=== PATIENT | male | born 1955 | race Caucasian/White ===

== ENCOUNTER 2017-09-10 17:36 | Inpatient (IN) | payer BC ==
[~2017-09-10 17:36] MED LIST: Iopamidol 370 76% 100 ML VIAL ONE; Iopamidol 370 76% 50 ML VIAL FS ONE
[2017-09-10] MEDS ORDERED: Morphine 2 MG/ML SYRINGE SLOW IVP PRN ×2 (18:00→18:52)
[2017-09-10] MEDS ORDERED: Nitroglycerin 0.4 MG TAB (25 Tab Bottle) PO PRN (18:00)
[2017-09-10] MEDS ORDERED: Ondansetron ODT 4 MG TAB PO PRN (18:02)
[2017-09-10] MEDS ORDERED: Bisacodyl 5 MG TAB PO PRN (18:02)
[2017-09-10] MEDS ORDERED: Milk Of Magnesia 30 ML UDCUP PO PRN ×2 (18:02→19:24)
[2017-09-10] MEDS ORDERED: Verapamil 5 MG/2 ML VIAL ONE (18:31)
[2017-09-10] MEDS ORDERED: Nitroglycerin 100MG/250ML BOT 250 ML ONE (18:31)
[2017-09-10] MEDS ORDERED: Heparin 10,000 UNITS/1 ML VIAL ONE (18:31)
[2017-09-10] MEDS ORDERED: Fentanyl 100 MCG/2 ML VIAL ONE (18:36)
[2017-09-10] MEDS ORDERED: Midazolam HCl 2 mg/2 ml Vial ONE (18:36)
[2017-09-10] MEDS ORDERED: Enoxaparin Sodium 30 MG/0.3 ML SYRINGE ONE (18:52)
--- NOTE | 2017-09-10 18:52 | PDOC.EVN ---
Event Note - Event Note Event Note: Patient seen briefly. has a significant cardiac history (s/p multiple stents) and presented to [facility] with chest pain. Initial troponin approx. 1.38. Has been reviewed by cardiology and will be taken for cardiac catheterization NAHOMI. Full H&P to follow.
[2017-09-10] MEDS ORDERED: Zolpidem Tartrate 5 MG TAB PO PRN (19:24)
[2017-09-10] MEDS ORDERED: Mag-Al 1200 mg/1200 mg/30 ML UDCUP PO PRN (19:24)
[2017-09-10] MEDS ORDERED: cloNIDine 0.1 MG TAB PO PRN (19:24)
[2017-09-10] MEDS ORDERED: Acetaminophen/Codeine 30-300mg Tablet PO PRN (19:24)
[2017-09-10] MEDS ORDERED: traMADol HCl 50 MG TAB PO PRN (19:24)
[2017-09-10] MEDS ORDERED: Sodium Chloride 0.9% 1,000 ML IV SCH (19:30)
--- NOTE | 2017-09-10 20:24 | CON ---
DATE OF CONSULTATION: 09/10/2017 REASON FOR CONSULTATION: Unstable angina. HISTORY OF PRESENT ILLNESS: Mr. Dorado is a very pleasant 62-year-old gentleman who is a patient of Rhett Cross. He has a history of coronary artery disease, status post stent placement x8 on mul tiple occasions both in [place] and at [facility]. He recently presented with acute onset of chest pain. It began at 1:00. The pain has been intermittent. His troponins were in the indetermin ate range. He received Lovenox in addition to nitroglycerin and morphine. Upon my arrival, after sp eaking with the ER physician x2, continued to have pain. PAST MEDICAL HISTORY: CAD, hypertension, hyperlipidemia, acid reflux, and prostate cancer. FAMILY HISTORY: Positive for CAD. HOME MEDICATIONS: Include Brilinta, Cialis, Crestor, Prilosec, Toprol, hydrochlorothiazide, Zetia, _ ____, Welchol, aspirin, and amlodipine. REVIEW OF SYSTEMS: Ten point review of systems is reviewed and as above, otherwise negative. PHYSICAL EXAMINATION: VITAL SIGNS: Blood pressure 130/70, pulse 80, respirations 20. GENERAL: Patient is a pleasant male/female who is in no acute distress. The patient appears his/her stated age. NEUROLOGIC: The patient is alert and oriented times 3 with no focal neurologic deficits. HEENT: Sclerae without icterus. Mouth has moist mucous membranes with normal pallor. NECK: No JVD. Carotid upstroke brisk. No bruits bilaterally. LUNGS: Clear to auscultation with unlabored respirations. BACK: No scoliosis or kyphosis. CARDIAC: Regular rate and rhythm with normal S1 and S2. No S3 or S4 noted. No significant rubs, mu rmurs, thrills, or gallops noted throughout the precordium. PMI is not displaced. There is no ramya ternal heave. ABDOMEN: Soft, nontender, nondistended. No peritoneal signs present. No hepatosplenomegaly. No ab normal striae. EXTREMITIES: 2+ femoral and 2+ dorsalis pedis pulses. No cyanosis, clubbing, or edema. SKIN: No gross abnormalities. PERTINENT LABS: Peak troponin 0.138, creatinine 1.09. IMPRESSION: 1. Unstable angina. 2. Coronary artery disease. RECOMMENDATIONS: Mr. Dorado continues to have chest pain despite aggressive medical therapy. At this point, I recommend urgent coronary angiography and possible PCI. I discussed the full detail with Emmanuel Dorado and the risks include but are not limited to the following: , stroke, CO, need for emergency surgery, loss of limb, bleeding, and infection, as well as a re action to the dye causing kidney failure and needing long-term dialysis. Other risks include acute st ent thrombosis and restenosis, vessel dissection, perforation, need for emergency surgery in addition to distal embolization causing chronic foot discomfort as well as amputation. All questions were an swered. I also discussed drug-coated versus nondrug-coated stent placement. We will proceed with ug-coated stent placement if needed. There are no contraindications. Further recommendations are pe nding the above.
[2017-09-10] MEDS ORDERED: Heparin 5,000 UNITS/ML VIAL SC SCH (21:00)
[2017-09-10] MEDS: Acetaminophen 325 MG TAB PO PRN (21:42)
[2017-09-10 23:13] VITALS: BMI 24.7
[2017-09-11 03:21] LABS: #Basophils 0.1 thou/uL (0.0-0.2); #Eosinphils 0.2 thou/uL (0.0-0.7); #Lymphocytes 2.5 thou/uL (1.20-3.40); #Monocytes 0.7 thou/uL (0.11-0.59); #Neutrophils 4.2 thou/uL (1.40-6.50); %Basophils 0.6 % (0.0-1.0); %Eosinophils 2.8 % (0.0-10.0); %Lymphocytes 32.7 % (21.0-51.0); %Monocytes 9.3 % (0.0-10.0); %Neutrophils 54.6 % (42.0-75.0); Hemoglobin 13.1 g/dL (14.0-18.0); Mean Corpuscular HGB CONC 33.8 g/dL (32.0-36.0); Mean Corpuscular Hemoglobin 30.1 pg (27.0-31.0); Mean Corpuscular Volume 89.1 fl (80.0-94.0); Mean Platelet Volume 8.5 fL (7.4-10.4); Platelet Count 173 thou/uL (130-400); RBC Distribution Width 12.7 % (11.5-14.5); Red Blood Cell (RBC) Count 4.36 mill/uL (4.70-6.10); White Blood Cell (WBC) Count 7.7 thou/uL (4.8-10.8)
[2017-09-11] MEDS: Acetaminophen 325 MG TAB PO PRN (06:43)
[2017-09-11] MEDS ORDERED: COLESEVELAM HCL 1875 MG PO SCH (09:00)
[2017-09-11] MEDS ORDERED: Fish Oil 1,000 MG CAP PO SCH (09:00)
[2017-09-11] MEDS ORDERED: Amlodipine 5 mg/Benazepril 20 mg CAP PO SCH (09:00)
[2017-09-11] MEDS ORDERED: Allopurinol 300 MG TAB PO SCH (09:00)
[2017-09-11] MEDS ORDERED: TICAGRELOR 90 MG TABLET PO SCH (09:00)
[2017-09-11 09:01] LABS: Anion Gap 11 mmol/L (10-20); BUN (Urea Nitrogen) 14 mg/dL (8.4-25.7); Calc. Creatinine Clearance 87 mL/min (70-130); Calcium 8.6 mg/dL (7.8-10.44); Carbon Dioxide 25 mmol/L (23-31); Chloride 107 mmol/L (98-107); Estimated GFR-MDRD 73; Glucose 89 mg/dL (80-115); Potassium 4.2 mmol/L (3.5-5.1); Sodium 139 mmol/L (136-145)
[2017-09-11 11:16] VITALS: BP 148/79
[2017-09-11 14:09] LABS: Troponin I 0.233 ng/mL (< 0.028)
[2017-09-11] MEDS ORDERED: Clopidogrel Bisulfate 75 MG TAB PO SCH (14:45)
--- NOTE | 2017-09-11 15:30 | HP ---
HISTORY OF PRESENT ILLNESS: A 62-year-old male with a past medical history of CAD status post 8 sten ts, GERD, essential hypertension, prostate cancer, hyperlipidemia, and obesity who presented to the mergency room today with a 2-day history of intermittent chest pain. Patient describes the pain as p ressure-like, substernal, radiating to his jaw and arms and associated with shortness of breath and d iaphoresis. The pain was about a 4/10, but earlier today, he was in extreme pain, rated 10/10 and hi s symptoms were progressively worsening, so he decided to present to the hospital. It was associated with some nausea, but no episodes of vomiting. He has no other cardiac, abdominal or urinary sympto ms. He was seen at [facility] where he did not have any EKG changes, but had an elevated troponin of 0.138. Cardiology was consulted and the patient was recommended to be sent to [facility] for urgent cardiac catheterization. ALLERGIES: PENICILLIN and STATINS. PAST MEDICAL HISTORY: Per HPI. HOME MEDICATIONS: Evolocumab ___ mg, tadalafil 5 mg p.o. daily, allopurinol 300 mg daily, amlodipine /benazepril 1 capsule p.o. daily, aspirin 81 mg daily, colesevelam 1875 mg p.o. b.i.d., ezetimibe 100 mg p.o. at bedtime, fish oil 2000 mg p.o. daily, metoprolol 25 mg p.o. daily, omeprazole 40 mg p.o. b.i.d., rosuvastatin 2.5 mg p.o. at bedtime, and Brilinta 90 mg p.o. b.i.d. PAST SURGICAL HISTORY: 1. Multiple stents placed. 2. Umbilical hernia repair. 3. Bilateral rotator cuff repairs. 4. Prostatectomy. 5. Cataract removal. SOCIAL HISTORY: Denies tobacco, alcohol, or illicit drugs. REVIEW OF SYSTEMS: GENERAL: Denies fever, weight changes, changes in appetite. HEENT: Denies headache, vision changes, sore throat, dysphagia. SKIN: Denies rashes or lesions. CARDIOVASCULAR: Per HPI. RESPIRATORY: Positive shortness of breath, but negative for cough or wheezing. GASTROINTESTINAL: Positive nausea, otherwise negative. GENITOURINARY: Negative. MUSCULOSKELETAL: Negative. NEUROLOGIC: Negative. HEMATOLOGIC: Denies easy bruising. PHYSICAL EXAMINATION: VITAL SIGNS: On admission, temperature 97.5, pulse 50, oxygen saturation 98% on room air, and blood pressure 113/70. GENERAL: Alert and well oriented, in mild to moderate distress secondary to chest pain. SKIN: No rashes or lesions. HEENT: Normocephalic, atraumatic. PERRLA. Extraocular muscles intact. Moist mucous membrane. HEART: Regular rate and rhythm. No murmurs, rubs or gallops. Mild tenderness to chest on palpation . LUNGS: Clear to auscultation bilaterally. No wheezes or rales. ABDOMEN: Bowel sounds positive, nontender, nondistended. EXTREMITIES: Full range of movement throughout. No joint pain. NEUROLOGIC: Oriented to time, place and person. No focal deficits. LABORATORY DATA: CBC and CMP largely unremarkable. Chest x-ray showed no acute pathology. ASSESSMENT AND PLAN: 1. Xcg-UO-xrueodp elevation myocardial infarction. The patient with a significant cardiac history p resenting with unstable angina. Initial troponin was elevated and the patient was taken to the [facility] for urgent catheterization. He will be continued on aspirin and Plavix and fuentes ssessed in the morning. 2. Hypertension, stable and . We will continue home regimen. 3. Hyperlipidemia. We will continue on rosuvastatin. 4. For his coronary artery disease, he will also be placed on sublingual nitroglycerin p.r.n., IV mo rphine p.r.n. for chest pain as well. 5. Cardiology to follow with us.
[2017-09-11 16:16] LABS: Troponin I 1.166 ng/mL (< 0.028)
[2017-09-11 16:17] VITALS: TEMP 98
[2017-09-11] MEDS ORDERED: Rosuvastatin 5 MG TAB PO SCH (21:00)
[2017-09-11] MEDS ORDERED: Ezetimibe 10 MG TAB PO SCH (21:00)
--- NOTE | 2017-09-12 00:56 | DIS ---
DATE OF ADMISSION: 09/10/2017 DATE OF DISCHARGE: 09/11/2017 CONDITION AT DISCHARGE: Stable and improved. DISCHARGE DIAGNOSIS: Non-ST elevation myocardial infarction. SECONDARY DIAGNOSES: Coronary artery disease with multiple stents, gastroesophageal reflux disease, essential hypertension, prostate cancer, hyperlipidemia, obesity. DISCHARGE MEDICATIONS: allopurinol 300 mg p.o. daily, amlodipine/benazepril 1 capsule p.o. daily, aspirin 81 mg p.o. daily, colesevelam 1875 mg p.o. b.i.d., evolocumab 140 mg, ezetimibe 10 mg p.o. at bedtime, fish oil 2000 mg p.o. daily , metoprolol succinate 25 mg p.o. daily, sublingual nitroglycerin 0.4 mg p.o. q.5 minutes p.r.n. for chest pain, omeprazole 40 mg p.o. b.i.d., rosuvastatin 2.5 mg p.o. at bedtime, tadalafil 5 mg p.o. daily, ticagrelor 90 mg p.o. b.i.d. HOSPITAL COURSE: A 62-year-old man who presented with a 2-day history of worsening chest pain intermittent, pressure-like, radiating to his arms and jaw , and associated with shortness of breath and diaphoresis. He was seen at the emergency room, where EKG showed no acute changes but he had elevated troponin. Cardiology was immediately consulted and patient was sent to [facility] for left heart catheterization where a stent was placed. This will be the patient' s 9th stent placement. He tolerated procedure well and remained stable for the next 24 hours, after which he was discharged safely home. PROCEDURES: 1. Cardiac catheterization. 2. EKG. 3. Chest x-ray. DIET: Heart-healthy diet. CONSULT: Cardiology. ACTIVITY: To resume as tolerated. Health care goals. FOLLOWUP: Patient is to follow up with his primary care physician within 1 week of discharge. He is advised to take his medications as prescribed. He is to return to the emergency room if he develops any chest pain or shortness of breath. PHYSICAL EXAMINATION: Patient was examined on the day of discharge. VITAL SIGNS: Remained stable. GENERAL: Alert and well oriented, not in acute distress. SKIN: No rashes or lesions. HEENT: Normocephalic, atraumatic. Extraocular muscles intact. Moist mucous membranes. CARDIOVASCULAR: Regular rate and rhythm. No murmurs, rubs, or gallops. CHEST: Nontender to palpation. Clear to auscultation bilaterally with no wheezes or rales. ABDOMEN: Bowel sounds positive, nontender, nondistended. No hepatosplenomegaly. EXTREMITIES: Full range of movement throughout. NEUROLOGIC: Oriented to time, place, and person, alert, no focal deficits. SKIN: No rashes or lesions. Warm and well perfused. LABORATORY DATA: CBC and CMP unremarkable. Troponin trended down. DISPOSITION: Discharged to home. DIET: Heart-healthy diet. Total time of discharge about 60 minutes including medication reconciliation, chart review, and documentation. [facility]
[2017-09-12] MEDS ORDERED: Clopidogrel Bisulfate 75 MG TAB PO SCH (09:00)
--- NOTE | 2017-09-12 15:15 | EKG ---
Test Reason : Blood Pressure : / mmHG Vent. Rate : 053 BPM Atrial Rate : 053 BPM P-R Int : 168 ms QRS Dur : 082 ms QT Int : 418 ms P-R-T Axes : 088 023 002 degrees QTc Int : 392 ms Sinus bradycardia Otherwise normal ECG Confirmed by JULIANN JOSE, JEEVAN ([id number]), fashion editor ROLDAN LINTON ([id number]) on 09/12/2017 3:14:50 PM Referred By: Confirmed By:JEEVAN HUMPHREYS MD
== END 2017-09-11 18:45 | disposition home or self-care (01) | DRG 247 ==
LOC: ERS 17:36 → CCU 21:38
PROVIDERS: ADMIT Internal Medicine; ATTEND Internal Medicine
PROC: 027034Z Dilation of Coronary Artery, One Artery with Drug-eluting Intraluminal Device, Percutaneous Approach (ICD-10-PCS; principal; 2017-09-10)
PROC: 4A023N7 Measurement of Cardiac Sampling and Pressure, Left Heart, Percutaneous Approach (ICD-10-PCS; 2017-09-10)
PROC: B2151ZZ Fluoroscopy of Left Heart using Low Osmolar Contrast (ICD-10-PCS; 2017-09-10)
DX: I21.4 Non-ST elevation (NSTEMI) myocardial infarction (principal); C61 Malignant neoplasm of prostate; I25.110 Atherosclerotic heart disease of native coronary artery with unstable angina pectoris; E78.5 Hyperlipidemia, unspecified; I10 Essential (primary) hypertension; K21.9 Gastro-esophageal reflux disease without esophagitis; E66.9 Obesity, unspecified; Z68.24 Body mass index [BMI] 24.0-24.9, adult; Z95.5 Presence of coronary angioplasty implant and graft; Z88.0 Allergy status to penicillin; Z88.9 Allergy status to unspecified drugs, medicaments and biological substances; Z82.49 Family history of ischemic heart disease and other diseases of the circulatory system
CPT/HCPCS: 36415; 71045; 80048; 80053; 82553; 84484; 85025; 92928; 93005; 93010; 93306; 93458; 93798; 94760; 96361; 96372; 96374; 96375; 99152; 99153; A4216; C1725; C1769; C1874; C1887; C9600; J1644; J1650; J2250; J2270; J2405; J3010

== ENCOUNTER 2017-09-15 18:54 | Inpatient (IN) | payer BC ==
[2017-09-15] MEDS ORDERED: Nitroglycerin 2% Ointment 1 INCH/1 GM Packet ONE (19:11)
[2017-09-15 19:17] LABS: #Basophils 0.1 thou/uL (0.0-0.2); #Eosinphils 0.2 thou/uL (0.0-0.7); #Lymphocytes 2.1 thou/uL (1.20-3.40); #Monocytes 0.6 thou/uL (0.11-0.59); #Neutrophils 3.6 thou/uL (1.40-6.50); %Basophils 1.4 % (0.0-1.0); %Eosinophils 3.6 % (0.0-10.0); %Lymphocytes 31.9 % (21.0-51.0); %Monocytes 8.5 % (0.0-10.0); %Neutrophils 54.6 % (42.0-75.0); Mean Corpuscular HGB CONC 33.4 g/dL (32.0-36.0); Mean Corpuscular Hemoglobin 28.4 pg (27.0-31.0); Mean Platelet Volume 10.1 fL (7.4-10.4); Platelet Count 187 thou/uL (130-400); RBC Distribution Width 12.1 % (11.5-14.5); Red Blood Cell (RBC) Count 4.95 mill/uL (4.70-6.10); White Blood Cell (WBC) Count 6.6 thou/uL (4.8-10.8)
[2017-09-15 19:33] LABS: ALT (SGPT) 28 U/L (8-55); AST (SGOT) 23 U/L (5-34); Albumin 4.3 g/dL (3.4-4.8); Alkaline Phosphatase 79 U/L (40-150); Anion Gap 15 mmol/L (10-20); BUN (Urea Nitrogen) 14 mg/dL (8.4-25.7); Bilirubin, Total 0.4 mg/dL (0.2-1.2); CK (CPK) 185 U/L (30-200); Calc. Creatinine Clearance 0 mL/min (70-130); Calcium 9.4 mg/dL (7.8-10.44); Carbon Dioxide 24 mmol/L (23-31); Chloride 104 mmol/L (98-107); Estimated GFR-MDRD 66; Globulin 2.5 g/dL (2.4-3.5); Glucose 125 mg/dL (80-115); Potassium 4.3 mmol/L (3.5-5.1); Protein, Total 6.8 g/dL (5.8-8.1); Sodium 139 mmol/L (136-145)
[2017-09-15 19:34] LABS: CKMB 3.3 ng/mL (0-6.6)
[2017-09-15 19:46] LABS: Troponin I 0.446 ng/mL (< 0.028)
[2017-09-15] MEDS ORDERED: Enoxaparin Sodium 100 MG/ML SYRINGE ONE (20:07)
[2017-09-15] MEDS ORDERED: Ondansetron HCl/PF 4 MG/2 ML Vial ONE ×2 (20:17→23:04)
--- NOTE | 2017-09-15 20:17 | RAD ---
PORTABLE CHEST: 09/15/17 HISTORY: Chest pain. COMPARISON: 09/10/17 study. The heart size is within normal limits. Mediastinal structures appear unremarkable. The lungs are ming ar of infiltrates. Postoperative changes of the right shoulder are noted. IMPRESSION: No active intrathoracic disease. POS: [facility]
[2017-09-16 01:55] LABS: Troponin I 0.384 ng/mL (< 0.028)
[2017-09-16 01:59] VITALS: BMI 28.8
[2017-09-16] MEDS ORDERED: Ondansetron HCl/PF 4 MG/2 ML Vial IVP PRN ×2 (02:03→08:28)
[2017-09-16] MEDS ORDERED: Ondansetron ODT 4 MG TAB SL PRN (02:03)
[2017-09-16] MEDS ORDERED: Nitroglycerin 2% Ointment 1 INCH/1 GM Packet TOP SCH ×2 (06:00→14:00)
[2017-09-16] MEDS ORDERED: HYDROcodone/Acetaminophen 5/325 mg Tablet PO PRN (08:28)
[2017-09-16] MEDS ORDERED: Ondansetron ODT 4 MG TAB PO PRN (08:28)
[2017-09-16] MEDS ORDERED: Labetalol HCl 100 MG/20 ML VIAL SLOW IVP PRN (08:28)
[2017-09-16] MEDS ORDERED: Sodium Chloride 0.9% 1,000 ML IV SCH (08:45)
--- NOTE | 2017-09-16 08:45 | HP ---
PRIMARY CARE PHYSICIAN: Zaid Trevino D.O. CHIEF COMPLAINT: Chest pain. HISTORY OF PRESENT ILLNESS: Mr. Dorado is a very pleasant 62-year-old gentleman who has a history of coronary artery disease. He has a history of previous stents placed and most recently he had a stent placed on 09/11/2017, which was just about 4 or 5 days ago. He says this is a 9th stent that he had . He says after having the stent placed, he went home and was feeling fine and then yesterday, he sa ys that he felt like getting up and getting out of the house, so he did some chores outside. He says he was doing quite a bit of walking and even some bending and stooping and says that he felt like he should probably cool down a bit and so he went inside and ate and sat on the couch and then shortly after eating, he began feeling tightness or pain in his chest. He also was concerned because he noti cristal that his blood pressure started to go up. It started at around 140/82. He waited a while and re checked it and it was 150/82 and then got as high as 160/82. He says that he began having again the tightness and then started to feel like it was squeezing. This concerned him because it was very sim ilar to the pain that he has had when he has had previous stents placed. He also said he had some ti ngling going into his left arm and he felt a bit nauseated. He called his and she basically azael ded him up in the car and started to bring him to the hospital. He says that while he was in the car he started getting nauseated and was having dry heaving. He then started feeling some shortness of breath as well. He says that he finally got to the emergency room at [facility]. There they pu t on nitroglycerin patch on him and gave him some morphine. He says that then he started getting a b it lightheaded, but he thinks that was probably due to the morphine. Now we are seeing him and he sa ys he feels fine. His chest pain has been relieved. He is no longer symptomatic. While he was in t he ER, he was evaluated. He had an EKG done which did not show any significant changes; however, his troponin was elevated at 0.4 initially and for this reason he is being placed in observation to be e valuated by Cardiology. REVIEW OF SYSTEMS: CONSTITUTIONAL: There has been no mention of any fevers, chills, no night sweats , no weight loss. HEENT: The patient does complain of a headache. He attributes it to the nitrogly cerin. He did have one episode of dizziness or lightheadedness, but no other complaints such as sore throat, rhinorrhea, neck pain or adenopathy. PULMONARY: He has occasional cough, but no hemoptysis . CARDIOVASCULAR: Primarily as of the history of present illness. He also denies any PND or orthop bassam. No lower extremity edema. GASTROINTESTINAL: He has had nausea and dry heaving, but no vomitin g, no diarrhea, no melena. GENITOURINARY: No urinary frequency or hematuria. MUSCULOSKELETAL: No mention of any muscle pains, weakness or joint pains. NEUROLOGIC: No focal weakness, numbness, no s eizures. PSYCHIATRIC: He did say he did feel a little bit anxious, but no depression. PAST MEDICAL HISTORY: Significant for hypertension, coronary artery disease, prostate cancer, season al allergies, and dyslipidemia. PAST SURGICAL HISTORY: He has had a prostatectomy, rotator cuff surgery, tonsillectomy, multiple prashant nts placed, 9 total, it sounds primarily to right coronary artery. ALLERGIES: STATINS which caused his joints to lock up. He says he is able to tolerate a low dose Cr estor every other day. FAMILY HISTORY: Significant for hypertension and heart disease as well as elevated cholesterol. CURRENT MEDICATIONS: Include Prilosec 40 mg twice daily, amlodipine/benazepril 5/20 daily, metoprolo l succinate 25 mg daily, allopurinol 300 mg daily, Welchol 1875 mg twice a day, Zetia 10 mg daily, Cr estor 2.5 mg every other day, aspirin 81 mg daily, Cialis 5 mg daily, fish oil 2000 mg daily, Nitrost at p.r.n., Brilinta 90 mg twice a day. PHYSICAL EXAMINATION: GENERAL: He is alert and oriented. He appears to be in no acute distress. VITAL SIGNS: Blood pressure was 126/70, heart rate 60, respiratory rate of 18, temperature is 98.6. HEENT: Pupils are equal, round, and reactive. Extraocular muscles are intact. His sclerae are anic teric. Throat; no erythema, no exudates. NECK: No adenopathy, no bruits. LUNGS: Clear to auscultation. I did not appreciate any wheezing or rales. CARDIOVASCULAR: He has a normal S1, S2. There is no S3 or S4. No murmurs, clicks or rubs. ABDOMEN: Soft, nontender, and nondistended. Positive for bowel sounds. No rebound or guarding. EXTREMITIES: There is no clubbing, cyanosis, no edema. He has palpable dorsalis pedis pulses bilate rally. NEUROLOGIC: Neurologically, exam is nonfocal. IMAGING DATA AND LABORATORY DATA: Again on his EKG, it was sinus rhythm, rate was 65. There are no ST wave changes. Sodium is 139, potassium 4.3, chloride is 104, CO2 is 24, BUN of 14, creatinine 1.1 2, and glucose is 125. White blood cell count 6.6, hemoglobin 14, hematocrit is 42, platelet count i s 187 and on his troponin, the initial was 0.446. ASSESSMENT AND PLAN: This is a pleasant 62-year-old gentleman who presents to the emergency room wit h a recurrence of chest pain which is very similar to angina which he has experienced in the past. Kristie beckwith also has elevated troponin level. The initial troponin was actually slightly higher than the tropo troy that he had initially on his previous admission. He will be placed in observation. We will star t him on aspirin and nitrates, continue Brilinta, continue to trend his cardiac enzymes few more time . Continue his beta jaime therapy and consult Cardiology for further recommendations. For dyslipi demia, we will continue his usual home medications for this. Hypertension. Again, we will continue his home medications. See if this appears to be well controlled at this time. Further recommendatio ns will be based on Cardiology consultation.
[2017-09-16] MEDS ORDERED: Lorazepam 0.5 MG TAB PO PRN (08:49)
[2017-09-16] MEDS ORDERED: Non-Formulary Item 1 EACH (Omeprazole Magnesium [Prilosec] 40 MG) PO SCH (09:00)
[2017-09-16] MEDS ORDERED: Colesevelam Hcl [Welchol] 1,875 MG PO SCH (09:00)
[2017-09-16] MEDS ORDERED: COLESEVELAM HCL 1875 MG PO SCH (09:00)
[2017-09-16] MEDS: Docusate 100 MG CAP PO SCH ×2 (09:19→21:11)
[2017-09-16] MEDS: Fish Oil 1,000 MG CAP PO SCH (09:19)
[2017-09-16] MEDS: Allopurinol 300 MG TAB PO SCH (09:19)
[2017-09-16] MEDS: Acetaminophen 325 MG TAB PO PRN ×2 (09:20→21:10)
[2017-09-16] MEDS: TICAGRELOR 90 MG TABLET PO SCH ×2 (10:44→21:11)
[2017-09-16] MEDS: Amlodipine 5 mg/Benazepril 20 mg CAP PO SCH (10:44)
--- NOTE | 2017-09-16 11:58 | CON ---
DATE OF CONSULTATION: 09/16/2017 REASON FOR CONSULTATION: Chest pain, recent stent implantation, unstable angina. HISTORY OF PRESENT ILLNESS: Mr. David Dorado is a 62-year-old man. He recently was admitted to the hospital with intractable chest pain. He was seen by Dr. Rea and taken to cardiac catheteriza tion lab, 09/10/2017. The patient had multiple stents implanted in the right coronary artery at prev ious visits. The patient had a critical stenosis in the right coronary artery and underwent repeat s tent implantation. The stent, which was placed, was a day drug-eluting stent, which was post-dilated high pressure. The stent was a Synergy 3.5 x 20 mm, dilated to 4 mm in maximum inflation at 16 atmo spheres. The patient did well. He was released home. The next day he felt some soreness in his chest, but no chest pain. Last night after walking, he has had a chest pressure, which did not resolve. He had n itroglycerin, but was not sure this is a reason to take it. He went to the emergency room. He recei annmarie nitro paste and had gradual resolution of discomfort, resting comfortably now. He said this is i dentical in nature in terms of the previous angina, but not as severe what he had had last week. MEDICATIONS: 1. Aspirin. 2. Brilinta. 3. Cannot take statins, he is allergic 4. Repatha. 5. Metoprolol. 6. He is on nitrates now. FAMILY HISTORY: Negative for heart disease at a young age. ALLERGIES: STATINS and PENICILLIN. REVIEW OF SYSTEMS: Constitutional: No significant weight gain or loss. Vision: No changes. Heari ng: No changes. Pulmonary: No cough or wheezing. Gastrointestinal: No nausea, vomiting, diarrhea . Skin: No rashes. Neurologic: No unilateral weakness or numbness. Psychiatric: No unusual depr ession or anxiety. PHYSICAL EXAMINATION: GENERAL: This is a pleasant 62-year-old man in no distress. VITAL SIGNS: Blood pressure 124/64, pulse 50 and it is regular. HEENT: Eyes: Sclerae nonicteric. Mouth: Mucous membranes moist. NECK: Supple, no lymphadenopathy. LUNGS: Clear, no wheezing, rales, or rhonchi. CARDIAC: Normal S1, normal S2. There is no murmur, rub, or gallop. ABDOMEN: Soft, nontender, no hepatosplenomegaly. EXTREMITIES: Warm, dry. No clubbing, cyanosis, or edema. Review of records, recent ejection fraction was 50%-55%, distal RV hypokinetic. PERTINENT LABORATORY DATA: The troponin is 0.446 on admission and it trended down to 0.340 today. T he peak troponin last week was 1.16. EKG did not show any ischemic changes. ASSESSMENT: 1. Unstable angina. 2. Recent stent implantation for non-ST elevation infarction. The patient is pain free now. Clearly, this is not a stent thrombosis. Most likely, this represents pain and small amount of injury due to occlusion or stenosis of side branches to the right ventricle . PLAN: 1. We will repeat echocardiogram to reevaluate the left ventricular wall motion. The patient will c ontinue all other medicines, unchanged. 2. Reduce nitrates as he is having severe headaches. If he is doing well tomorrow, we will release him home. If pain persists, could consider repeat catheterization, but this is most likely side bran ch issues and no interventional therapy would be indicated in this situation.
[2017-09-16 13:11] LABS: Critical Call Chem Troponin I RESULT DECREASING; Troponin I 0.316 ng/mL (< 0.028)
[2017-09-16] MEDS: Nitroglycerin 2% Ointment 1 INCH/1 GM Packet TOP SCH ×2 (14:53→21:13)
[2017-09-16] MEDS ORDERED: Ezetimibe 10 MG TAB PO SCH (21:00)
[2017-09-16] MEDS ORDERED: Rosuvastatin 5 MG TAB PO SCH (21:00)
[2017-09-17 06:00] LABS: #Eosinphils 0.2 thou/uL (0.0-0.7); #Lymphocytes 1.8 thou/uL (1.20-3.40); #Monocytes 0.6 thou/uL (0.11-0.59); #Neutrophils 3.2 thou/uL (1.40-6.50); %Basophils 0.6 % (0.0-1.0); %Lymphocytes 30.4 % (21.0-51.0); %Monocytes 10.6 % (0.0-10.0); %Neutrophils 54.3 % (42.0-75.0); Hemoglobin 13.6 g/dL (14.0-18.0); Mean Corpuscular HGB CONC 33.9 g/dL (32.0-36.0); Mean Corpuscular Hemoglobin 30.1 pg (27.0-31.0); Mean Corpuscular Volume 88.7 fl (80.0-94.0); Mean Platelet Volume 9.2 fL (7.4-10.4); Platelet Count 181 thou/uL (130-400); RBC Distribution Width 12.5 % (11.5-14.5); Red Blood Cell (RBC) Count 4.52 mill/uL (4.70-6.10); White Blood Cell (WBC) Count 5.9 thou/uL (4.8-10.8)
[2017-09-17 06:25] LABS: Anion Gap 12 mmol/L (10-20); BUN (Urea Nitrogen) 18 mg/dL (8.4-25.7); Calc. Creatinine Clearance 109 mL/min (70-130); Calcium 9.1 mg/dL (7.8-10.44); Carbon Dioxide 25 mmol/L (23-31); Chloride 107 mmol/L (98-107); Estimated GFR-MDRD 81; Glucose 92 mg/dL (80-115); Potassium 3.9 mmol/L (3.5-5.1); Sodium 140 mmol/L (136-145)
[2017-09-17 06:33] LABS: Troponin I 0.207 ng/mL (< 0.028)
[2017-09-17] MEDS: Fish Oil 1,000 MG CAP PO SCH (07:59)
[2017-09-17] MEDS: Allopurinol 300 MG TAB PO SCH (07:59)
[2017-09-17] MEDS: Amlodipine 5 mg/Benazepril 20 mg CAP PO SCH (07:59)
[2017-09-17] MEDS: TICAGRELOR 90 MG TABLET PO SCH (08:00)
[2017-09-17] MEDS: Docusate 100 MG CAP PO SCH (08:03)
[2017-09-17] MEDS: Nitroglycerin 2% Ointment 1 INCH/1 GM Packet TOP SCH (08:29)
--- NOTE | 2017-09-17 10:57 | PDOC.PN ---
- Subjective Encounter Start Date: 09/17/17 Encounter Start Time: 10:55 Mr. rosas is feeling better today. He has not had any chest pain today. He has been up walking around without difficulty. - Objective Resuscitation Status: Resuscitation Status FULL:Full Resuscitation MAR Reviewed: Yes Vital Signs & Weight: Vital Signs (12 hours) Temp Pulse Resp BP BP Pulse Ox 09/17/17 08:01 98.3 F 55 L 20 97 09/17/17 07:22 98.3 F 55 L 20 115/69 97 09/17/17 05:01 95 09/17/17 04:00 98.1 F 49 L 16 126/74 95 09/17/17 00:00 98.2 F 54 L 14 111/61 96 Weight Weight 213 lb 1.6 oz I&O: 09/16/17 09/17/17 09/18/17 06:59 06:59 06:59 Intake Total 470 1350 Output Total 0 Balance 470 1350 Result Diagrams: 09/17/17 04:28 09/17/17 04:28 Phys Exam - Physical Examination HEENT: PERRLA Respiratory: no wheezing, no rales, no rhonchi, clear to auscultation bilateral Cardiovascular: RRR, no significant murmur Gastrointestinal: soft, non-tender, positive bowel sounds Musculoskeletal: no edema Dx/Plan (1) Angina pectoris without myocardial infarction Code(s): I20.9 - ANGINA PECTORIS, UNSPECIFIED Status: Acute (2) CAD (coronary artery disease) Code(s): I25.10 - ATHSCL HEART DISEASE OF [place] CORONARY ARTERY W/O ANG PCTRS Status: Acute (3) HLD (hyperlipidemia) Code(s): E78.5 - HYPERLIPIDEMIA, UNSPECIFIED Status: Acute (4) HTN (hypertension) Code(s): I10 - ESSENTIAL (PRIMARY) HYPERTENSION Status: Acute - Plan * Angina- improved. Cardiology evaluation noted * Echo has been done, and awaiting results * HTN - blood pressure is stable. * Possibly home later today
[2017-09-17 11:26] VITALS: BP 110/66; TEMP 98.6
--- NOTE | 2017-09-17 13:31 | PRG ---
DATE OF SERVICE: 09/17/2017 SUBJECTIVE: Mr. Dorado has had no further chest pain. He feels well. OBJECTIVE: VITAL SIGNS: His blood pressure 110/66, pulse 53 and regular. LUNGS: Clear. CARDIAC: Normal S1, normal S2. ABDOMEN: Soft, nontender. EXTREMITIES: No edema. Echocardiogram showed normal left ventricular function. The troponin level continues to trend down, down to 0.207 today. ASSESSMENT: 1. Recent stent implantation in the right coronary artery for severe recent in-stent restenosis. 2. Recurrent chest pain associated with low level troponin and acute coronary syndrome, probably rel ated to right ventricular branches stented across. PLAN: The patient will be released home on the current medical regimen. See me in the office in [facility] a month. The patient has had no further chest pain since admission.
--- NOTE | 2017-09-18 15:44 | DIS ---
DATE OF ADMISSION: 09/16/2017 DATE OF DISCHARGE: 09/17/2017 PRIMARY CARE PROVIDER: Zaid Trevino D.O. DISCHARGE DISPOSITION: Home. PRIMARY DISCHARGE DIAGNOSES: 1. Acute coronary syndrome. 2. Coronary artery disease, status post recent stent. 3. Benign prostatic hypertrophy. 4. Seasonal allergies. 5. Dyslipidemia. DISCHARGE MEDICATIONS: Include Brilinta 90 mg twice a day, Cialis 5 mg daily, Crestor 2.5 mg daily, Prilosec 40 mg twice a day, Nitrostat 0.4 sublingual p.r.n., metoprolol XL 25 mg daily, fish oil 2000 mg daily, Zetia 10 mg at bedtime, Welchol 1875 mg twice a day, aspirin 81 mg daily, amlodipine/benaz epril 5/20 daily and allopurinol 300 mg daily. PROCEDURES DONE DURING ADMISSION: The patient had an echocardiogram and it demonstrated an ejection fraction of 55% to 60%, mildly enlarged right ventricular cavity, structurally normal valves, normal PA pressure. CODE STATUS: FULL CODE. ALLERGIES: PENICILLIN, STATINS and HMG-COA REDUCTASE INHIBITOR. HOSPITAL COURSE: Mr. Dorado is a pleasant 62-year-old gentleman who presented to the emergency room c omplaining of chest pain. He had just had a stent placed about 4-5 days prior to this and when he wa s evaluated in the emergency room, he was found to have a troponin, which was elevated at 0.4. He wa s seen by Cardiology and it was felt that the patient did in fact have an acute coronary syndrome, bu t likely as a result of the right coronary is being stented across and therefore no additional workup or treatment change needed to be made. The patient at the time of discharge, his chest pain had res olved and we will continue the same medications and to follow up with Dr. Cross as instructed and al so with his primary care physician in 1-2 weeks.
== END 2017-09-17 15:49 | disposition home or self-care (01) | DRG 281 ==
LOC: SCSER 18:54 → 2SE 09-16 01:32
PROVIDERS: ADMIT Internal Medicine; ATTEND Internal Medicine
DX: I25.110 Atherosclerotic heart disease of native coronary artery with unstable angina pectoris (principal); I21.9 Acute myocardial infarction, unspecified; E78.5 Hyperlipidemia, unspecified; I10 Essential (primary) hypertension; Z95.5 Presence of coronary angioplasty implant and graft; Z85.46 Personal history of malignant neoplasm of prostate; J30.2 Other seasonal allergic rhinitis; Z90.79 Acquired absence of other genital organ(s); Z88.8 Allergy status to other drugs, medicaments and biological substances; Z79.82 Long term (current) use of aspirin; I25.2 Old myocardial infarction
CPT/HCPCS: 36415; 71045; 80048; 80053; 82550; 82553; 84484; 85025; 93005; 93306; 94760; 96372; 96374; 96375; 96376; A4216; J1650; J2270; J2405

== ENCOUNTER → 2018-01-15 | Day surgery (SDC) | payer BC ==
[~2018-01-15] MED LIST changes: +Fentanyl 100 MCG/2 ML VIAL ONE; -Iopamidol 370 76% 100 ML VIAL ONE; -Iopamidol 370 76% 50 ML VIAL FS ONE; +Midazolam HCl 2 mg/2 ml Vial ONE
--- NOTE | 2018-01-15 11:58 | RAD ---
FIVE VIEWS OF THE CERVICAL SPINE: HISTORY: Neck pain. FINDINGS: Five views of the cervical spine show normal height and alignment of vertebral bodies without fractur e or subluxation. Moderate osteophytes are seen in the mid cervical spine. No prevertebral soft tis gabriela swelling is seen. Alignment is unchanged with flexion and extension. IMPRESSION: Moderate degenerative changes of the cervical spine without acute osseous abnormality. POS: [facility]
--- NOTE | 2018-01-15 13:17 | MRI ---
MRI OF THE CERVICAL SPINE WITHOUT CONTRAST: COMPARISON: None. HISTORY: Cervical spine pain. TECHNIQUE: Multiplanar, multisequence MR images were obtained of the cervical spine without contrast. FINDINGS: Generalized disk desiccation is seen. The vertebral bodies demonstrate normal height and alignment w ithout fracture or subluxation. Anterior osteophytes are seen throughout the cervical spine. There is abnormal high T2 signal within the central cervical cord posterior to the C3 and C vertebral bodies. This extends a length of approximately 1.9 cm. There appears to be expansion of the cord i n this region compared to the cord above and below this level rather than atrophy of the cord in this location. The craniocervical junction is unremarkable. C2-3: Unremarkable. C3-4: A large disk-osteophyte complex is seen. Severe central canal stenosis. Severe bilateral christian ral foraminal stenosis. No posterior facet arthrosis. C4-5: A moderate disk-osteophyte complex is seen. No posterior facet arthrosis. Moderate central c anal stenosis. Severe bilateral neural foraminal stenosis. C5-6: A moderate disk-osteophyte complex is seen. Mild right posterior facet arthrosis. No left po sterior facet arthrosis. Moderate central canal stenosis. Moderate to severe bilateral neural madhu inal stenosis. C6-7: A moderate disk-osteophyte complex is seen. No posterior facet arthrosis. Mild central canal stenosis. Mild to moderate bilateral neural foraminal stenosis. C7-T1: A small disk-osteophyte complex is seen. No posterior facet arthrosis. No central canal prashant nosis. Mild bilateral neural foraminal stenosis. IMPRESSION: 1. There is abnormal signal within the cervical cord. An MRI of the cervical spine with contrast is recommended to evaluate for enhancement of this region and to exclude an intraaxial enhancing mass. This could represent cord edema as the central canal stenosis is greatest in this location. 2. Degenerative changes of the cervical spine as above. CODE T POS: [facility]
== END ==
LOC: SDC/OP 09:57
PROVIDERS: ATTEND Neurological Surgery
DX: M50.30 Other cervical disc degeneration, unspecified cervical region (principal); M48.02 Spinal stenosis, cervical region; Z88.0 Allergy status to penicillin; Z88.8 Allergy status to other drugs, medicaments and biological substances; Z79.02 Long term (current) use of antithrombotics/antiplatelets; Z79.82 Long term (current) use of aspirin; Z79.899 Other long term (current) drug therapy
CPT/HCPCS: 72050; 72141; J2250; J3010

== ENCOUNTER 2018-01-29 15:33 | Inpatient (IN) | payer BC ==
[2018-01-29 16:17] LABS: #Basophils 0.1 thou/uL (0.0-0.2); #Eosinphils 0.1 thou/uL (0.0-0.7); #Lymphocytes 2.1 thou/uL (1.20-3.40); #Monocytes 0.5 thou/uL (0.11-0.59); #Neutrophils 4.3 thou/uL (1.40-6.50); %Basophils 0.8 % (0.0-1.0); %Eosinophils 2.1 % (0.0-10.0); %Lymphocytes 29.1 % (21.0-51.0); %Monocytes 6.7 % (0.0-10.0); %Neutrophils 61.4 % (42.0-75.0); Hemoglobin 15.1 g/dL (14.0-18.0); Mean Corpuscular HGB CONC 34.4 g/dL (32.0-36.0); Mean Corpuscular Hemoglobin 29.5 pg (27.0-31.0); Mean Corpuscular Volume 85.6 fl (80.0-94.0); Platelet Count 221 thou/uL (130-400); Red Blood Cell (RBC) Count 5.12 mill/uL (4.70-6.10); White Blood Cell (WBC) Count 7.1 thou/uL (4.8-10.8)
[2018-01-29] MEDS ORDERED: Nitroglycerin 2% Ointment 1 INCH/1 GM Packet ONE (16:18)
[2018-01-29 16:39] LABS: ALT (SGPT) 24 U/L (8-55); AST (SGOT) 21 U/L (5-34); Albumin 4.5 g/dL (3.4-4.8); Alkaline Phosphatase 91 U/L (40-150); Anion Gap 13 mmol/L (10-20); BUN (Urea Nitrogen) 16 mg/dL (8.4-25.7); Bilirubin, Total 0.5 mg/dL (0.2-1.2); CK (CPK) 159 U/L (30-200); Calc. Creatinine Clearance 0 mL/min (70-130); Calcium 9.5 mg/dL (7.8-10.44); Carbon Dioxide 24 mmol/L (23-31); Chloride 104 mmol/L (98-107); Estimated GFR-MDRD 76; Globulin 2.8 g/dL (2.4-3.5); Glucose 143 mg/dL (80-115); Potassium 3.9 mmol/L (3.5-5.1); Protein, Total 7.3 g/dL (5.8-8.1); Sodium 137 mmol/L (136-145)
[2018-01-29 16:43] LABS: CKMB 2.7 ng/mL (0-6.6); Troponin I Less than 0.010 ng/mL (< 0.028)
--- NOTE | 2018-01-29 16:48 | RAD ---
UPRIGHT PORTABLE CHEST ONE VIEW: 01/29/18 HISTORY: 62-year-old female with history of chest pain, history of nine cardiac stents. COMPARISON: 09/15/17. FINDINGS: Monitor leads overlie the chest. Heart size is within normal limits. Old right sided granulomatous di sease. No confluent pneumonia, overt edema or pleural effusion. IMPRESSION: Old granulomatous disease. Atherosclerosis of the aorta. Evidence for coronary vascular stents. No ac [place] intrathoracic disease. POS: [facility]
[2018-01-29] MEDS ORDERED: Ondansetron ODT 4 MG TAB ONE (19:00)
[2018-01-29] MEDS ORDERED: Metoclopramide HCl 10 MG/2 ML VIAL ONE (19:50)
[2018-01-29] MEDS ORDERED: Atropine Sulfate 1 mg/10 ml Syringe ONE (19:50)
[2018-01-29 21:15] LABS: Troponin I Less than 0.010 ng/mL (< 0.028)
[2018-01-29] MEDS ORDERED: Ondansetron HCl/PF 4 MG/2 ML Vial IVP PRN (21:25)
[2018-01-29] MEDS ORDERED: Ondansetron ODT 4 MG TAB SL PRN (21:25)
[2018-01-29] MEDS ORDERED: Acetaminophen 325 MG TAB PO PRN (21:25)
--- NOTE | 2018-01-29 22:31 | HP ---
DATE OF ADMISSION: 01/29/2018 TIME OF SERVICE: 2114. PRIMARY CARE PHYSICIAN: Zaid Trevino DO PRIMARY VIRTUAL CLASSROOM MANAGER: Eleni Cross MD CHIEF COMPLAINT: Chest pressure. HISTORY OF PRESENT ILLNESS: Mr. Dorado is a 62-year-old male with a history of known coronary artery disease, status post [place] with his last event back in 08/2017; hyperlipidemia; hypertension; and prosta te cancer, status post prostatectomy some 10 years ago. The patient was scheduled to have a C3-C4 surgery for cervical spinal stenosis by Dr. Franco and w as referred to Dr. Cross, his normal pocket creaser, for cardiac clearance. Dr. Cross decided to get a stress test 2 days ago, which was abnormal. Dr. Cross being out of town was scheduled to see him on Thursday morning coming in 2 days for a scheduled heart catheterization prior to surgery. Today ar ound 10:00 a.m., the patient was at work. 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 He took 4 aspirin and came to the emergency department for evaluation. Workup in our ER was negative. EKG was normal. Troponin I was undetectable, less than 0.010; and CK -MB was normal at 2.7. His chest pain started around 10:00 a.m. and persisted until he presented to the ER about an hour ago. He did have some nausea without vomiting. No diaphoresis. No fevers or chills. No cough or sputum production. No reflux symptoms. PAST MEDICAL HISTORY: 1. Coronary artery disease. 2. Status post myocardial infarction 4 months ago. 3. Hyperlipidemia. 4. Hypertension. 5. History of prostate cancer. PAST SURGICAL HISTORY: 1. PTCA with PCI in the past. He has a total of 9 stents. 2. Hernia, umbilical. 3. Bilateral rotator cuff repair, one 5 and one 8 years ago. 4. Prostatectomy about 10 years ago. MEDICATIONS: 1. Amlodipine/benazepril 5/40 p.o. daily. 2. Metoprolol succinate 25 mg daily. 3. Omeprazole 40 mg daily. 4. Zetia 10 mg p.o. daily. 5. Allopurinol 300 mg daily. 6. Crestor 2.5 mg p.o. every other day. 7. Plavix 75 mg daily. 8. Aspirin 81 mg daily. 9. Repatha 140 mg IM every other week. 10. Welchol 625 mg tablet x4 daily. ALLERGIES: PENICILLIN and STATIN causes muscle aches. FAMILY HISTORY: Negative for clotting or bleeding disorder. No immune dysfunction. SOCIAL HISTORY: Negative for habits x3. He is . His does come in. He is monogamous. No recent travel. REVIEW OF SYSTEMS: All systems reviewed and negative except as stated per HPI. PHYSICAL EXAMINATION: VITAL SIGNS: Temperature current is 98.6, pulse 62, blood pressure 132/71, respiratory rate 18, satt ing 97% on room air. GENERAL: He is awake. He is alert. He is oriented x3. Well-developed, well-nourished, white male who appears age appropriate. He is in no distress. HEENT: Normocephalic, atraumatic. Pupils are equal, round, and reactive to light bilaterally. Muco us membranes are moist. No visible lesion. No thrush. NECK: Supple. No lymphadenopathy, JVD, or thyromegaly. He has normal carotid upstrokes. I do not appreciate bruit. LUNGS: Clear. He has symmetrical chest excursion with good air movement. No wheeze, no rales, no r honchi. CARDIOVASCULAR: Normal S1 and S2. No S3 or S4. I do not appreciate murmurs. ABDOMEN: Soft. It is nontender, nondistended. No mass or organomegaly. EXTREMITIES: No cyanosis, no clubbing, no edema. 1+ dorsalis pedis pulses and thready posterior tib ial pulses. SKIN: Warm, moist, and well perfused. He has no rash or lesions. MUSCULOSKELETAL: Normal to inspection. Large joints appeared normal. There is no evidence of infla mmation or palpable effusions. NEUROLOGIC: Cranial nerves II-XII are grossly intact. He has no focal deficits. Normal speech, 5/5 strength in all 4 extremities. LABORATORY DATA: Sodium 137, potassium 3.9, chloride 104, bicarbonate 24, BUN 16, creatinine 0.99, g lucose 143, calcium 9.5. Liver function is completely within normal limits. CBC showed a white coun t of 7.1, hemoglobin of 15.1, hematocrit of 43.9, and platelet count is 221,000. CK-MB is normal at 2.7. Troponin I is less than 0.010. Chest x-ray showed no acute cardiopulmonary disease. ASSESSMENT AND PLAN: 1. Acute coronary syndrome 2. The patient does have a history of coronary disease with an abnormal stress test. He has negative biomarkers. We will place him in observation status. We will get marcos rose cardiac biomarkers and watch him overnight. We will ask Cardiology to see him. We will leave it up to them whether they keep him through the weekend for heart catheterization on Thursday or let him g o home and follow up again on Thursday morning. We will place him on nitroglycerin paste, increase his beta blockade as tolerated, and we will get serial cardiac biomarkers. A morning fasting lipid prof ile has been ordered. 2. History of hyperlipidemia. He is intolerant of statin, but does tolerate Crestor every other day at a low dose and Zetia. We will continue those. 3. Hypertension, essential. We will continue his home medications. 4. History of prostate cancer, status post prostatectomy some 10 years ago.
[2018-01-29 23:29] LABS: Troponin I Less than 0.010 ng/mL (< 0.028)
[2018-01-30] MEDS ORDERED: Ondansetron ODT 4 MG TAB PO PRN (06:07)
[2018-01-30] MEDS ORDERED: Nitroglycerin 0.4 MG TAB (25 Tab Bottle) SL PRN (06:07)
[2018-01-30] MEDS ORDERED: Enoxaparin Sodium 40 MG/0.4 ML SYRINGE SC SCH (06:07)
[2018-01-30] MEDS ORDERED: Ondansetron HCl/PF 4 MG/2 ML Vial IVP PRN (06:07)
[2018-01-30] MEDS ORDERED: HYDROcodone/Acetaminophen 5/325 mg Tablet PO PRN (06:07)
[2018-01-30] MEDS: Nitroglycerin 2% Ointment 1 INCH/1 GM Packet TOP SCH ×3 (07:05→21:08)
[2018-01-30 07:09] LABS: CKMB 1.6 ng/mL (0-6.6); Troponin I Less than 0.010 ng/mL (< 0.028)
[2018-01-30] MEDS ORDERED: Clopidogrel Bisulfate 75 MG TAB ONE (08:11)
[2018-01-30] MEDS: Acetaminophen 325 MG TAB PO PRN ×2 (10:11→18:18)
[2018-01-30] MEDS: Aspirin 325 MG TAB PO SCH (10:11)
[2018-01-30] MEDS: Allopurinol 300 MG TAB PO SCH (10:11)
[2018-01-30] MEDS: Clopidogrel Bisulfate 75 MG TAB PO SCH (10:13)
[2018-01-30] MEDS: Famotidine 20 MG TAB PO SCH ×2 (10:13→21:07)
[2018-01-30] MEDS: Amlodipine 5 mg/Benazepril 20 mg CAP PO SCH (12:11)
--- NOTE | 2018-01-30 12:42 | PDOC.PN ---
- Subjective Encounter Start Date: 01/30/18 Encounter Start Time: 10:30 Subjective: pt up in bed no complains - Objective Resuscitation Status: Resuscitation Status FULL:Full Resuscitation Vital Signs & Weight: Vital Signs (12 hours) Temp Pulse Resp BP Pulse Ox 01/30/18 07:47 98 F 48 L 18 129/61 96 01/30/18 07:41 98 F 48 L 18 01/30/18 03:53 98.3 F 45 L 18 114/68 98 Weight Weight 203 lb 3.2 oz I&O: 01/29/18 01/30/18 01/31/18 06:59 06:59 06:59 Intake Total 120 Output Total 600 Balance -480 Result Diagrams: 01/29/18 16:11 01/29/18 16:10 Phys Exam - Physical Examination HEENT: PERRLA, moist MMs, sclera anicteric, TM's clear, oral pharynx no lesions , 2+ tonsils Neck: no nodes, no JVD, supple, full ROM Respiratory: no wheezing, no rales, no rhonchi, wheezing present, clear to auscultation bilateral Cardiovascular: RRR, no significant murmur, no rub, gallop, irregular Gastrointestinal: soft, non-tender, no distention, positive bowel sounds Musculoskeletal: no edema, pulses present, edema present Dx/Plan (1) Angina pectoris without myocardial infarction Code(s): I20.9 - ANGINA PECTORIS, UNSPECIFIED Status: Acute (2) CAD (coronary artery disease) Code(s): I25.10 - ATHSCL HEART DISEASE OF [place] CORONARY ARTERY W/O ANG PCTRS Status: Acute (3) HTN (hypertension) Code(s): I10 - ESSENTIAL (PRIMARY) HYPERTENSION Status: Acute (4) HLD (hyperlipidemia) Code(s): E78.5 - HYPERLIPIDEMIA, UNSPECIFIED Status: Acute - Plan * . pt is chest pain free continue home meds pt is bradycardia was on toprol has lost 10lbs in 3-4 months. pt on asa/plavix and will continue his home dose of antihyperlipidemia Review of Systems - Review of Systems Eyes: negative: Pain, Vision Change, Conjunctivae Inflammation, Eyelid Inflammation, Redness, Other ENT: negative: Ear Pain, Ear Discharge, Nose Pain, Nose Discharge, Nose Congestion, Mouth Pain, Mouth Swelling, Throat Pain, Throat Swelling, Other Respiratory: negative: Cough, Dry, Shortness of Breath, Hemoptysis, SOB with Excertion, Pleuritic Pain, Sputum, Wheezing Cardiovascular: negative: chest pain, palpitations, orthopnea, paroxysmal nocturnal dyspnea, edema, light headedness, other Gastrointestinal: negative: Nausea, Vomiting, Abdominal Pain, Diarrhea, Constipation, Melena, Hematochezia, Other - Medications/Allergies Allergies/Adverse Reactions: Allergies Allergy/AdvReac Type Severity Reaction Status Date / Time Penicillins Allergy Verified 01/29/18 21:44 [id number] Reductase Allergy Verified 01/29/18 21:44 Inhibitor Medications: Current Medications Acetaminophen (Tylenol) 650 mg PO Q4H PRN PRN Reason: Headache/Fever or Pain Last Admin: 01/30/18 10:11 Dose: 650 mg Hydrocodone Bitart/Acetaminophen ([place] 5/325) 1 tab PO Q4H PRN PRN Reason: Moderate Pain (4-6) Allopurinol (Zyloprim) 300 mg PO DAILY [facility] Last Admin: 01/30/18 10:11 Dose: 300 mg Amlodipine/Benazepril HCl (Lotrel 5/20) 1 cap PO DAILY [facility] Last Admin: 01/30/18 12:11 Dose: 1 cap Aspirin (Aspirin) 325 mg PO DAILY [facility] Last Admin: 01/30/18 10:11 Dose: 325 mg Clopidogrel Bisulfate (Plavix) 75 mg PO DAILY [facility] Last Admin: 01/30/18 10:13 Dose: 75 mg Ezetimibe (Zetia) 10 mg PO HS [facility] Enoxaparin Sodium (Lovenox) 40 mg SC 0900 [facility] Famotidine (Pepcid) 20 mg PO BID [facility] Last Admin: 01/30/18 10:13 Dose: 20 mg Metoprolol Succinate (Toprol Xl) 25 mg PO DAILY [facility] Last Admin: 01/30/18 10:12 Dose: 25 mg Nitroglycerin (Nitro-Bid 2% Ointment) 1 inch TOP Q8HR [facility] Last Admin: 01/30/18 07:05 Dose: Not Given Nitroglycerin (Nitrostat) 0.4 mg SL Q5MIN PRN PRN Reason: Chest Pain Non-Formulary Medication (Evolocumab [Repatha Syringe]) 140 mg SC ROUTINE [facility] Non-Formulary Medication (Omeprazole Magnesium [Prilosec]) 40 mg PO BID [facility] Non-Formulary Medication (Non-Formulary Item) 1 each FS ONE [facility] Ondansetron HCl (Zofran Odt) 4 mg PO Q6H PRN PRN Reason: Nausea/Vomiting Ondansetron HCl (Zofran) 4 mg IVP Q6H PRN PRN Reason: Nausea/Vomiting Rosuvastatin Calcium (Crestor) 2.5 mg PO Q2D [facility]UCK Rosuvastatin Calcium (Crestor) 2.5 mg PO Q2DAYS [facility]
[2018-01-30] MEDS ORDERED: Rosuvastatin 5 MG TAB PO SCH (12:45)
[2018-01-30] MEDS ORDERED: Evolocumab [Repatha Syringe] 140 MG SC SCH (13:00)
[2018-01-30 14:45] LABS: CKMB 2.4 ng/mL (0-6.6); Troponin I 0.015 ng/mL (< 0.028)
[2018-01-30] MEDS ORDERED: Communication Order-Pharmacy FS SCH (18:00)
--- NOTE | 2018-01-30 18:15 | CON ---
DATE OF CONSULTATION: 01/30/2018 HISTORY OF PRESENT ILLNESS: David Dorado is a 62-year-old white male, patient of Dr. Cross, who has had multiple stents placed in the past. Initially, these were placed in [place] before he moved here. He was hospitalized here in 12/2006 with increased chest discomfort. At catheterization, he had minimal left anterior descending disease, circumflex stent continued to show good results. There was a 90% mid RCA in-stent re-stenosis. Synergy 4.0 x 24- mm stent was placed and postdilated with a non-compliant 4.0-mm balloon to 20 atmospheres. He again presented in 08/2017 with chest discomfort and had an NSTEMI. He was taken to the director of cardiac cath lab by Dr. Rea and the same exact area showed a 99% stenosis. Synergy 3.5-mm stent was placed and postdilated with a non-compliant 4.0-mm balloon. Five days later, he returned with chest discomfort and slight increase in his troponin to 1.16. It was felt this probably is due to occlusion of a side branch and was not due to acute stent thrombosis. He now is contemplating C-spine surgery for arm paresthesias. On 01/27/2018, he underwent Lexiscan Cardiolite test in the office. This revealed fixed proximal to distal inferior wall defect with definite ischemia. Yesterday, approximately at 10:00 a.m., he began to have his usual chest pressure associated with nausea. The discomfort worsened and he came to the emergency room. Total duration of the pain was approximately 12 hours; however, his cardiac enzymes were totally negative. PAST MEDICAL HISTORY: Coronary artery disease, hyperlipidemia, hypertension, cervical disease for possible surgery, and prostate cancer. MEDICATIONS: Allopurinol 300 daily, amlodipine/benazepril 5/20 daily, aspirin 81 daily, Plavix 75 mg daily, Welchol two tablets b.i.d., Repatha every 2 weeks 140 mg, Zetia 10 mg at bedtime, fish oil 1280 mg b.i.d., metoprolol 25 daily, nitroglycerin p.r.n., Prilosec 40 mg b.i.d., rosuvastatin 2.5 mg every other day , Cialis p.r.n. ALLERGIES: PENICILLIN. STATIN causes muscle aches. PAST SURGICAL HISTORY: Umbilical herniorrhaphy, bilateral rotator cuff repair, and prostatectomy for prostate cancer. FAMILY HISTORY: Negative for coronary artery disease. SOCIAL HISTORY: He does not smoke or drink. REVIEW OF SYSTEMS: Twelve-point review of systems is otherwise unremarkable. PHYSICAL EXAMINATION: VITAL SIGNS: Blood pressure 119/67, pulse of 51 (metoprolol has been withheld due to heart rates in the 40s at times). HEENT: PERRL. NECK: Supple. CHEST: Clear. CARDIAC: S1 and S2 are normal without any S3, S4, or murmurs. ABDOMEN: Normal bowel sounds without tenderness, organomegaly. EXTREMITIES: Revealed no clubbing, cyanosis, or edema. NEUROLOGIC: Grossly intact. SKIN: Warm and dry. LABORATORY DATA: EKG revealed normal sinus rhythm and is unremarkable. CBC is normal. Sodium 137, potassium 3.9, chloride 104, carbon dioxide 24, BUN 16, creatinine 0.99. Cardiac enzymes x5 are normal. IMPRESSION: 1. Acute coronary syndrome. He had approximately 12 hours of his usual angina , but without any increase in cardiac enzymes. He also had an abnormal Cardiolite 3 days ago with fixed inferior defect with evidence of ischemia. He certainly may have totally closed his right coronary artery with this prolonged episode of pain. 2. Multiple stent placements. In review of his catheterization films in 2016 and 08/2017, the exact same area re-stenosed and I imagine this area has again re-stenosed. 3. Hypertension. 4. Hyperlipidemia. 5. For cervical surgery in the future. PLAN: Situation was discussed with the patient and his . It was recommended he undergo cardiac catheterization. We did discuss that if this area is totally occluded, then possibly no further intervention would be warranted. If he continues to have 90% lesion with in-stent re-stenosis, then consideration should be given to 1-vessel bypass. Risks of catheterization were discussed including , myocardial infarction, dye reaction, vascular injury, CVA, transfusion, vascular injury, limb loss, renal loss, etc. He will be seen by Dr. Cross when he returns on 02/01/2018. NICK
[2018-01-30] MEDS: Sodium Chloride 0.9% 1,000 ML IV SCH (18:43)
[2018-01-30] MEDS: Ezetimibe 10 MG TAB PO SCH (21:07)
[2018-01-30] MEDS: Rosuvastatin 5 MG TAB PO SCH (21:14)
[2018-01-31 05:41] LABS: #Eosinphils 0.2 thou/uL (0.0-0.7); #Lymphocytes 2.2 thou/uL (1.20-3.40); #Monocytes 0.6 thou/uL (0.11-0.59); #Neutrophils 3.5 thou/uL (1.40-6.50); %Basophils 0.6 % (0.0-1.0); %Eosinophils 2.8 % (0.0-10.0); %Lymphocytes 33.9 % (21.0-51.0); %Monocytes 9.2 % (0.0-10.0); %Neutrophils 53.5 % (42.0-75.0); Hemoglobin 14.1 g/dL (14.0-18.0); Mean Corpuscular HGB CONC 34.3 g/dL (32.0-36.0); Mean Corpuscular Hemoglobin 29.9 pg (27.0-31.0); Mean Corpuscular Volume 87.1 fl (80.0-94.0); Mean Platelet Volume 8.5 fL (7.4-10.4); Platelet Count 194 thou/uL (130-400); RBC Distribution Width 13.1 % (11.5-14.5); Red Blood Cell (RBC) Count 4.71 mill/uL (4.70-6.10); White Blood Cell (WBC) Count 6.4 thou/uL (4.8-10.8)
[2018-01-31] MEDS: Nitroglycerin 2% Ointment 1 INCH/1 GM Packet TOP SCH ×3 (05:50→21:13)
[2018-01-31 05:52] LABS: Anion Gap 11 mmol/L (10-20); BUN (Urea Nitrogen) 20 mg/dL (8.4-25.7); Calc. Creatinine Clearance 94 mL/min (70-130); Calcium 8.9 mg/dL (7.8-10.44); Carbon Dioxide 27 mmol/L (23-31); Chloride 106 mmol/L (98-107); Estimated GFR-MDRD 72; Glucose 99 mg/dL (80-115); Sodium 140 mmol/L (136-145)
[2018-01-31] MEDS: Aspirin 325 MG TAB PO SCH (08:45)
[2018-01-31] MEDS: Amlodipine 5 mg/Benazepril 20 mg CAP PO SCH (08:45)
[2018-01-31] MEDS: Clopidogrel Bisulfate 75 MG TAB PO SCH (08:47)
[2018-01-31] MEDS: Allopurinol 300 MG TAB PO SCH (08:48)
[2018-01-31] MEDS: Famotidine 20 MG TAB PO SCH ×2 (08:48→21:13)
[2018-01-31] MEDS ORDERED: Clopidogrel Bisulfate 75 MG TAB PO SCH (09:00)
[2018-01-31] MEDS ORDERED: Enoxaparin Sodium 40 MG/0.4 ML SYRINGE SC SCH (09:00)
[2018-01-31] MEDS: Sodium Chloride 0.9% 1,000 ML IV SCH ×2 (10:51→14:22)
[2018-01-31] MEDS: Acetaminophen 325 MG TAB PO PRN ×2 (12:13→21:13)
--- NOTE | 2018-01-31 15:24 | PDOC.PN ---
- Subjective Encounter Start Date: 01/31/18 Encounter Start Time: 09:30 Subjective: pt up in bed no complains - Objective Resuscitation Status: Resuscitation Status FULL:Full Resuscitation Vital Signs & Weight: Vital Signs (12 hours) Temp Pulse Resp BP Pulse Ox 01/31/18 12:00 98.1 F 60 18 120/63 96 01/31/18 08:00 97.2 F L 67 18 117/65 98 01/31/18 07:58 97.8 F 64 12 97 Weight Weight 203 lb 3.2 oz I&O: 01/30/18 01/31/18 02/01/18 06:59 06:59 06:59 Intake Total 120 360 Output Total 600 Balance -480 360 Result Diagrams: 01/31/18 04:52 01/31/18 04:52 Phys Exam - Physical Examination HEENT: PERRLA, moist MMs, sclera anicteric, TM's clear, oral pharynx no lesions , 2+ tonsils Neck: no nodes, no JVD, supple, full ROM Respiratory: no wheezing, no rales, no rhonchi, wheezing present, clear to auscultation bilateral Cardiovascular: RRR, no significant murmur, no rub, gallop, irregular Gastrointestinal: soft, non-tender, no distention, positive bowel sounds Dx/Plan (1) Angina pectoris without myocardial infarction Code(s): I20.9 - ANGINA PECTORIS, UNSPECIFIED Status: Acute (2) CAD (coronary artery disease) Code(s): I25.10 - ATHSCL HEART DISEASE OF [place] CORONARY ARTERY W/O ANG PCTRS Status: Acute (3) HTN (hypertension) Code(s): I10 - ESSENTIAL (PRIMARY) HYPERTENSION Status: Acute (4) HLD (hyperlipidemia) Code(s): E78.5 - HYPERLIPIDEMIA, UNSPECIFIED Status: Acute - Plan * . pt will undergo cardiac cath in am. continue home meds will order labs in am Review of Systems - Review of Systems ENT: negative: Ear Pain, Ear Discharge, Nose Pain, Nose Discharge, Nose Congestion, Mouth Pain, Mouth Swelling, Throat Pain, Throat Swelling, Other Respiratory: negative: Cough, Dry, Shortness of Breath, Hemoptysis, SOB with Excertion, Pleuritic Pain, Sputum, Wheezing Cardiovascular: negative: chest pain, palpitations, orthopnea, paroxysmal nocturnal dyspnea, edema, light headedness, other Genitourinary: negative: Dysuria, Frequency, Incontinence, Hematuria, Retention , Other - Medications/Allergies Allergies/Adverse Reactions: Allergies Allergy/AdvReac Type Severity Reaction Status Date / Time Penicillins Allergy Verified 01/29/18 21:44 Ocrsxar-Huf-Bkf Reductase Allergy Verified 01/29/18 21:44 Inhibitor Medications: Current Medications Acetaminophen (Tylenol) 650 mg PO Q4H PRN PRN Reason: Headache/Fever or Pain Last Admin: 01/31/18 12:13 Dose: 650 mg Hydrocodone Bitart/Acetaminophen ([place] 5/325) 1 tab PO Q4H PRN PRN Reason: Moderate Pain (4-6) Allopurinol (Zyloprim) 300 mg PO DAILY [facility] Last Admin: 01/31/18 08:48 Dose: 300 mg Amlodipine/Benazepril HCl (Lotrel 5/20) 1 cap PO DAILY [facility] Last Admin: 01/31/18 08:45 Dose: 1 cap Aspirin (Aspirin) 325 mg PO DAILY [facility] Last Admin: 01/31/18 08:45 Dose: 325 mg Clopidogrel Bisulfate (Plavix) 75 mg PO DAILY [facility] Last Admin: 01/31/18 08:47 Dose: 75 mg Ezetimibe (Zetia) 10 mg PO HS [facility] Last Admin: 01/30/18 21:07 Dose: 10 mg Enoxaparin Sodium (Lovenox) 40 mg SC 0900 [facility] Stop: 01/31/18 21:30 Last Admin: 01/31/18 08:48 Dose: 40 mg Famotidine (Pepcid) 20 mg PO BID [facility] Last Admin: 01/31/18 08:48 Dose: 20 mg Sodium Chloride (Normal Saline 0.9%) 1,000 mls @ 100 mls/hr IV .Q10H [facility] Last Admin: 01/31/18 14:22 Dose: Not Given Metoprolol Succinate (Toprol Xl) 25 mg PO DAILY [facility] Last Admin: 01/31/18 08:48 Dose: 25 mg Miscellaneous Information (Communication Order-Pharmacy) 0 each FS ONE [facility] Stop: 02/01/18 18:01 Nitroglycerin (Nitro-Bid 2% Ointment) 1 inch TOP Q8HR [facility] Last Admin: 01/31/18 14:21 Dose: Not Given Nitroglycerin (Nitrostat) 0.4 mg SL Q5MIN PRN PRN Reason: Chest Pain Ondansetron HCl (Zofran Odt) 4 mg PO Q6H PRN PRN Reason: Nausea/Vomiting Ondansetron HCl (Zofran) 4 mg IVP Q6H PRN PRN Reason: Nausea/Vomiting Pantoprazole Sodium (Protonix) 40 mg PO BID [facility] Last Admin: 01/31/18 08:47 Dose: 40 mg Colesevelam Hcl 1 each PO BID [facility] Rosuvastatin Calcium (Crestor) 2.5 mg PO Q2D [facility] Last Admin: 01/30/18 21:14 Dose: 2.5 mg
[2018-01-31] MEDS: Ezetimibe 10 MG TAB PO SCH (21:13)
[2018-02-01] MEDS: Clopidogrel Bisulfate 75 MG TAB PO SCH (05:46)
[2018-02-01] MEDS: Famotidine 20 MG TAB PO SCH ×3 (05:46→21:07)
[2018-02-01] MEDS: Allopurinol 300 MG TAB PO SCH (05:47)
[2018-02-01] MEDS: Aspirin 325 MG TAB PO SCH (05:47)
[2018-02-01] MEDS: Nitroglycerin 2% Ointment 1 INCH/1 GM Packet TOP SCH ×4 (05:47→21:07)
[2018-02-01] MEDS: Amlodipine 5 mg/Benazepril 20 mg CAP PO SCH (05:48)
[2018-02-01] MEDS: Sodium Chloride 0.9% 1,000 ML IV SCH ×2 (05:49→14:56)
[2018-02-01 06:20] LABS: Anion Gap 12 mmol/L (10-20); BUN (Urea Nitrogen) 17 mg/dL (8.4-25.7); Calc. Creatinine Clearance 106 mL/min (70-130); Calcium 8.9 mg/dL (7.8-10.44); Carbon Dioxide 25 mmol/L (23-31); Chloride 108 mmol/L (98-107); Estimated GFR-MDRD 82; Glucose 102 mg/dL (80-115); Potassium 4.5 mmol/L (3.5-5.1); Sodium 140 mmol/L (136-145)
[2018-02-01] MEDS ORDERED: Lidocaine 1% (PF) 30 ML VIAL ONE (07:34)
[2018-02-01] MEDS ORDERED: Midazolam HCl 2 mg/2 ml Vial ONE (08:05)
[2018-02-01] MEDS ORDERED: Fentanyl 100 MCG/2 ML VIAL ONE (08:06)
[2018-02-01] MEDS ORDERED: Nitroglycerin 100MG/250ML BOT 250 ML ONE (08:29)
[2018-02-01] MEDS ORDERED: Acetaminophen/Codeine 30-300mg Tablet PO PRN ×2 (08:55)
[2018-02-01] MEDS ORDERED: traMADol HCl 50 MG TAB PO PRN (08:55)
[2018-02-01] MEDS ORDERED: Nitroglycerin 0.4 MG TAB (25 Tab Bottle) SL PRN (08:55)
[2018-02-01] MEDS ORDERED: Sodium Chloride 0.9% 200 ML IV SCH (09:00)
[2018-02-01] MEDS ORDERED: Iopamidol 370 76% 50 ML VIAL FS ONE (09:35)
[2018-02-01] MEDS ORDERED: Iopamidol 370 76% 100 ML VIAL ONE (09:35)
--- NOTE | 2018-02-01 10:29 | CCLSPC ---
PROCEDURE NOTE: DATE OF PROCEDURE: 02/01/18 PROCEDURE: Left heart catheterization. INDICATION: Unstable angina. DESCRIPTION OF PROCEDURE: The patient was sedated with intravenous Versed and Fentanyl. The patient was monitored by direct sup ervision by the physician and monitored by nurse with oximetry, blood pressure, and heart rate. A 5 F rench introducer sheath was placed in the femoral artery under ultrasound guidance on the first attem pt. Subsequently, a 5 Swedish sheath was placed. Following that, coronary angiography was done with [facility] [employer] left-4 catheter and a Sunny right-4 catheter. Went back with a Sunny left-4.5 catheter, but it did not cannulate very well. Therefore, went back to the Sunny left-4 catheter and gave intraco ronary nitroglycerin, and took additional angiograms of the left system. Left ventriculogram was done with an angled pigtail. Sheath injection was done at the conclusion of the procedure. There were no complications. The patient tolerated this well. RESULTS: 1. LEFT MAIN: Normal. 2. LAD: 30-40% lesion before and after the first diagonal branch. There do not appear to be any arabella w-limiting lesions. 3. CIRCUMFLEX: Previous stent patent with good flow. 4. RIGHT CORONARY ARTERY: There is a 90% in-stent restenosis in the location where the patient had been stented on three occasions. There is also 30% ostial posterior descending artery stenosis. CONCLUSION: 1. Single vessel disease with in-stent restenosis. 2. Normal ejection fraction. RECOMMENDATION: Coronary artery bypass grafting.
[2018-02-01] MEDS ORDERED: Communication Order-Pharmacy FS ONE (17:50)
--- NOTE | 2018-02-01 18:19 | PDOC.PN ---
- Subjective Encounter Start Date: 02/01/18 Encounter Start Time: 09:00 Subjective: pt up in bed no complains - Objective Resuscitation Status: Resuscitation Status FULL:Full Resuscitation Vital Signs & Weight: Vital Signs (12 hours) Temp Pulse Resp BP Pulse Ox 02/01/18 16:30 97.5 F L 58 L 20 129/69 95 02/01/18 12:30 49 L 20 113/68 98 02/01/18 09:46 97 02/01/18 07:40 96.5 F L 49 L 20 166/79 H 97 Weight Weight 205 lb 8 oz I&O: 01/31/18 02/01/18 02/02/18 06:59 06:59 06:59 Intake Total 360 940 Balance 360 940 Result Diagrams: 01/31/18 04:52 02/01/18 04:51 Phys Exam - Physical Examination HEENT: PERRLA, moist MMs, sclera anicteric, TM's clear, oral pharynx no lesions , 2+ tonsils Neck: no nodes, no JVD, supple, full ROM Respiratory: no wheezing, no rales, no rhonchi, wheezing present, clear to auscultation bilateral Cardiovascular: RRR, no significant murmur, no rub, gallop, irregular Gastrointestinal: soft, non-tender, no distention, positive bowel sounds Dx/Plan (1) Angina pectoris without myocardial infarction Code(s): I20.9 - ANGINA PECTORIS, UNSPECIFIED Status: Acute (2) CAD (coronary artery disease) Code(s): I25.10 - ATHSCL HEART DISEASE OF [place] CORONARY ARTERY W/O ANG PCTRS Status: Acute (3) HTN (hypertension) Code(s): I10 - ESSENTIAL (PRIMARY) HYPERTENSION Status: Acute (4) HLD (hyperlipidemia) Code(s): E78.5 - HYPERLIPIDEMIA, UNSPECIFIED Status: Acute - Plan * pt underwent cardiac cath today. will need bypass. will continue home meds. Review of Systems - Review of Systems ENT: negative: Ear Pain, Ear Discharge, Nose Pain, Nose Discharge, Nose Congestion, Mouth Pain, Mouth Swelling, Throat Pain, Throat Swelling, Other Respiratory: negative: Cough, Dry, Shortness of Breath, Hemoptysis, SOB with Excertion, Pleuritic Pain, Sputum, Wheezing Cardiovascular: negative: chest pain, palpitations, orthopnea, paroxysmal nocturnal dyspnea, edema, light headedness, other Gastrointestinal: negative: Nausea, Vomiting, Abdominal Pain, Diarrhea, Constipation, Melena, Hematochezia, Other - Medications/Allergies Allergies/Adverse Reactions: Allergies Allergy/AdvReac Type Severity Reaction Status Date / Time Penicillins Allergy Verified 01/29/18 21:44 Mfaeicq-Fuh-Ewr Reductase Allergy Verified 01/29/18 21:44 Inhibitor Medications: Current Medications Acetaminophen (Tylenol) 650 mg PO Q4H PRN PRN Reason: Headache/Fever or Pain Stop: 02/02/18 08:59 Last Admin: 01/31/18 21:13 Dose: 650 mg Acetaminophen/Codeine Phosphate (Tylenol #3) 1 tab PO Q4H PRN PRN Reason: Mild Pain (1-3) Stop: 02/02/18 08:59 Acetaminophen/Codeine Phosphate (Tylenol #3) 2 tab PO Q4H PRN PRN Reason: Moderate Pain (4-6) Stop: 02/02/18 08:59 Hydrocodone Bitart/Acetaminophen ([place] 5/325) 1 tab PO Q4H PRN PRN Reason: Moderate Pain (4-6) Stop: 02/02/18 08:59 Allopurinol (Zyloprim) 300 mg PO DAILY [facility] Stop: 02/02/18 08:59 Last Admin: 02/01/18 05:47 Dose: 300 mg Amlodipine/Benazepril HCl (Lotrel 5/20) 1 cap PO DAILY [facility] Stop: 02/02/18 08:59 Last Admin: 02/01/18 05:48 Dose: 1 cap Ezetimibe (Zetia) 10 mg PO HS [facility] Stop: 02/02/18 08:59 Last Admin: 01/31/18 21:13 Dose: 10 mg Famotidine (Pepcid) 20 mg PO BID [facility] Stop: 02/02/18 08:59 Last Admin: 02/01/18 05:46 Dose: 20 mg Sodium Chloride (Normal Saline 0.9%) 1,000 mls @ 50 mls/hr IV .Q20H [facility] Stop: 02/02/18 08:59 Last Admin: 02/01/18 14:56 Dose: 1,000 mls Metoprolol Succinate (Toprol Xl) 25 mg PO DAILY [facility] Stop: 02/02/18 12:00 Last Admin: 02/01/18 05:47 Dose: 25 mg Nitroglycerin (Nitro-Bid 2% Ointment) 1 inch TOP Q8HR [facility] Stop: 02/02/18 08:59 Last Admin: 02/01/18 14:53 Dose: Not Given Nitroglycerin (Nitrostat) 0.4 mg SL Q5MIN PRN PRN Reason: Chest Pain Stop: 02/02/18 08:59 Nitroglycerin (Nitrostat) 0.4 mg SL Q5MIN PRN PRN Reason: Chest Pain Stop: 02/02/18 08:59 Ondansetron HCl (Zofran Odt) 4 mg PO Q6H PRN PRN Reason: Nausea/Vomiting Stop: 02/02/18 08:59 Ondansetron HCl (Zofran) 4 mg IVP Q6H PRN PRN Reason: Nausea/Vomiting Stop: 02/02/18 08:59 Pantoprazole Sodium (Protonix) 40 mg PO BID [facility] Stop: 02/02/18 08:59 Last Admin: 02/01/18 05:47 Dose: 40 mg Rosuvastatin Calcium (Crestor) 2.5 mg PO Q2D [facility] Stop: 02/02/18 08:59 Last Admin: 01/30/18 21:14 Dose: 2.5 mg Sodium Chloride (Flush - Normal Saline) 10 ml IVF Q12HR [facility] Stop: 02/02/18 08:59 Last Admin: 02/01/18 09:37 Dose: Not Given Sodium Chloride (Flush - Normal Saline) 10 ml IVF PRN PRN PRN Reason: Saline Flush Stop: 02/02/18 08:59 Tramadol HCl (Ultram) 50 mg PO Q6H PRN PRN Reason: Moderate Pain (4-6) Stop: 02/02/18 08:59
[2018-02-01] MEDS ORDERED: Zolpidem Tartrate 5 MG TAB PO PRN (20:42)
[2018-02-01] MEDS: Ezetimibe 10 MG TAB PO SCH (21:01)
[2018-02-01] MEDS: Rosuvastatin 5 MG TAB PO SCH (21:01)
--- NOTE | 2018-02-01 23:26 | CON ---
DATE OF CONSULTATION: 02/01/2018 HISTORY OF PRESENT ILLNESS: This is a 62-year-old gentleman with significant cardiac history dating back to several years ago when he had stents placed in his circumflex and right coronary systems. Ri ght coronary artery has had restenosis issues and has had subsequent stenting x2 for recurrent stenos is in the midportion of the right coronary artery stent. Previous stent was placed about 4 months ag o and now is re-stenosed into the 90% range with symptoms. PAST MEDICAL HISTORY: His past medical history includes hypertension and dyslipidemia with a family history of heart disease, although slightly older age group. The patient has been STATIN intolerant essentially for his adult life and was in the Repatha clinical trials and is currently on that drug w ith improvement from his cholesterol according to his account from cholesterol levels of 1100 to abou t 300 now. His cholesterols, however, have been in the range of about 100, so he may be confused as to what levels are control. In any event, his left ventricular systolic function appears to be well preserved. PAST SURGICAL HISTORY: His past surgical history includes prostatectomy several years ago in the [facility] and he has no residual urinary tract symptoms. This was done for cancer. 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 He is and accompanied by his . He is a nonsmoker and has actually never smoked. PHYSICAL EXAMINATION: GENERAL: On examination, he is a very pleasant, alert, cooperative gentleman. VITAL SIGNS: Recorded height is 6 feet 1 inch. Recorded weight of 205 pounds. NECK: No carotid bruits. LUNGS: Clear to auscultation. CARDIAC: Regular rate and rhythm. No murmurs. ABDOMEN: Soft, nontender, no organomegaly, no aneurysm. EXTREMITIES: He has palpable posterior tibial pulses bilaterally with no peripheral edema. HOME MEDICATIONS: Included Plavix 75 a day, aspirin 81 a day, Repatha 140 mg every 2 weeks, Zetia 10 at bedtime, Welchol 1250 mg b.i.d., Crestor 2.5 mg every other day, Toprol-XL 25 a day, amlodipine 1 a day, Prilosec 40 b.i.d. ALLERGIES: PENICILLIN and STATINS. PLAN: At this time, after reviewing cardiac catheterization, it would be a graft to the PDA, possibl y posterolateral due to origin disease at the PDA. The stent appears to closely approximate the take off of the PDA. Informed consent has been obtained.
[2018-02-02] MEDS ORDERED: Clindamycin/D5W 900 MG in Premix Bag 1 BAG IVPB SCH (04:15)
[2018-02-02] MEDS: Nitroglycerin 2% Ointment 1 INCH/1 GM Packet TOP SCH (05:59)
[2018-02-02] MEDS ORDERED: Carboprost 250 MCG/ML AMP ONE (07:04)
[2018-02-02] MEDS ORDERED: Levofloxacin 500 mg/D5W 100 ml Premix Bag ONE (07:44)
[2018-02-02] MEDS ORDERED: Clindamycin/D5W 900 mg/50 ml Premix Bag ONE (07:45)
[2018-02-02] MEDS ORDERED: Midazolam HCl 2 mg/2 ml Vial ONE ×2 (08:19→10:57)
[2018-02-02] MEDS ORDERED: Phenylephrine HCL 10 MG/ML VIAL ONE (09:22)
[2018-02-02] MEDS ORDERED: Fentanyl 100 MCG/2 ML VIAL ONE (09:22)
[2018-02-02] MEDS ORDERED: Vecuronium 10 MG VIAL ONE ×2 (09:22→13:24)
[2018-02-02] MEDS ORDERED: Midazolam HCl 5 mg/5 ml Vial ONE (09:22)
[2018-02-02] MEDS ORDERED: Norepinephrine 8 MG/0.9% NS 0 ML ONE (09:23)
[2018-02-02] MEDS ORDERED: Heparin 10,000 UNITS/1 ML VIAL 30,000 UNITS in Sodium Chloride 0.9% 1,000 ML IVPB ONE (09:45)
[2018-02-02] MEDS ORDERED: Albumin 5% 500 ML ONE (12:27)
--- NOTE | 2018-02-02 13:18 | PDOC.PN ---
- Subjective Encounter Start Date: 02/02/18 Encounter Start Time: 13:23 Patient seen and examined. Admitted for Angina Pectoris. Cath showed significant findings and will be taken for bypass graft today - Objective Resuscitation Status: Resuscitation Status FULL:Full Resuscitation Vital Signs & Weight: Vital Signs (12 hours) Temp Pulse Resp BP Pulse Ox 02/02/18 04:00 98.0 F 49 L 16 136/64 96 Weight Weight 205 lb 12.8 oz I&O: 02/01/18 02/02/18 02/03/18 06:59 06:59 06:59 Intake Total 940 1470 Balance 940 1470 Result Diagrams: 01/31/18 04:52 02/01/18 04:51 Phys Exam - Physical Examination Constitutional: NAD HEENT: moist MMs, sclera anicteric Neck: no JVD, supple, full ROM Respiratory: no wheezing, no rales, no rhonchi, clear to auscultation bilateral Cardiovascular: RRR, no significant murmur, no rub Gastrointestinal: soft, non-tender, no distention, positive bowel sounds Musculoskeletal: no edema, pulses present Neurological: non-focal, moves all 4 limbs Psychiatric: normal affect, A&O x 3 Skin: no rash, normal turgor Dx/Plan (1) CAD (coronary artery disease) Code(s): I25.10 - ATHSCL HEART DISEASE OF [place] CORONARY ARTERY W/O ANG PCTRS Status: Acute Qualifiers: Coronary Disease-Associated Artery/Lesion type: [place] artery [place] vs. transplanted heart: [place] heart Associated angina: with stable angina Qualified Code(s): I25.118 - Atherosclerotic heart disease of [place] coronary artery with other forms of angina pectoris Comment: Had 90% in-stent restenosis in RCA. Scheduled for bypass graft 2017 (2) Angina pectoris without myocardial infarction Code(s): I20.9 - ANGINA PECTORIS, UNSPECIFIED Status: Acute Comment: Had 90 % in-stent restenosis in RCA. Scheduled for bypass graft 02/02/2018 (3) HLD (hyperlipidemia) Code(s): E78.5 - HYPERLIPIDEMIA, UNSPECIFIED Status: Chronic Qualifiers: Hyperlipidemia type: unspecified Qualified Code(s): E78.5 - Hyperlipidemia , unspecified (4) HTN (hypertension) Code(s): I10 - ESSENTIAL (PRIMARY) HYPERTENSION Status: Chronic Qualifiers: Hypertension type: essential hypertension Qualified Code(s): I10 - Essential (primary) hypertension - Plan cont current plan of care f/u cardiology recs after bypass graft. Review of Systems - Medications/Allergies Allergies/Adverse Reactions: Allergies Allergy/AdvReac Type Severity Reaction Status Date / Time Penicillins Allergy Verified 01/29/18 21:44 Okazqae-Lqv-Gpl Reductase Allergy Verified 01/29/18 21:44 Inhibitor Medications: Current Medications Clindamycin Phosphate/Dextrose (900 mg/ Device) 50 mls @ 100 mls/hr IVPB ONCALL -OR [facility] Stop: 02/02/18 19:00 Levofloxacin 500 mg/ Device 100 mls @ 100 mls/hr IVPB ONCALL-OR [facility]UCK Stop: 02/02/18 19:00 Zolpidem Tartrate (Ambien) 5 mg PO HSPRN PRN PRN Reason: Insomnia Last Admin: 02/01/18 21:03 Dose: 5 mg
[2018-02-02] MEDS ORDERED: Heparin 5,000 UNITS/ML VIAL ONE (13:24)
[2018-02-02] MEDS ORDERED: Protamine Sulfate 250 MG/25 ML VIAL ONE (13:24)
[2018-02-02] MEDS ORDERED: Thrombin 5000 UNITS/5 ML VIAL ONE (13:24)
[2018-02-02] MEDS ORDERED: Sodium Bicarb 50 MEQ/50 ML VIAL ONE (13:24)
[2018-02-02] MEDS ORDERED: ePHEDrine/0.9% NaCl/PF SYRINGE 50 mg/10 ml ONE (13:24)
[2018-02-02] MEDS ORDERED: Calcium Chloride 1 GM/10 ML Abboject SYRINGE ONE (13:24)
[2018-02-02] MEDS ORDERED: Lidocaine 2% PF 100 mg/5 ml Syringe ONE (13:24)
[2018-02-02] MEDS ORDERED: Heparin 30,000 units/30 ml VIAL ONE (13:24)
[2018-02-02] MEDS ORDERED: PROPOFOL 200 MG/20 ML VIAL ONE (13:24)
[2018-02-02] MEDS ORDERED: Papaverine 60 MG/2 ML VIAL ONE (13:24)
[2018-02-02] MEDS ORDERED: Cardioplegic Soln 1,000 ML BAG ONE (13:24)
[2018-02-02] MEDS ORDERED: Glycopyrrolate 0.2 MG/ML 5 ML SYRINGE ONE (13:24)
[2018-02-02] MEDS ORDERED: Mannitol 12.5 GM/50 ML ONE (13:24)
[2018-02-02] MEDS ORDERED: Potassium Chlo 10 mEq/5 ml Syr ONE (13:24)
[2018-02-02] MEDS ORDERED: Magnesium 5 GM/10 ML VIAL ONE (13:24)
[2018-02-02] MEDS ORDERED: PHENYLEPHRINE-NS 100 MCG/ML 10 ML SYRINGE ONE (13:24)
[2018-02-02] MEDS ORDERED: Fentanyl 100 MCG/2 ML VIAL SLOW IVP PRN (15:37)
[2018-02-02] MEDS ORDERED: Mag-Al 1200 mg/1200 mg/30 ML UDCUP PO PRN (15:37)
[2018-02-02] MEDS ORDERED: Guaifenesin DM 100-10/5 ML UDCUP PO PRN (15:37)
[2018-02-02] MEDS ORDERED: DOPamine 400 MG/D5W 250 ML 250 ML IVPB PRN (15:37)
[2018-02-02] MEDS ORDERED: hydrALAZINE 20 MG/ML VIAL SLOW IVP PRN (15:37)
[2018-02-02] MEDS ORDERED: Nitroglycerin 50 MG/250 ML BOT 250 ML IVPB PRN (15:37)
[2018-02-02] MEDS ORDERED: Acetaminophen 325 MG TAB PO PRN (15:37)
[2018-02-02] MEDS ORDERED: Potassium Chloride 20 MEQ/100 ML PREMIX BAG IVPB PRN (15:37)
[2018-02-02] MEDS ORDERED: Hetastarch 6% 500 ML 500 ML IVPB PRN (15:37)
[2018-02-02] MEDS ORDERED: Bisacodyl 5 MG TAB PO PRN (15:37)
[2018-02-02] MEDS ORDERED: Promethazine HCl 25 MG/ML VIAL IM PRN (15:37)
[2018-02-02] MEDS ORDERED: HYDROcodone/Acetaminophen 5/325 mg Tablet PO PRN (15:37)
[2018-02-02] MEDS ORDERED: Post-Op Insulin Drip Protocol IVPB ONE (15:37)
[2018-02-02] MEDS ORDERED: Bisacodyl 10 MG SUPP PR PRN (15:37)
[2018-02-02] MEDS ORDERED: Dextrose 50% Abboject 50 ML SYRINGE SLOW IVP PRN (15:55)
[2018-02-02] MEDS ORDERED: Dextrose 5% in Water 1,000 ML IV PRN (15:55)
[2018-02-02 15:58] LABS: #Basophils 0.1 thou/uL (0.0-0.2); #Eosinphils 0.2 thou/uL (0.0-0.7); #Lymphocytes 2.2 thou/uL (1.20-3.40); #Monocytes 0.6 thou/uL (0.11-0.59); #Neutrophils 8.1 thou/uL (1.40-6.50); %Basophils 0.5 % (0.0-1.0); %Eosinophils 1.6 % (0.0-10.0); %Lymphocytes 19.9 % (21.0-51.0); %Monocytes 5.7 % (0.0-10.0); %Neutrophils 72.4 % (42.0-75.0); Hemoglobin 11.1 g/dL (14.0-18.0); Mean Corpuscular HGB CONC 34.3 g/dL (32.0-36.0); Mean Corpuscular Hemoglobin 29.6 pg (27.0-31.0); Mean Corpuscular Volume 86.3 fl (80.0-94.0); Mean Platelet Volume 7.9 fL (7.4-10.4); Platelet Count 145 thou/uL (130-400); RBC Distribution Width 12.9 % (11.5-14.5); Red Blood Cell (RBC) Count 3.76 mill/uL (4.70-6.10); White Blood Cell (WBC) Count 11.3 thou/uL (4.8-10.8)
[2018-02-02 15:59] LABS: Actual Bicarbonate (HCO3a) 22.9 mEq/L (22-28); Base Excess (BEa) -2.7 mEq/L (-2.0 to +3.0); pH, Arterial 7.35 (7.35-7.45)
[2018-02-02 16:00] LABS: Hemoglobin (Hb) 11.8 g/dL (14.0-18.0)
[2018-02-02 16:01] LABS: Calcium, Ionized 1.2 mmol/L (1.12-1.30)
[2018-02-02 16:02] LABS: Puncture Site A-LINE
[2018-02-02 16:03] LABS: INR-International Normal Ratio 1.3; PTT 31.3 SEC (22.9-36.1); Prothrombin Time 16.5 SEC (12.0-14.7)
[2018-02-02 16:15] LABS: Anion Gap 9 mmol/L (10-20); BUN (Urea Nitrogen) 9 mg/dL (8.4-25.7); Calc. Creatinine Clearance 133 mL/min (70-130); Calcium 8.1 mg/dL (7.8-10.44); Carbon Dioxide 23 mmol/L (23-31); Chloride 113 mmol/L (98-107); Estimated GFR-MDRD Greater than 90; Glucose 94 mg/dL (80-115); Potassium 3.8 mmol/L (3.5-5.1); Sodium 141 mmol/L (136-145)
[2018-02-02] MEDS: Ondansetron HCl/PF 4 MG/2 ML Vial IVP PRN (16:31)
[2018-02-02] MEDS: Clindamycin/D5W 900 MG in Premix Bag 1 BAG IVPB SCH ×2 (16:32→21:37)
--- NOTE | 2018-02-02 16:37 | RAD ---
PORTABLE CHEST ONE VIEW: Date: 02-02-18 Time: 3:33 p.m. History: Post op open heart surgery. FINDINGS/IMPRESSION: Comparison made with exam of 10-29-17. There are interval changes of median sternotomy seen. There is an endotracheal tube with tip at the level of the clavicular heads. There is right subclavian central line with tip in the direction of th e SVC. Mediastinal drain and left sided chest tubes have been placed. No pneumothoraces or large effu sions are seen. There is no evidence of treva pleural edema. The heart size is enlarged. POS: [facility]
[2018-02-02] MEDS: Ketorolac Tromethamine 30 MG/ML VIAL IVP SCH (17:09)
[2018-02-02] MEDS: Lactated Ringer's 1,000 ML IV SCH (18:06)
[2018-02-02] MEDS: Fentanyl 100 MCG/2 ML VIAL SLOW IVP PRN ×2 (19:38→22:00)
[2018-02-02 20:29] LABS: Hemoglobin 12.3 g/dL (14.0-18.0)
[2018-02-02] MEDS: Insulin Regular 300 UNITS/3 ML VIAL SC PRN (20:50)
[2018-02-02 20:54] LABS: Potassium 4.7 mmol/L (3.5-5.1)
[2018-02-02 21:20] LABS: pH, Arterial 7.31 (7.35-7.45)
[2018-02-02 21:21] LABS: Actual Bicarbonate (HCO3a) 20.5 mEq/L (22-28); Base Excess (BEa) -5.4 mEq/L (-2.0 to +3.0); CO2 Tension 41.6 mmHg (35.0-45.0); Hemoglobin (Hb) 12.6 g/dL (14.0-18.0); O2 Tension (PaO2) 130.2 mmHg (> 80.0)
[2018-02-02 21:22] LABS: Calcium, Ionized 1.2 mmol/L (1.12-1.30)
[2018-02-02 21:23] LABS: Puncture Site ALINE
[2018-02-02] MEDS: Famotidine/PF 20 mg/2ml Vial SLOW IVP SCH (21:37)
[2018-02-02 21:40] LABS: Actual Bicarbonate (HCO3a) 20.5 mEq/L (22-28); Base Excess (BEa) -2.1 mEq/L (-2.0 to +3.0); CO2 Tension 28.8 mmHg (35.0-45.0); Hemoglobin (Hb) 12.3 g/dL (14.0-18.0); O2 Tension (PaO2) 131.7 mmHg (> 80.0); pH, Arterial 7.47 (7.35-7.45)
--- NOTE | 2018-02-02 21:40 | OP ---
PREOPERATIVE DIAGNOSIS: Coronary artery disease. PROCEDURES: Coronary bypass graft x3, left internal mammary artery good quality 2.5-3 mm LAD, saphen ous vein somewhat small to a 2 mm PDA and 1.25-mm posterolateral. SURGEON: Edy Aguilar M.D. ROUTE DELIVERY CLERK: Dr. Quevedo. PROCEDURE IN DETAIL: After adequate anesthesia had been obtained, the patient was prepped and draped . Dr. Quevedo did initially an endovascular vein harvest of the left greater saphenous vein conv erted to an open harvest while I performed a median sternotomy. After opening the sternum, the left internal mammary artery was harvested entering the left pleura. Patient was heparinized, the mammary divided distally, passed posterior to the thymus through a hole in the pericardium and treated with intraluminal papaverine. Nice quality was cannulated as with right atrium and cardiopulmonary bypass was instituted. Vessels were inspected for grafting. The posterolateral just after the takeoff the PDA was fairly diseased and the distal right coronary artery was heavily diseased and quite hard to palpation. Following aortic cross clamping, a liter of cold blood cardioplegia was given following veronica reveles, three distal anastomoses were completed. Following this, cross-clamp was removed, partial occl uding clamp placed, and the PDA vein graft anastomosed to the aortic root. Partial occluding clamp r emoved and that vein graft marked with a ring. Following this, the posterior lateral vein graft was then anastomosed to the side of the PDA vein graft to about the mid right atrial level. Patient was then weaned from cardiopulmonary bypass, cannulas removed, and aortic cannulation site secured with a Prolene. After obtaining good hemostasis, mediastinal and left pleural drains were placed, followin g which the sternum was reapproximated with #7 interrupted wire using vancomycin paste on the sternal edges, platelet-enriched blood, and platelet-poor plasma. Subcutaneous tissue and skin were closed in layers.
[2018-02-02 21:41] LABS: Calcium, Ionized 1.1 mmol/L (1.12-1.30); Puncture Site ALINE
[2018-02-03] MEDS: Ketorolac Tromethamine 30 MG/ML VIAL IVP SCH ×4 (00:08→19:36)
[2018-02-03] MEDS: Fentanyl 100 MCG/2 ML VIAL SLOW IVP PRN ×5 (00:09→09:43)
[2018-02-03] MEDS: Clindamycin/D5W 900 MG in Premix Bag 1 BAG IVPB SCH ×2 (04:06→09:39)
[2018-02-03] MEDS: Insulin Regular 300 UNITS/3 ML VIAL SC PRN (04:19)
[2018-02-03 04:41] LABS: #Lymphocytes 0.9 thou/uL (1.20-3.40); #Monocytes 0.9 thou/uL (0.11-0.59); #Neutrophils 7.2 thou/uL (1.40-6.50); %Eosinophils 0.1 % (0.0-10.0); %Lymphocytes 10.1 % (21.0-51.0); %Monocytes 9.8 % (0.0-10.0); Hemoglobin 10.3 g/dL (14.0-18.0); Mean Corpuscular HGB CONC 34.6 g/dL (32.0-36.0); Mean Corpuscular Hemoglobin 30.2 pg (27.0-31.0); Mean Corpuscular Volume 87.3 fL (78.0-98.0); Mean Platelet Volume 8.7 fL (7.4-10.4); Platelet Count 148 thou/uL (130-400); Red Blood Cell (RBC) Count 3.41 mill/uL (4.70-6.10)
[2018-02-03] MEDS: Lactated Ringer's 1,000 ML IV SCH (05:45)
[2018-02-03 07:40] VITALS: BMI 27.8
[2018-02-03] MEDS ORDERED: Aspirin 325 MG TAB PO SCH (09:00)
--- NOTE | 2018-02-03 09:19 | RAD ---
SINGLE VIEW OF THE CHEST: Comparison: 02-02-18 History: Status post open heart surgery. FINDINGS: Single view of the chest shows a cardiomediastinal silhouette which is enlarged but stable in size. E ndotracheal tube has been removed. The patient is status post sternotomy. The mediastinal drain and l eft chest tube are unchanged in position. The central venous catheter is unchanged in position. There may be a small left pleural effusion. IMPRESSION: Stable exam status post extubation. POS: [facility]
[2018-02-03] MEDS ORDERED: Famotidine 20 MG TAB PO SCH (10:30)
[2018-02-03] MEDS: Famotidine 20 MG TAB PO SCH ×2 (11:00→19:35)
--- NOTE | 2018-02-03 12:14 | PDOC.PN ---
- Subjective Encounter Start Date: 02/03/18 Encounter Start Time: 12:13 patient seen and examined. He was admitted for angina pectoris, had abnormal findings on cardiac catheterization and is s/p CABG x 3, done on 02/02/2018. Doing well post op. No complaints. - Objective Resuscitation Status: Resuscitation Status FULL:Full Resuscitation MAR Reviewed: Yes Vital Signs & Weight: Weight Weight 211 lb 6.773 oz Most Recent Monitor Data Heart Rate from ECG 60 NIBP 97/56 NIBP BP-Mean 60 Respiration from ECG 13 SpO2 95 I&O: 02/02/18 02/03/18 02/04/18 06:59 06:59 06:59 Intake Total 1470 2006 Output Total 2450 Balance 1470 -444 Result Diagrams: 02/03/18 04:00 02/02/18 20:24 Additional Labs: Accuchecks 02/03/18 02/03/18 02/03/18 10:07 04:20 00:04 POC Glucose 137 H 145 H 116 H 02/02/18 02/02/18 02/02/18 19:56 15:46 14:50 POC Glucose 147 H 94 100 02/02/18 02/02/18 02/02/18 14:28 13:57 13:25 POC Glucose 99 105 104 Phys Exam - Physical Examination Constitutional: NAD HEENT: moist MMs, sclera anicteric Neck: supple, full ROM Respiratory: no wheezing, no rales, no rhonchi, clear to auscultation bilateral Cardiovascular: RRR, no significant murmur, no rub Gastrointestinal: soft, non-tender, no distention, positive bowel sounds Musculoskeletal: no edema, pulses present Neurological: non-focal, moves all 4 limbs Psychiatric: normal affect, A&O x 3 Skin: no rash, normal turgor Dx/Plan (1) CAD (coronary artery disease) Code(s): I25.10 - ATHSCL HEART DISEASE OF [place] CORONARY ARTERY W/O ANG PCTRS Status: Acute Qualifiers: Coronary Disease-Associated Artery/Lesion type: [place] artery [place] vs. transplanted heart: [place] heart Associated angina: with stable angina Qualified Code(s): I25.118 - Atherosclerotic heart disease of [place] coronary artery with other forms of angina pectoris Comment: Stable. Had 90% in-stent restenosis in RCA. S/p CABG 02/02/2018. (2) Angina pectoris without myocardial infarction Code(s): I20.9 - ANGINA PECTORIS, UNSPECIFIED Status: Acute Plan: As above. chest pain free. (3) HLD (hyperlipidemia) Code(s): E78.5 - HYPERLIPIDEMIA, UNSPECIFIED Status: Chronic Qualifiers: Hyperlipidemia type: unspecified Qualified Code(s): E78.5 - Hyperlipidemia , unspecified (4) HTN (hypertension) Code(s): I10 - ESSENTIAL (PRIMARY) HYPERTENSION Status: Chronic Qualifiers: Hypertension type: essential hypertension Qualified Code(s): I10 - Essential (primary) hypertension - Plan cont current plan of care, plan discussed w/ family, PT/OT, out of bed/ambulate * . Review of Systems - Medications/Allergies Allergies/Adverse Reactions: Allergies Allergy/AdvReac Type Severity Reaction Status Date / Time Penicillins Allergy Verified 01/29/18 21:44 Wdkwrly-Vsk-Kwc Reductase Allergy Verified 01/29/18 21:44 Inhibitor Medications: Current Medications Acetaminophen (Tylenol) 650 mg PO Q6H PRN PRN Reason: Headache/Fever Or Mild Pain Last Admin: 02/03/18 04:08 Dose: 650 mg Hydrocodone Bitart/Acetaminophen ([place] 5/325) 1 tab PO Q4H PRN PRN Reason: Moderate Pain (4-6) Hydrocodone Bitart/Acetaminophen ([place] 5/325) 2 tab PO Q4H PRN PRN Reason: Severe Pain (7-10) Al Hydroxide/Mg Hydroxide (Maalox) 30 ml PO Q4H PRN PRN Reason: Indigestion Albumin Human (Albumin 5%) 12.5 gm IVPB Q6H PRN PRN Reason: To Maintain SBP> 90 mmHG Stop: 02/03/18 15:38 Albumin Human (Albumin 5%) 25 gm IVPB Q6H PRN PRN Reason: To Maintain SBP > 90 mmHG Stop: 02/03/18 15:38 Last Admin: 02/03/18 05:34 Dose: 25 gm Albuterol/Ipratropium (Duoneb) 3 ml NEB [id number] PRN PRN Reason: SHORTNESS OF BREATH Aspirin (Aspirin) 325 mg PO DAILY [facility] Last Admin: 02/03/18 09:39 Dose: 325 mg Bisacodyl (Dulcolax) 10 mg PO Q12H PRN PRN Reason: Constipation Bisacodyl (Dulcolax) 10 mg ND Q12H PRN PRN Reason: Constipation Famotidine (Pepcid) 20 mg PO BID [facility] Fentanyl (Sublimaze) 25 mcg SLOW IVP Q2H PRN PRN Reason: Moderate Pain (4-6) Stop: 02/04/18 15:11 Last Admin: 02/03/18 09:43 Dose: 25 mcg Fentanyl (Sublimaze) 50 mcg SLOW IVP Q2H PRN PRN Reason: Severe Pain (7-10) Stop: 02/04/18 15:11 Guaifenesin/Dextromethorphan (Robitussin Dm) 15 ml PO Q4H PRN PRN Reason: Cough Hydralazine HCl (Apresoline) 10 mg SLOW IVP Q6H PRN PRN Reason: To Maintain SBP< 140mmHG Dopamine HCl/Dextrose (Dopamine/D5w) 250 mls @ 0 mls/hr IVPB PRN PRN; Protocol ; Titrate PRN Reason: To maintain SBP > 90 mmHG Hetastarch/Sodium Chloride (Hespan) 500 mls @ 0 mls/hr IVPB PRN PRN; As Directed PRN Reason: To Maintain SBP > 90mmHg Stop: 02/03/18 15:11 Nitroglycerin/Dextrose (Nitroglycerin 50 Mg/250 Ml Bot) 250 mls @ 0 mls/hr IVPB PRN PRN; Protocol; Titrate PRN Reason: To Maintain SBP< 140mmHG Lactated Ringer's (Lactated Ringer's) 1,000 mls @ 75 mls/hr IV .[id number] [facility] Last Admin: 02/03/18 05:45 Dose: 1,000 mls Ketorolac Tromethamine (Toradol) 15 mg IVP Q6HR [facility] Stop: 02/05/18 18:01 Last Admin: 02/03/18 05:37 Dose: 15 mg Morphine Sulfate (Morphine Sulfate) 2 mg SLOW IVP Q15MIN PRN PRN Reason: Severe Pain (7-10) Ondansetron HCl (Zofran) 4 mg IVP Q6H PRN PRN Reason: Nausea/Vomiting Last Admin: 02/02/18 16:31 Dose: 4 mg Potassium Chloride (Kcl) 20 meq IVPB PRN PRN PRN Reason: K level </= 4.0 Last Admin: 02/02/18 16:44 Dose: 20 meq Promethazine HCl (Phenergan) 6.25 mg IM Q4H PRN PRN Reason: Nausea/Vomiting
[2018-02-03] MEDS: Ondansetron HCl/PF 4 MG/2 ML Vial IVP PRN (19:40)
[2018-02-03] MEDS: Famotidine/PF 20 mg/2ml Vial SLOW IVP SCH (20:31)
[2018-02-03] MEDS: Amiodarone HCl 450 MG, Admixture Fee 1 EACH in Dextrose 5% in Water 250 ML IVPB SCH (21:29)
[2018-02-03] MEDS: HYDROcodone/Acetaminophen 5/325 mg Tablet PO PRN (22:31)
[2018-02-04] MEDS: Ketorolac Tromethamine 30 MG/ML VIAL IVP SCH ×2 (00:12→06:12)
[2018-02-04] MEDS: Lactated Ringer's 1,000 ML IV SCH ×2 (00:21→08:05)
[2018-02-04] MEDS: HYDROcodone/Acetaminophen 5/325 mg Tablet PO PRN (03:15)
[2018-02-04] MEDS: Amiodarone HCl 450 MG, Admixture Fee 1 EACH in Dextrose 5% in Water 250 ML IVPB SCH (03:16)
[2018-02-04 04:32] LABS: #Eosinphils 0.1 thou/uL (0.0-0.7); #Lymphocytes 1.5 thou/uL (1.20-3.40); %Basophils 0.2 % (0.0-1.0); %Eosinophils 1.5 % (0.0-10.0); %Lymphocytes 19.7 % (21.0-51.0); %Monocytes 13.3 % (0.0-10.0); %Neutrophils 65.4 % (42.0-75.0); Hemoglobin 9.1 g/dL (14.0-18.0); Mean Corpuscular HGB CONC 34.6 g/dL (32.0-36.0); Mean Corpuscular Volume 86.6 fL (78.0-98.0); Mean Platelet Volume 8.1 fL (7.4-10.4); Platelet Count 137 thou/uL (130-400); RBC Distribution Width 12.9 % (11.5-14.5); Red Blood Cell (RBC) Count 3.03 mill/uL (4.70-6.10); White Blood Cell (WBC) Count 7.7 thou/uL (4.8-10.8)
[2018-02-04 04:51] LABS: Anion Gap 9 mmol/L (10-20); BUN (Urea Nitrogen) 10 mg/dL (8.4-25.7); Calc. Creatinine Clearance 127 mL/min (70-130); Calcium 8.3 mg/dL (7.8-10.44); Carbon Dioxide 27 mmol/L (23-31); Chloride 107 mmol/L (98-107); Estimated GFR-MDRD Greater than 90; Glucose 120 mg/dL (80-115); Potassium 3.8 mmol/L (3.5-5.1); Sodium 139 mmol/L (136-145)
[2018-02-04] MEDS ORDERED: Aspirin 81 mg Enteric Coated Tablet PO SCH (06:35)
[2018-02-04] MEDS: Famotidine 20 MG TAB PO SCH ×2 (08:05→20:19)
[2018-02-04] MEDS: Clopidogrel Bisulfate 75 MG TAB PO SCH (08:05)
--- NOTE | 2018-02-04 08:28 | PRG ---
DATE OF SERVICE: 02/04/2018 SUBJECTIVE: Mr. Dorado is doing better. He did go into atrial fibrillation with a rapid rate last ni ght, the rate was 140 now, the rate is in the 110s in the chair. OBJECTIVE: VITAL SIGNS: Blood pressure 110/70. LUNGS: Clear. CARDIAC: Irregularly irregular. ABDOMEN: Soft, nontender. EXTREMITIES: No edema. ASSESSMENT: 1. Post-bypass surgery. 2. Postoperative atrial fibrillation. PLAN: 1. He is on intravenous amiodarone. 2. Add metoprolol. 3. Proceed with cardiac rehabilitation.
[2018-02-04] MEDS ORDERED: HYDROcodone/Acetaminophen 5/325 mg Tablet PO PRN ×2 (09:12)
[2018-02-04] MEDS ORDERED: Nitroglycerin 0.4 MG TAB (25 Tab Bottle) SL PRN (09:12)
[2018-02-04] MEDS ORDERED: Mag-Al 1200 mg/1200 mg/30 ML UDCUP PO PRN (09:12)
[2018-02-04] MEDS ORDERED: Mineral Oil ENEMA PR PRN (09:12)
[2018-02-04] MEDS ORDERED: Milk Of Magnesia 30 ML UDCUP PO PRN (09:12)
[2018-02-04] MEDS ORDERED: Fentanyl 100 MCG/2 ML VIAL SLOW IVP PRN (09:12)
[2018-02-04] MEDS ORDERED: Zolpidem Tartrate 5 MG TAB PO PRN (09:12)
[2018-02-04] MEDS ORDERED: Bisacodyl 5 MG TAB PO PRN (09:12)
[2018-02-04] MEDS ORDERED: Acetaminophen 325 MG TAB PO PRN (09:12)
[2018-02-04] MEDS ORDERED: Bisacodyl 10 MG SUPP PR PRN (09:12)
[2018-02-04] MEDS ORDERED: Guaifenesin DM 100-10/5 ML UDCUP PO PRN (09:12)
--- NOTE | 2018-02-04 09:56 | RAD ---
PORTABLE CHEST 1 VIEW: Date: 02/04/18 Time: 0459 hours HISTORY: Post open heart surgery. FINDINGS/IMPRESSION: Comparison made with exam of previous day. No significant interval changes are seen. POS: [facility]
[2018-02-04] MEDS ORDERED: Famotidine 20 MG TAB PO SCH (10:00)
[2018-02-04] MEDS ORDERED: Enoxaparin Sodium 40 MG/0.4 ML SYRINGE SC SCH (10:00)
[2018-02-04] MEDS ORDERED: Potassium Chloride 10 MEQ TAB PO SCH (10:00)
[2018-02-04] MEDS ORDERED: Furosemide 40 MG TAB PO SCH (10:00)
[2018-02-04] MEDS ORDERED: Aspirin 325 mg Enteric Coated Tablet PO SCH (10:00)
--- NOTE | 2018-02-04 12:47 | PDOC.PN ---
- Subjective Encounter Start Date: 02/04/18 Encounter Start Time: 12:43 Mr. Dorado was seen today in follow-up. He does not have any complaints today except that he was a bit fatigued after walking with Cardiac Rehab. - Objective Resuscitation Status: Resuscitation Status FULL:Full Resuscitation MAR Reviewed: Yes Vital Signs & Weight: Vital Signs (12 hours) Temp Pulse Resp BP Pulse Ox 02/04/18 09:08 97.7 F 129 H 18 126/73 99 02/04/18 08:00 97.7 F 02/04/18 07:49 97.7 F 109 H 17 94 L 02/04/18 04:00 98.6 F Weight Weight 216 lb 11.43 oz Most Recent Monitor Data Heart Rate from ECG 104 NIBP 110/72 NIBP BP-Mean 92 Respiration from ECG 17 SpO2 94 I&O: 02/03/18 02/04/18 02/05/18 06:59 06:59 06:59 Intake Total 20056 Output Total 2450 1872 0 Balance -444 -6 0 Result Diagrams: 02/04/18 04:20 02/04/18 04:20 Additional Labs: Accuchecks 02/03/18 18:24 POC Glucose 138 H Phys Exam - Physical Examination HEENT: PERRLA Respiratory: no wheezing, no rales, no rhonchi, clear to auscultation bilateral Cardiovascular: RRR, no significant murmur Gastrointestinal: soft, non-tender, positive bowel sounds Musculoskeletal: no edema Dx/Plan (1) CAD (coronary artery disease) Code(s): I25.10 - ATHSCL HEART DISEASE OF [place] CORONARY ARTERY W/O ANG PCTRS Status: Acute Qualifiers: Coronary Disease-Associated Artery/Lesion type: [place] artery [place] vs. transplanted heart: [place] heart Associated angina: with stable angina Qualified Code(s): I25.118 - Atherosclerotic heart disease of [place] coronary artery with other forms of angina pectoris Comment: Stable. Had 90% in-stent restenosis in RCA. S/p CABG 02/02/2018. (2) HLD (hyperlipidemia) Code(s): E78.5 - HYPERLIPIDEMIA, UNSPECIFIED Status: Chronic Qualifiers: Hyperlipidemia type: unspecified Qualified Code(s): E78.5 - Hyperlipidemia , unspecified (3) HTN (hypertension) Code(s): I10 - ESSENTIAL (PRIMARY) HYPERTENSION Status: Chronic Qualifiers: Hypertension type: essential hypertension Qualified Code(s): I10 - Essential (primary) hypertension (4) Atrial fibrillation Code(s): I48.91 - UNSPECIFIED ATRIAL FIBRILLATION Status: Acute - Plan * CAD s/p CABG-3vessels- he is clinically stable * AFIB- he is now on Amiodarone, and Metoprolol- will continue to monitor heart rate * Dyslipidemia- can re-start his home medications * HTN- blood pressure is stable.
[2018-02-04] MEDS: Rosuvastatin 5 MG TAB PO SCH (13:46)
[2018-02-04] MEDS: Promethazine 25 MG TAB PO PRN (13:48)
[2018-02-04] MEDS: WELCHOL 625 MG PO SCH (20:19)
[2018-02-05] MEDS: Amiodarone HCl 450 MG, Admixture Fee 1 EACH in Dextrose 5% in Water 250 ML IVPB SCH (00:02)
[2018-02-05] MEDS: Potassium Chloride 10 MEQ TAB PO SCH (08:52)
[2018-02-05] MEDS: Amiodarone 200 MG TAB PO SCH ×3 (08:52→20:38)
[2018-02-05] MEDS: Famotidine 20 MG TAB PO SCH ×2 (08:53→20:38)
[2018-02-05] MEDS: Clopidogrel Bisulfate 75 MG TAB PO SCH (08:53)
[2018-02-05] MEDS: WELCHOL 625 MG PO SCH ×2 (08:54→20:39)
[2018-02-05] MEDS: Furosemide 40 MG TAB PO SCH (08:54)
[2018-02-05] MEDS: Enoxaparin Sodium 40 MG/0.4 ML SYRINGE SC SCH (08:54)
[2018-02-05] MEDS ORDERED: Aspirin 325 mg Enteric Coated Tablet PO SCH (09:00)
[2018-02-05] MEDS: Aspirin 81 mg Enteric Coated Tablet PO SCH (09:02)
--- NOTE | 2018-02-05 12:41 | PRG ---
DATE OF SERVICE: 02/05/2018 SUBJECTIVE: The patient is seen and examined at the bedside. He just finished his PT. He does not have much complaints to offer. He feels good. He does not have any discomfort except for the chest pain from the surgery incision. PHYSICAL EXAMINATION: VITAL SIGNS: Blood pressure is 127/78, pulse is 78, respiratory rate is 18, O2 saturation is 94% on room air. HEENT: His head is atraumatic, normocephalic. Eyes: PERRLA. Conjunctivae pink. Oral mucosa is mo ist. NECK: Supple, no lymphadenopathy. Thyroid is not palpable. CHEST: In the midline incision looks good. LUNGS: Breath sounds slightly diminished at both bases with occasional crackles bilaterally and no w heezing. HEART: S1 and S2 normal, no S3, no S4, no murmur. ABDOMEN: Soft, nontender, nondistended. EXTREMITIES: No clubbing, cyanosis, or edema. On the left leg, incisions of the vein graft sources look good. NEUROLOGICAL EXAMINATION: He is alert and oriented x4. There is not any sensorimotor deficits prese nt. Cranial nerves are intact. LABORATORY DATA: None. IMPRESSION: 1. Coronary artery disease. 2. Hypertension. 3. Atrial fibrillation. 4. Hyperlipidemia. 5. Status post coronary artery bypass grafting, 3 vessels. PLAN: Continue current regimen, on amiodarone and metoprolol. I will continue a statin, which is Cr estor. Continue Welchol. Pain management p.r.n. as needed. Continue DVT prophylactic dose of enoxa hans and clopidogrel 75 mg once a day along with aspirin.
[2018-02-05] MEDS: Promethazine 25 MG TAB PO PRN (19:22)
[2018-02-06] MEDS: Promethazine 25 MG TAB PO PRN (07:07)
[2018-02-06] MEDS: Aspirin 81 mg Enteric Coated Tablet PO SCH (08:06)
[2018-02-06] MEDS: Famotidine 20 MG TAB PO SCH (08:06)
[2018-02-06] MEDS: Potassium Chloride 10 MEQ TAB PO SCH (08:06)
[2018-02-06] MEDS: Furosemide 40 MG TAB PO SCH (08:06)
[2018-02-06] MEDS: Amiodarone 200 MG TAB PO SCH (08:06)
[2018-02-06] MEDS: Enoxaparin Sodium 40 MG/0.4 ML SYRINGE SC SCH (08:06)
[2018-02-06] MEDS: Clopidogrel Bisulfate 75 MG TAB PO SCH (08:06)
[2018-02-06] MEDS: WELCHOL 625 MG PO SCH (08:07)
[2018-02-06 13:15] VITALS: BP 134/81; TEMP 98.7
[2018-02-06] MEDS: Rosuvastatin 5 MG TAB PO SCH (13:37)
--- NOTE | 2018-02-06 13:52 | PDOC.PN ---
- Subjective Encounter Start Date: 02/06/18 Encounter Start Time: 11:30 -: old records requested/rev Pt seen and examined, chart reviewed in its entirety, this is my first visit with this patient Pt doing well. being discharged by CT surgery today NO F/C,no N/V/d/C, no CP or sOB All systems reviewed and neg for all except as stated above - Objective Resuscitation Status: Resuscitation Status FULL:Full Resuscitation MAR Reviewed: Yes Vital Signs & Weight: Vital Signs (12 hours) Temp Pulse Pulse Pulse Resp BP BP 02/06/18 13:13 98.7 F 84 84 H 02/06/18 09:17 84 84 119/73 144/83 H 02/06/18 08:05 97.9 F 93 18 02/06/18 08:02 97.9 F 93 18 02/06/18 02:57 98.8 F 81 16 BP BP Pulse Ox Pulse Ox Pulse Ox 02/06/18 13:13 134/81 94 L 02/06/18 09:17 97 95 02/06/18 08:05 93 L 02/06/18 08:02 130/74 93 L 02/06/18 02:57 153/82 H 94 L Weight Weight 212 lb Most Recent Monitor Data Heart Rate from ECG 104 NIBP 110/72 NIBP BP-Mean 92 Respiration from ECG 17 SpO2 94 I&O: 02/05/18 02/06/18 02/07/18 06:59 06:59 06:59 Intake Total 401.0 Output Total 300 Balance 101.0 Result Diagrams: 02/04/18 04:20 02/04/18 04:20 Radiology Reviewed by me: Yes EKG Reviewed by me: Yes Phys Exam - Physical Examination Constitutional: NAD HEENT: PERRLA, moist MMs, sclera anicteric, oral pharynx no lesions Neck: no nodes, no JVD, supple, full ROM Respiratory: no wheezing, no rales, no rhonchi, clear to auscultation bilateral Cardiovascular: RRR, no significant murmur Gastrointestinal: soft, non-tender, no distention, positive bowel sounds Musculoskeletal: no edema, pulses present Neurological: non-focal, normal sensation, moves all 4 limbs Lymphatic: no nodes Psychiatric: normal affect, A&O x 3 Skin: no rash, normal turgor, cap refill <2 seconds Deviation from normal: sternotomy C/D/I Dx/Plan (1) Atrial fibrillation Code(s): I48.91 - UNSPECIFIED ATRIAL FIBRILLATION Status: Acute Qualifiers: Atrial fibrillation type: unspecified Qualified Code(s): I48.91 - Unspecified atrial fibrillation (2) Angina pectoris without myocardial infarction Code(s): I20.9 - ANGINA PECTORIS, UNSPECIFIED Status: Resolved (3) CAD (coronary artery disease) Code(s): I25.10 - ATHSCL HEART DISEASE OF [place] CORONARY ARTERY W/O ANG PCTRS Status: Acute Qualifiers: Coronary Disease-Associated Artery/Lesion type: ambler artery [place] vs. transplanted heart: ambler heart Associated angina: with stable angina Qualified Code(s): I25.118 - Atherosclerotic heart disease of ambler coronary artery with other forms of angina pectoris Comment: Stable. Had 90% in-stent restenosis in RCA. S/p CABG 02/02/2018. (4) Myocardial infarct Code(s): I21.9 - ACUTE MYOCARDIAL INFARCTION, UNSPECIFIED Status: Acute Qualifiers: Myocardial infarction type: non-ST elevation myocardial infarction Qualified Code(s): I21.4 - Non-ST elevation (NSTEMI) myocardial infarction (5) HLD (hyperlipidemia) Code(s): E78.5 - HYPERLIPIDEMIA, UNSPECIFIED Status: Chronic Qualifiers: Hyperlipidemia type: unspecified Qualified Code(s): E78.5 - Hyperlipidemia , unspecified (6) HTN (hypertension) Code(s): I10 - ESSENTIAL (PRIMARY) HYPERTENSION Status: Chronic Qualifiers: Hypertension type: essential hypertension Qualified Code(s): I10 - Essential (primary) hypertension - Plan cont current plan of care, out of bed/ambulate * . home per CT surgery today
--- NOTE | 2018-02-08 09:09 | DIS ---
DATE OF ADMISSION: 01/31/2018 DATE OF DISCHARGE: 02/06/2018 PROCEDURES PERFORMED: Cardiac catheterization on 02/01/2018, coronary artery bypass grafting x3 with left internal mammary artery to the LAD and reverse saphenous vein grafts from the aorta to the post erior descending and posterolateral branches of the right coronary artery on 02/02/2018. PRINCIPAL DIAGNOSIS: Coronary artery disease. HISTORY OF PRESENT ILLNESS/HOSPITAL COURSE: The patient is a 62-year-old man with known coronary dis ease, who had undergone Lexiscan Cardiolite testing as an outpatient prior to anticipated cervical sp ine surgery that demonstrated a fixed defect inferior wall. Couple days later, he developed chest pr essure associated with nausea, prompting presentation in the emergency room. He ruled out for myocar dial infarction by enzymes. Cardiac catheterization demonstrates proximal LAD disease as well as a v ankit high grade right coronary disease. He underwent bypass of his LAD and his right coronary system and the only issue of note, the perioperative period was the development of atrial fibrillation and f lutter that resolved on amiodarone. He had no recurrence of his atrial arrhythmias. He is now being discharged home on postoperative day 4 on amiodarone 200 mg t.i.d., Toprol-XL 25 mg a day, Lasix 40 mg a day, and Plavix 75 mg a day, baby aspirin a day. Plan on seeing him in the office in about 2 we eks' time. Follow up with Dr. Cross per him.
== END 2018-02-06 14:02 | disposition home or self-care (01) | DRG 234 ==
LOC: ERS 15:33 → OBSVTOIN 21:18 → INTOOBSV 21:18 → 2NO 21:18 → CCU 02-02 08:25 → 2NO 02-04 09:04
PROVIDERS: ADMIT Internal Medicine; ATTEND Internal Medicine
PROC: 4A023N7 Measurement of Cardiac Sampling and Pressure, Left Heart, Percutaneous Approach (ICD-10-PCS; 2018-02-01)
PROC: B2111ZZ Fluoroscopy of Multiple Coronary Arteries using Low Osmolar Contrast (ICD-10-PCS; 2018-02-01)
PROC: B2151ZZ Fluoroscopy of Left Heart using Low Osmolar Contrast (ICD-10-PCS; 2018-02-01)
PROC: 02100Z9 Bypass Coronary Artery, One Artery from Left Internal Mammary, Open Approach (ICD-10-PCS; principal; 2018-02-02)
PROC: 021109W Bypass Coronary Artery, Two Arteries from Aorta with Autologous Venous Tissue, Open Approach (ICD-10-PCS; 2018-02-02)
PROC: 06BQ0ZZ Excision of Left Saphenous Vein, Open Approach (ICD-10-PCS; 2018-02-02)
PROC: 5A1221Z Performance of Cardiac Output, Continuous (ICD-10-PCS; 2018-02-02)
DX: I25.10 Atherosclerotic heart disease of native coronary artery without angina pectoris (principal); I48.92 Unspecified atrial flutter; I48.91 Unspecified atrial fibrillation; I10 Essential (primary) hypertension; E78.5 Hyperlipidemia, unspecified; I25.2 Old myocardial infarction; Z85.46 Personal history of malignant neoplasm of prostate; Z88.0 Allergy status to penicillin; Z88.8 Allergy status to other drugs, medicaments and biological substances; Z79.02 Long term (current) use of antithrombotics/antiplatelets; Z79.899 Other long term (current) drug therapy; Z95.5 Presence of coronary angioplasty implant and graft; Z90.79 Acquired absence of other genital organ(s)
CPT/HCPCS: 36415; 36416; 36430; 71045; 76942; 80048; 80053; 82550; 82553; 82805; 84484; 85025; 85610; 85730; 86850; 86900; 86901; 93005; 93010; 93458; 93798; 94002; 94150; 96365; 96375; 99152; 99153; A4216; C1769; J0282; J0461; J1642; J1644; J1650; J1815; J1885; J1956; J2001; J2150; J2250; J2270; J2370; J2405; J2440; J2704; J2720; J2765; J3010; J3370; J3475; J3480; J3490; J7050; J7070; P9045; Q0162; S0028

== ENCOUNTER 2018-03-07 12:01 | Inpatient (IN) | payer BC ==
[2018-03-07 12:30] LABS: #Eosinphils 0.4 thou/uL (0.0-0.7); #Lymphocytes 1.7 thou/uL (1.20-3.40); #Monocytes 0.7 thou/uL (0.11-0.59); #Neutrophils 5.9 thou/uL (1.40-6.50); %Basophils 0.2 % (0.0-1.0); %Eosinophils 4.4 % (0.0-10.0); %Lymphocytes 20.1 % (21.0-51.0); %Monocytes 7.6 % (0.0-10.0); %Neutrophils 67.7 % (42.0-75.0); Hemoglobin 11.3 g/dL (14.0-18.0); Mean Corpuscular HGB CONC 33.8 g/dL (32.0-36.0); Mean Corpuscular Hemoglobin 28.5 pg (27.0-31.0); Mean Corpuscular Volume 84.2 fL (78.0-98.0); Mean Platelet Volume 8.4 fL (7.4-10.4); Platelet Count 216 thou/uL (130-400); RBC Distribution Width 13.6 % (11.5-14.5); Red Blood Cell (RBC) Count 3.97 mill/uL (4.70-6.10); White Blood Cell (WBC) Count 8.6 thou/uL (4.8-10.8)
--- NOTE | 2018-03-07 12:32 | CT ---
CT OF HEAD NONCONTRAST: INDICATION: Stroke, right side weakness progressive. FINDINGS: There is no acute intracranial hemorrhage or mass effect or midline shift. No ventriculomegaly. The re is partial opacification of the imaged left maxillary sinus. IMPRESSION: No acute intracranial hemorrhage or mass effect. Telephone call with findings placed at 1219 hours 03/07/18. CODE CR POS: [facility]
[2018-03-07 12:50] LABS: PTT 25.3 SEC (22.9-36.1); Prothrombin Time 13.2 SEC (12.0-14.7)
[2018-03-07 12:54] LABS: ALT (SGPT) 15 U/L (8-55); AST (SGOT) 15 U/L (5-34); Albumin 3.9 g/dL (3.4-4.8); Alkaline Phosphatase 98 U/L (40-150); Anion Gap 10 mmol/L (10-20); BUN (Urea Nitrogen) 17 mg/dL (8.4-25.7); Bilirubin, Total 0.4 mg/dL (0.2-1.2); CK (CPK) 83 U/L (30-200); CKMB 1.8 ng/mL (0-6.6); Calc. Creatinine Clearance 0 mL/min (70-130); Calcium 8.8 mg/dL (7.8-10.44); Carbon Dioxide 24 mmol/L (23-31); Chloride 108 mmol/L (98-107); Estimated GFR-MDRD 65; Globulin 2.3 g/dL (2.4-3.5); Glucose 80 mg/dL (80-115); Potassium 4.4 mmol/L (3.5-5.1); Protein, Total 6.2 g/dL (5.8-8.1); Sodium 138 mmol/L (136-145); Troponin I 0.051 ng/mL (< 0.028)
--- NOTE | 2018-03-07 13:06 | CT ---
CTA OF THE HEAD AND NECK UTILIZING IV CONTRAST AND 3D REFORMATTED IMAGING: INDICATION: Right-sided weakness that began over 24 hours ago. Last seen normal at 2230 hours. COMPARISON: CT of brain dated 03/07/18. FINDINGS: No hemodynamically significant stenosis, occlusion, or aneurysmal formation is evident. The left jane tebral artery terminates at the left PICA. The right vertebral artery is dominant. There are mild v ascular calcifications noted involving the cavernous and supraclinoid ICAs. No area of abnormal enha ncement is seen involving the brain parenchyma. There is mild air fluid level within the left maxill khalif sinus. The grindstone lenses have been replaced. Visualized aerodigestive tract appears within norm al limits. There is a small left pleural effusion. There is ground-glass opacity involving both chirag gs suspicious for edema. The parotid, submandibular, and thyroid gland appear within normal limits. No enlarged lymph nodes are evident. There is scattered degenerative and osteoarthritic change. IMPRESSION: 1. No hemodynamically significant stenosis, occlusion, or aneurysmal formation. 2. The left vertebral artery terminates at the left posterior inferior cerebellar artery. The right vertebral artery is dominant. 3. Small air fluid level within the left maxillary sinus may reflect sequelae of sinusitis. Recomme nd correlation. 4. Small left pleural effusion with bilateral upper lung perihilar opacity suspicious for edema. Re commend correlation for congestive heart failure with a chest radiograph. POS: [facility]
[2018-03-07] MEDS ORDERED: HYDROcodone/Acetaminophen 7.5/325 mg Tablet PO PRN (14:56)
[2018-03-07] MEDS ORDERED: ISOVUE-370 76%-LOCM 1 ML ONE (14:56)
[2018-03-07] MEDS ORDERED: Acetaminophen 325 MG TAB PO PRN (14:56)
[2018-03-07] MEDS ORDERED: Mag-Al 1200 mg/1200 mg/30 ML UDCUP PO PRN (14:56)
[2018-03-07] MEDS ORDERED: Milk Of Magnesia 30 ML UDCUP PO PRN (14:56)
[2018-03-07] MEDS ORDERED: Promethazine 25 MG TAB PO PRN (15:04)
[2018-03-07 15:45] LABS: #Basophils 0.1 thou/uL (0.0-0.2); #Eosinphils 0.4 thou/uL (0.0-0.7); #Lymphocytes 1.5 thou/uL (1.20-3.40); #Monocytes 0.5 thou/uL (0.11-0.59); #Neutrophils 4.6 thou/uL (1.40-6.50); %Basophils 0.8 % (0.0-1.0); %Eosinophils 5.2 % (0.0-10.0); %Lymphocytes 21.9 % (21.0-51.0); %Monocytes 7.4 % (0.0-10.0); %Neutrophils 64.8 % (42.0-75.0); Hemoglobin 11.1 g/dL (14.0-18.0); Mean Corpuscular HGB CONC 33.2 g/dL (32.0-36.0); Mean Corpuscular Hemoglobin 27.7 pg (27.0-31.0); Mean Corpuscular Volume 83.4 fL (78.0-98.0); Mean Platelet Volume 8.4 fL (7.4-10.4); Platelet Count 220 thou/uL (130-400); RBC Distribution Width 13.6 % (11.5-14.5); Red Blood Cell (RBC) Count 4.01 mill/uL (4.70-6.10)
[2018-03-07 15:51] LABS: Prothrombin Time 13.3 SEC (12.0-14.7)
[2018-03-07 15:56] LABS: PTT 24.7 SEC (22.9-36.1)
[2018-03-07 16:03] LABS: Anion Gap 11 mmol/L (10-20); BUN (Urea Nitrogen) 16 mg/dL (8.4-25.7); Calc. Creatinine Clearance 0 mL/min (70-130); Calcium 8.9 mg/dL (7.8-10.44); Carbon Dioxide 24 mmol/L (23-31); Chloride 108 mmol/L (98-107); Estimated GFR-MDRD 70; Glucose 88 mg/dL (80-115); Potassium 4.5 mmol/L (3.5-5.1); Sodium 138 mmol/L (136-145)
[2018-03-07] MEDS ORDERED: Ibuprofen 800 MG TAB ONE (16:39)
--- NOTE | 2018-03-07 17:55 | HP ---
ATTENDING PHYSICIAN: Dr. Gus Aceves. HISTORY OF PRESENT ILLNESS: The patient is a 62-year-old male with a past medical history of coronary artery disease status post, status post CABG 1 month ago, who presented to the ER [facility] for increasing numbness and tingling to the upper extremities, worsening weakness to the upper extremities and instability of his gait. Patient reports that his symptoms initially began as dysesthesias to bilateral upper extremities with some mild gait instability in 12/2017. At that time followed up with Dr. Franco in the office and had a cervical noncontrast MRI done which was notable for herniated disk at C3-C4 with significant central canal stenosis. During his pre-op cardiac evaluation prior to planned C3-C4 ACDF he was found to have cardiac abnormalities and subsequently underwent bypass surgery. Since that time, he reports that his marketing communications coordinator, Dr. Cross and Dr. Aguilar have both cleared him to move forward with his cervical surgery. He states that he had plans to have this done in the near future, but it has recently been denied by his insurance. Over the weekend, he states he suffered a mechanical fall and since that time has been falling much more frequently, had increased weakness to the upper extremities as well as increased numbness, tingling, and burning in a nonradicular pattern to bilateral upper extremities. He denies any bowel or bladder issues. Last cervical MRI done on 01/15/2018. PAST MEDICAL HISTORY: Coronary artery disease, hypertension, hyperlipidemia, prostate disease. PAST SURGICAL HISTORY: CABG, cardiac stenting, prostatectomy, bilateral rotator cuff repairs, umbilical hernia surgery. SOCIAL HISTORY: The patient is . He does not smoke, drink or use any drugs. ALLERGIES: He is allergic to PENICILLINS and STATINS. FAMILY HISTORY: Noncontributory. REVIEW OF SYSTEMS: Per HPI. PHYSICAL EXAMINATION: VITAL SIGNS: BP is 142/68, pulse is 50, respiration rate is 16. The patient is 99% on room air, temperature is 98.1. CONSTITUTIONAL: Patient is sitting in the bed comfortably in no acute distress. HEENT: Normocephalic, atraumatic. EYES: PERRLA. Extraocular movements intact. ENT: Oral mucosa is pink, intact and moist. He has a normal voice. NECK: Nontender to palpation. He has free active range of motion, no meningismus or nuchal rigidity. CARDIOVASCULAR: Regular rate and rhythm. PULMONARY: He is breathing comfortably with symmetric chest expansion. MUSCULOSKELETAL: Upper extremities, the patient has slight weakness over the upper extremities 4-/5. He is significantly hyperreflexive over bilateral biceps and triceps jerk 4+/4. They are symmetric. Positive Arnold's sign. Lower extremities hyperreflexive knee jerk reflex and ankle jerk reflex for a 4+ /4 bilaterally symmetric. Negative clonus. He has 5/5 strength to the lower extremities while sitting in the bed. NEUROLOGIC: He is A&O x4. He has a very unsteady gait and is at significant fall risk. ASSESSMENT AND PLAN: This is a 62-year-old male with a known C3-C4 herniated disk with significant central canal stenosis. Plan for C3-C4 ACDF that was recently denied by his insurance who had a fall over the weekend and since that time has had increasing balance instability, burning sensation and numbness to the upper extremities as well as upper extremity weakness. I will plan to get a repeat cervical MRI noncontrast imaging. I have admitted him to the Med/Surg floor where we will begin p.o. steroids 4 mg of Decadron p.o. q.6 h. with an H2 jaime. I have also ordered medications for pain control. We will stop any anticoagulants and antiplatelet drugs such as aspirin and Plavix in anticipation for possible need for surgical intervention. I have discussed this plan with Dr. Aceves who is in agreement. We will ask the medicine service to assist us with medical management of this patient considering his recent cardiac surgery. Please reach out to Neurosurgery for additional questions or concerns. NICK
[2018-03-07] MEDS: Dexamethasone 4 MG TAB PO SCH ×2 (18:47→22:47)
--- NOTE | 2018-03-07 21:05 | CON ---
DATE OF CONSULTATION: 03/07/2018 CONSULTING PHYSICIAN: Neurosurgery, Dr. Franco. PURPOSE OF CONSULTATION: Medical management. HISTORY OF PRESENT ILLNESS: The patient is a 62-year-old male who was getting admitted thr ough the emergency room after he contacted Dr. Franco's PA today when he developed exacerbation of his numbness and tingling in both hands and weakness in the right upper hand, also associated with s ome problem with walking. This is going on for quite some time and recently, the patient noticed sig nificant worsening of the problem and it got to the point that he decided to call a neurosurgeon afte r he left the religious today. This patient has C3-C4 disk herniation known to neurosurgeon and he was getting ready for a surgery, but in the meantime, he was found to have a coronary artery disease, whi ch was treated with CABG approximately 3 weeks ago. Since that time, those symptoms are getting grad ually worse, but the last few days it is significantly worse to the point that he is dropping a cup f rom his right hand. Also, he fell recently and despite of gabapentin, which he has used in 3-times-a -day dose, he still has a lot of numbness, tingling, and weakness in this right upper hand and numbne ss and tingling in the left hand. PAST MEDICAL HISTORY: Positive for, 1. Hypertension. 2. Coronary artery disease. 3. Prostate cancer. 4. Seasonal allergies. 5. Dyslipidemia. PAST SURGICAL HISTORY: 1. Prostatectomy. 2. Rotator cuff surgery. 3. Tonsillectomy. 4. Multiple stents. ALLERGIES: STATINS. FAMILY HISTORY: Positive for hypertension, heart disease, and hyperlipidemia. CURRENT MEDICATIONS: List is not available at the time of my visit, but the is supposed to go h ome and get us his list. SOCIAL HISTORY: We do not have any information that he uses any illicit drugs or cigarette smoking o r alcohol. REVIEW OF SYSTEMS: Constitutional: Negative for fever and chills. Eyes: Negative for eye pain and eye discharge. ENT: Negative for nasal congestion and epistaxis. Cardiovascular: Negative for ch est pain and palpitations. Respiratory: Negative for cough and shortness of breath. Gastrointestin al: Negative for nausea, vomiting, and diarrhea. Genitourinary: Negative for hematuria and dysuria . Musculoskeletal: Positive for weakness in the right upper extremity. Neurologic: Tingling and n umbness in both hands and some weakness in the right upper extremity and inability to keep good renetta ce, walking is affected. Psychiatric: Negative for homicidal ideation and suicidal ideations. PHYSICAL EXAMINATION: GENERAL: He is not in any significant distress at the time of visit. VITAL SIGNS: His blood pressure is 140/64, pulse is 50, respiratory rate is 20. He is on room air 1 00% and temperature is 98.4. HEENT: Atraumatic, normocephalic. Eyes are PERRLA. Sclerae are nonicteric. Oral mucosa is moist. NECK: Supple. LUNGS: Clear. HEART: S1, S2 normal. No S3, no S4, no murmur. ABDOMEN: Soft, nontender, nondistended. EXTREMITIES: No clubbing, cyanosis, or edema. NEUROLOGIC: He is alert and oriented x4. Not any cerebellar dysfunction. There is weakness in the right upper extremity and in both hands small muscles. There is a decreased sensation over both hand s, but there is normal sensation over his feet. LABORATORY DATA: Showed normal white count, hemoglobin 11.3, hematocrit 33.4, platelet count is 216. Chemistry showed sodium of 138, potassium 4.5, chloride 108, CO2 of 24. The rest of chemistry is w ithin normal limits. Troponin I is 0.051. Globulin is 2.3. INR is 1, PT is 13.3, PTT 24.7. Brain CT showed no acute intracranial hemorrhage or mass effect. This was personally reviewed by me and the CT of the alutiiq of Cross angio showed no hemodynamically significant stenosis, occlusion, o r aneurysmal formation. The left vertebral artery terminates at the left posterior inferior cerebral artery. The right vertebral artery is dominant. There is a small air fluid level within the left m axillary sinus and small left pleural effusion with bilateral upper lung perihilar opacity suspicious for edema. IMPRESSION: 1. Tingling and numbness along with right upper extremity weakness, most likely related to a C3-C4 d isk herniation, which is known for quite some time. 2. Elevated troponin in indeterminant rate. The patient has a history of coronary artery disease. He does not have any complaints of any chest pain. We will obtain 2 additional sets to rule out acut e coronary syndrome, which is very unlikely. 3. Hypertension, stable. 4. Coronary artery disease. 5. History of prostate cancer. 6. Seasonal allergies. 7. Dyslipidemia. PLAN: We are going to obtain medication list in the next most likely several hours, so maybe tomorro w morning, and we will assist you with any medical issues this patient develops. He will be set up f or surgery most likely tomorrow or after tomorrow. Thank you very much for the consultation.
[2018-03-07 21:30] LABS: CKMB 1.4 ng/mL (0-6.6); Troponin I 0.039 ng/mL (< 0.028)
[2018-03-07] MEDS ORDERED: Rosuvastatin 5 MG TAB PO SCH (22:30)
[2018-03-07] MEDS ORDERED: Amiodarone 200 MG TAB PO SCH (22:45)
[2018-03-07] MEDS ORDERED: Gabapentin 300 MG CAP PO SCH (22:45)
[2018-03-07] MEDS: Famotidine 20 MG TAB PO SCH (22:47)
[2018-03-08] MEDS: Sodium Chloride 0.9% 1,000 ML IV SCH ×2 (00:07→03:41)
[2018-03-08 01:00] VITALS: BMI 27.6
[2018-03-08 01:28] LABS: CKMB 1.2 ng/mL (0-6.6); Troponin I 0.047 ng/mL (< 0.028)
[2018-03-08] MEDS: Dexamethasone 4 MG TAB PO SCH ×2 (05:41→13:28)
--- NOTE | 2018-03-08 07:00 | PRG ---
DATE OF SERVICE: 03/08/2018 I personally interviewed and examined the patient and agree with documentation of a Dang Kennedy dated 03/07/2018. Briefly, David Dorado is a patient in our neurosurgery clinic. He has known cervical spondylitic my elopathy and surgery has been recommended for quite some time. During his preoperative evaluation, kalen beckwith was found to have significant coronary artery disease. A third stent could not be placed by Dr. Jeet rick within the lumen of the second stent that is occluding and he is a candidate for coronary art ankit bypass grafting. Dr. Mack has completed that procedure and declared him fit for surgery. Unfor tunately, Mr. Dorado took his Plavix yesterday. Over the weekend his cervical spondylitic myelopathy took a turn for the worse. He was falling. He dropped his razor from his hand. He was markedly off balance in hinduism. For these reasons, he came to the emergency department and was admitted. Overnight, his vitals have been stable. His examinati on shows significant upper extremity weakness in the intrinsic muscles of the hands and brisk reflexe s. He is off balance when he walks. An MRI scan of the cervical spine is plan for today. I reconfirmed to Mr. Dorado that he is an excell ent candidate for ACDF. Conservative measures are contraindicated because of his deterioration and s urgery is the recommendation. Between now and when we can get the operation done he is going to wear a cervical collar. He will take Decadron and Protonix and we will get him on the schedule to be ope rated on as soon as we can. Plavix prevents any surgery until 1 week after the Plavix which would make next Thursday the earliest o perative date. We will check schedules and make sure that he get operated quickly.
[2018-03-08] MEDS ORDERED: COLESEVELAM HCL 625 MG PO SCH (09:00)
[2018-03-08] MEDS ORDERED: Allopurinol 300 MG TAB PO SCH (09:00)
[2018-03-08] MEDS: Famotidine 20 MG TAB PO SCH (09:02)
[2018-03-08] MEDS: Amiodarone 200 MG TAB PO SCH ×2 (09:03→15:56)
[2018-03-08] MEDS: Gabapentin 300 MG CAP PO SCH ×2 (09:03→13:27)
--- NOTE | 2018-03-08 09:31 | PRG ---
DATE OF SERVICE: 03/08/2018 HISTORY: Mr. Dorado is a gentleman who recently underwent coronary bypass grafting. He is planning o n having cervical spine surgery. Unfortunately he fell and had some transient neurologic deficits. He has not had any chest pain to suggest any angina. PHYSICAL EXAMINATION: VITAL SIGNS: Blood pressure 138/60, pulse 52 regular. LUNGS: Clear. CARDIAC: Normal S1, normal S2. ABDOMEN: Soft, nontender. EXTREMITIES: There is no edema. ASSESSMENT: 1. Recent bypass surgery. 2. Needs cervical spine surgery. PLAN: 1. Discontinue Plavix. 2. Continue aspirin 81 mg a day. 3. Home to be brought back for surgical therapy, timing per the neurosurgeons and the patient is sta ble to proceed from a cardiac standpoint at any time.
[2018-03-08 11:46] VITALS: TEMP 97.9
--- NOTE | 2018-03-08 13:03 | CT ---
CTA OF THE HEAD AND NECK UTILIZING IV CONTRAST AND 3D REFORMATTED IMAGING: INDICATION: Right-sided weakness that began over 24 hours ago. Last seen normal at 2230 hours. COMPARISON: CT of brain dated 03/07/18. FINDINGS: No hemodynamically significant stenosis, occlusion, or aneurysmal formation is evident. The left jane tebral artery terminates at the left PICA. The right vertebral artery is dominant. There are mild v ascular calcifications noted involving the cavernous and supraclinoid ICAs. No area of abnormal enha ncement is seen involving the brain parenchyma. There is mild air fluid level within the left maxill khalif sinus. The craig lenses have been replaced. Visualized aerodigestive tract appears within norm al limits. There is a small left pleural effusion. There is ground-glass opacity involving both chirag gs suspicious for edema. The parotid, submandibular, and thyroid gland appear within normal limits. No enlarged lymph nodes are evident. There is scattered degenerative and osteoarthritic change. IMPRESSION: 1. No hemodynamically significant stenosis, occlusion, or aneurysmal formation. 2. The left vertebral artery terminates at the left posterior inferior cerebellar artery. The right vertebral artery is dominant. 3. Small air fluid level within the left maxillary sinus may reflect sequelae of sinusitis. Recomme nd correlation. 4. Small left pleural effusion with bilateral upper lung perihilar opacity suspicious for edema. Re commend correlation for congestive heart failure with a chest radiograph.
[2018-03-08 14:17] VITALS: BP 128/68
--- NOTE | 2018-03-08 17:04 | MRI ---
NONCONTRAST MRI CERVICAL SPINE: 03/08/2018 HISTORY: Cervical myelopathy. HNP at the C3-C4 level. The patient complains of an unsteady gait that started yesterday after a fall. Numbness in the bilateral hands, greater on the left. COMPARISON: 01/15/2018 FINDINGS: There is mild volume loss involving each cerebellar hemisphere. The cervicomedullary junction has a normal MRI appearance. Prominent degenerative changes are again seen involving the articulation of the odontoid with the ant erior arch of C1. Multilevel degenerative changes are again seen in the cervical spine. C2-C3: There is no significant disk bulge or disk herniation. The central spinal canal and neural f oramina are patent. C3-C4: There are endplate degenerative changes and loss of intervertebral disk height. There is a d isk osteophyte complex and facet hypertrophic changes at this level. Severe bilateral neural foramin al narrowing is again present, greater on the left. There is moderate to severe narrowing of the rochelle tral spinal canal. As noted on the prior examination, there is abnormal increased T2 weighted signal intensity within the spinal cord, greater on the right and at the C3-C4 level, which extends from th e inferior endplate of the C3 vertebral body to the mid portion of the C5 vertebral body. Second are a of mild increased T2 weighted signal intensity is also seen at the left aspect of the spinal cord, at the C3-C4 level, which is only seen at this level and is stable from the prior exam. Again, there is mild expansion of the spinal cord at level of the abnormal signal intensity compared to the spina l cord above and below these levels. The findings again may be related to spinal cord edema. C4-C5: There is a broad-based disk osteophyte complex, which narrows the ventral subarachnoid space. There are facet degenerative changes. There is severe bilateral neural foraminal narrowing similar to the prior exam. There is mild generalized narrowing of the central spinal canal. C5-C6: There is loss of intervertebral disk height. There is a broad-based disk osteophyte complex and facet degenerative changes. There is severe bilateral neural foraminal narrowing with mild to mo derate narrowing of the central spinal canal. C6-C7: There is loss of intervertebral disk height. Endplate degenerative changes are present at th is level. There is a broad-based disk osteophyte complex. This does result in narrowing of the vent ral subarachnoid space with mild generalized narrowing of the central spinal canal. There is mild ri ght and moderate left-sided neural foraminal narrowing. C7-T1: There is a broad-based disk osteophyte complex and facet degenerative changes. There is narr owing of the ventral subarachnoid space with mild generalized narrowing of the central spinal canal. There is mild to moderate bilateral neural foraminal narrowing. There is heterogeneity of the bone marrow with endplate degenerative change at multiple levels. The heterogeneity is likely related to conversion to red marrow, as opposed to a marrow infiltrative type process. IMPRESSION: 1. Multilevel degenerative changes are seen throughout the cervical spine, which are overall similar to the prior exam. The abnormal increased T2 weighted signal intensity within the spinal cord, at t he C3-C4 level, is again seen, and the abnormal signal intensity is mildly increased from the prior e xam. This is at level of greatest degree of central canal narrowing with moderate to severe narrowin g at this level. Findings are thought to most likely be attributable to cord edema at this level, wh ich, again appears mildly progressed. 2. No findings to suggest an epidural hematoma. MRI of the cervical spine is otherwise stable from the prior study with multifocal neural foraminal narrowing with severe narrowing of the neural forami na at multiple levels. 3. The prevertebral as well as paravertebral soft tissues appear to be within normal limits. No bon e marrow edema or abnormal signal intensity is seen in the soft tissues of the cervical spine, based on the fluid-sensitive sequence. POS: [facility]
[2018-03-08] MEDS ORDERED: Gabapentin 300 MG CAP PO SCH (21:00)
[2018-03-08] MEDS ORDERED: Ezetimibe 10 MG TAB PO SCH (21:00)
== END 2018-03-08 17:08 | disposition home or self-care (01) | DRG 552 ==
LOC: ERS 12:01 → SURG A 14:56
PROVIDERS: ADMIT Neurological Surgery; ATTEND Neurological Surgery
DX: M47.12 Other spondylosis with myelopathy, cervical region (principal); M50.01 Cervical disc disorder with myelopathy, high cervical region; I10 Essential (primary) hypertension; E78.5 Hyperlipidemia, unspecified; M48.02 Spinal stenosis, cervical region; I25.10 Atherosclerotic heart disease of native coronary artery without angina pectoris; R20.2 Paresthesia of skin; R20.8 Other disturbances of skin sensation; R26.0 Ataxic gait; Z95.1 Presence of aortocoronary bypass graft; Z95.5 Presence of coronary angioplasty implant and graft; Z88.0 Allergy status to penicillin; Z88.8 Allergy status to other drugs, medicaments and biological substances; Z79.899 Other long term (current) drug therapy; Z79.02 Long term (current) use of antithrombotics/antiplatelets; Z79.82 Long term (current) use of aspirin; Z87.39 Personal history of other diseases of the musculoskeletal system and connective tissue; Z85.46 Personal history of malignant neoplasm of prostate; Z85.89 Personal history of malignant neoplasm of other organs and systems; Z87.19 Personal history of other diseases of the digestive system; I25.2 Old myocardial infarction; Z90.79 Acquired absence of other genital organ(s); Z91.81 History of falling
CPT/HCPCS: 36415; 36416; 70450; 70496; 70498; 72141; 80053; 82553; 84484; 85025; 85610; 85730; 93005; 94760; G8978-GP-CK; G8979-GP-CK; G8980-GP-CK; G8987-GO-CJ; G8988-GO-CI; J8540; L0174

== ENCOUNTER 2018-03-13 13:33 | Inpatient (IN) | payer BC ==
[2018-03-13 14:05] LABS: #Monocytes 0.9 thou/uL (0.11-0.59); #Neutrophils 10.3 thou/uL (1.40-6.50); %Basophils 0.3 % (0.0-1.0); %Eosinophils 0.1 % (0.0-10.0); %Lymphocytes 15.1 % (21.0-51.0); %Monocytes 6.9 % (0.0-10.0); %Neutrophils 77.5 % (42.0-75.0); Hemoglobin 11.9 g/dL (14.0-18.0); Mean Corpuscular HGB CONC 33.3 g/dL (32.0-36.0); Mean Corpuscular Hemoglobin 27.6 pg (27.0-31.0); Mean Corpuscular Volume 82.9 fL (78.0-98.0); Mean Platelet Volume 8.5 fL (7.4-10.4); Platelet Count 315 thou/uL (130-400); RBC Distribution Width 13.6 % (11.5-14.5); Red Blood Cell (RBC) Count 4.33 mill/uL (4.70-6.10); White Blood Cell (WBC) Count 13.3 thou/uL (4.8-10.8)
[2018-03-13 14:10] LABS: Prothrombin Time 14.9 SEC (12.0-14.7)
[2018-03-13 14:11] LABS: PTT 21.4 SEC (22.9-36.1)
[2018-03-13 14:13] LABS: INR-International Normal Ratio 1.2
[2018-03-13 14:16] LABS: ALT (SGPT) 95 U/L (8-55); AST (SGOT) 43 U/L (5-34); Albumin 3.8 g/dL (3.4-4.8); Alkaline Phosphatase 80 U/L (40-150); Anion Gap 12 mmol/L (10-20); BUN (Urea Nitrogen) 26 mg/dL (8.4-25.7); Bilirubin, Total 0.5 mg/dL (0.2-1.2); CK (CPK) 37 U/L (30-200); Calc. Creatinine Clearance 0 mL/min (70-130); Calcium 8.8 mg/dL (7.8-10.44); Carbon Dioxide 26 mmol/L (23-31); Chloride 101 mmol/L (98-107); Estimated GFR-MDRD 53; Globulin 2.1 g/dL (2.4-3.5); Glucose 144 mg/dL (80-115); Potassium 4.2 mmol/L (3.5-5.1); Protein, Total 5.9 g/dL (5.8-8.1); Sodium 135 mmol/L (136-145)
[2018-03-13 14:20] LABS: CKMB 1.7 ng/mL (0-6.6); Troponin I 0.061 ng/mL (< 0.028)
[2018-03-13] MEDS ORDERED: Pepto Bismol Chew TAB PO PRN (15:19)
[2018-03-13] MEDS ORDERED: Zolpidem Tartrate 5 MG TAB PO PRN (15:19)
[2018-03-13] MEDS ORDERED: Bisacodyl 5 MG TAB PO PRN (15:19)
[2018-03-13] MEDS ORDERED: Acetaminophen 325 MG TAB PO PRN (15:19)
[2018-03-13] MEDS ORDERED: Milk Of Magnesia 30 ML UDCUP PO PRN (15:19)
[2018-03-13] MEDS ORDERED: Mag-Al 1200 mg/1200 mg/30 ML UDCUP PO PRN (15:19)
[2018-03-13] MEDS ORDERED: Calcium Carbonate 500 MG ChewTAB PO PRN (15:19)
[2018-03-13] MEDS ORDERED: HYDROcodone/Acetaminophen 7.5/325 mg Tablet PO PRN ×2 (15:19)
[2018-03-13] MEDS ORDERED: Fleet Enema 133 ML BOT PR PRN (15:19)
[2018-03-13] MEDS ORDERED: Senokot 8.6 MG TAB PO PRN (15:19)
[2018-03-13] MEDS ORDERED: Promethazine 25 MG TAB PO PRN (15:30)
[2018-03-13] MEDS ORDERED: Promethazine HCl 25 MG/ML VIAL IM PRN (15:30)
--- NOTE | 2018-03-13 15:30 | CT ---
NONCONTRAST CT HEAD: 03/13/18 HISTORY: Bilateral lower extremity weakness, stroke activation. COMPARISON: 03/07/18. FINDINGS: There is no evidence of a hemorrhage, acute infarction, mass effect or midline shift. Ventricular sys tem is normal in size, shape, and position. There has been no interval change when compared to the pr ior exam. IMPRESSION: 1. No acute intracranial abnormalities demonstrated. 2. Above findings discussed with Dr. Foster in the Emergency Department on 03/13/18 at 1349 hours . POS: [facility]
[2018-03-13] MEDS ORDERED: Acetaminophen 500 MG TAB ONE (15:39)
[2018-03-13 18:38] VITALS: BMI 28.3
[2018-03-13] MEDS ORDERED: Ezetimibe 10 MG TAB PO SCH (21:00)
[2018-03-13] MEDS ORDERED: Rosuvastatin 5 MG TAB PO SCH (21:00)
[2018-03-13] MEDS ORDERED: COLESEVELAM PO SCH (21:00)
[2018-03-13] MEDS: Amiodarone 200 MG TAB PO SCH (21:35)
[2018-03-13] MEDS: Gabapentin 300 MG CAP PO SCH (21:35)
[2018-03-13] MEDS: Famotidine 20 MG TAB PO SCH (22:33)
[2018-03-13] MEDS: Docusate 100 MG CAP PO SCH (22:33)
[2018-03-14] MEDS: Sodium Chloride 0.9% 1,000 ML IV SCH ×2 (01:10→17:18)
--- NOTE | 2018-03-14 02:28 | HP ---
HISTORY OF PRESENT ILLNESS: Mr. Dorado is back in the ER today for worsening right-sided weakness and imbalance. The patient is known to us. He has had a history of cervical compression. Patient was originally scheduled for cervical ACDF in February; however, patient had to have a coronary bypass, which prevented the surgery from going forward. Following that surgery, the patient has been denied by insurance to reschedule. However, patient has been in and out of the ER with the worsening symptoms over the last couple of weeks. The patient had a fall last week due to weakness in his lower extremities. Patient states that he has little use with his hands. He has difficulty due to tingling in his bilateral hands. He has pain in his neck and reports pain down the right leg. The patient states that he feels unsteady on his feet. He states "it feels like he is walking on egg shells." He does not think that he is dizzy, but he feels unbalanced somehow and he is unsure how to explain it well. The patient denies any radicular pain in his arms just numbness and incoordination with his fingers. REVIEW OF SYSTEMS: A 10-point review of systems is negative other than stated above in the HPI. PAST MEDICAL HISTORY: Myocardial infarction with bypass, hyperlipidemia, hypertension, and history of prostate cancer which was treated with surgery. PAST SURGICAL HISTORY: Umbilical hernia repair. Patient has had bilateral rotator cuff surgeries and a prostatectomy. Nine cardiac stents done at the time of bypass. SOCIAL HISTORY: The patient denies any smoking. Alcohol use is occasional, maybe some red wine in the evenings, but very rare and he denies any other drug use. The patient lives at home with his . ALLERGIES: PENICILLIN and STATINS. CURRENT HOME MEDICATIONS: Omeprazole, Zetia, allopurinol, Welchol, Crestor, Cialis, Plavix, gabapentin, Lasix, aspirin, potassium chloride, metoprolol, amiodarone, lisinopril, dexamethasone. PHYSICAL EXAMINATION: VITAL SIGNS: Blood pressure 153/81, heart rate 48, respiratory rate 20, temperature 98.5, pain is 6, O2 satting on room air 94%. CONSTITUTIONAL: Patient is resting in hospital bed, does not appear to be in any significant distress. Normal work of breathing. He is afebrile. Nonhypertensive. HEAD: Atraumatic, normocephalic. ENT: Hearing is intact. Moist mucous membranes. EYES: Pupils are equal, round and reactive to light. Extraocular movements are intact. PULMONARY: Normal work of breathing room air. CARDIOVASCULAR: Regular rate and rhythm. Normal S1, S2. NEUROLOGIC: Cranial nerves II-XII are grossly intact. The patient has bilateral decrease in sensation in his hands, but does notice light touch then. There is mild to moderate weakness in finger extension and interosseous muscles bilaterally, 5/5 strength in bilateral deltoids, biceps, triceps, wrist extension. LOWER EXTREMITIES: Knee flexion, knee extension, dorsiflexion, plantar flexion. IMAGING: MRI C3-C4 herniated nucleus pulposus with cord compression and T2 signal change in the cord, right foraminal stenosis in C4-5 and C5-6. ASSESSMENT AND PLAN: Cervical disk disorder with myelopathy. Due to patient's worsening symptoms and history of falls , the patient is unsteady on his feet and worried for his safety at home and about he does not have activities of daily living that he wishes to have. Dr. Franco has offered ACDF for C3-4. Informed consent, we have discussed indications, risks, benefits, and alternatives expected results from surgery and the risks discussed included, but were not limited to bleeding, infection, CSF leak, nerve damage, weakness, swallowing trouble, feeding tube placement, tracheal injury, esophageal injury, vocal cord injury, spinal cord injury, incontinence, paralysis, ventilator dependence, wheelchair dependence, stroke, loss of vision, carotid artery injury , jugular vein injury, hardware placement, cardiopulmonary complications, seizure or . Long-term complications include but are not limited to hardware failure and degradation of surrounding disks. Patient states that he understands the risks and willing to proceed with surgery. NICK
[2018-03-14] MEDS: Amiodarone 200 MG TAB PO SCH ×2 (08:13→17:22)
[2018-03-14] MEDS: Docusate 100 MG CAP PO SCH (08:14)
[2018-03-14] MEDS: Gabapentin 300 MG CAP PO SCH ×2 (08:15→17:22)
[2018-03-14] MEDS: Famotidine 20 MG TAB PO SCH (08:15)
[2018-03-14 08:35] VITALS: BP 155/80; TEMP 97.2
[2018-03-14] MEDS ORDERED: TADALAFIL 5 MG PO SCH (09:00)
[2018-03-14] MEDS ORDERED: Allopurinol 300 MG TAB PO SCH (09:00)
[2018-03-14] MEDS ORDERED: Levofloxacin 500 mg/D5W 100 ml Premix Bag ONE (09:15)
[2018-03-14] MEDS ORDERED: Clindamycin/D5W 900 mg/50 ml Premix Bag ONE (09:15)
--- NOTE | 2018-03-14 09:53 | PRG ---
DATE OF SERVICE: 03/14/2018 I personally interviewed and examined the patient and agree with documentation of Amanda Samuel PA-C dated 03/13/2018. Briefly, David Dorado is a 62-year-old gentleman, well-known to our Neurosurgery service. We have b tellyn planning an ACDF for severe cervical spondylitic myelopathy with worsening balance for quite some time. His insurance provider has denied the surgery and requested that he go through 3 months of co nservative management in spite of the fact that he is falling down at home due to his imbalance. We tried conservative management, but it is failing miserably. He is unsafe and now came to the emergen cy department again yesterday for the second time in a week. The shunt was watched overnight and his vital signs have been stable. He has a joshua appearance on h is cheeks from the Decadron that we have him on. Neurological examination shows a subjective decreas e in sensation in the forearms and hands bilaterally. There is finger clumsiness. Alternating rapid motions are slowed in the fingers and incoordinated. I did not have him perform tandem gait, becaus e he is still off-balance with a regular gait position and is myelopathic and beginning to have abnor mal reflexes and is at the beginning of having abnormal reflexes with brisk knee jerks and ankle jerk s that I would expect for someone his age. The toes are equivocal. Imaging done last week points to the fact that the intervertebral disk disease is worsening and there is T2 signal change in the cord , especially at C3-4. I have recommended ACDF. INFORMED CONSENT: In the office, we discussed indications, risks, benefits, alternatives, and expect ed outcomes from anterior cervical diskectomy and fusion. The risks we discussed included, but were not limited to bleeding, infection, CSF leak, damage to the trachea, esophagus, vocal cords, carotid artery, jugular vein, damage to the spinal cord including wheelchair dependence, ventilator dependenc e, permanent paralysis, and cardiopulmonary complications of anesthesia including . He understa nds the risks and wants to proceed. We will take him to the operating room today.
[2018-03-14] MEDS ORDERED: Sodium Chloride 0.9% 10 ML ONE (10:20)
[2018-03-14] MEDS ORDERED: Thrombin 5000 UNITS/5 ML VIAL ONE (10:20)
[2018-03-14] MEDS ORDERED: Midazolam HCl 2 mg/2 ml Vial ONE (10:32)
[2018-03-14] MEDS ORDERED: Fentanyl 250 MCG/5 ML VIAL ONE (10:32)
[2018-03-14] MEDS ORDERED: Promethazine HCl 25 MG/ML VIAL SLOW IVP PRN (14:21)
[2018-03-14] MEDS ORDERED: Ondansetron HCl/PF 4 MG/2 ML Vial IVP PRN (14:21)
[2018-03-14] MEDS ORDERED: Promethazine HCl 25 MG/ML VIAL IM PRN (14:21)
[2018-03-14] MEDS ORDERED: Ondansetron HCl/PF 4 MG/2 ML Vial ONE (14:22)
--- NOTE | 2018-03-14 20:00 | OP ---
DATE OF PROCEDURE: 03/14/2018 PERFORMED BY: Mel Franco M.D. PAID INTERNSHIP: Amanda Samuel PA-C PREOPERATIVE INDICATION: Prevent further neurological deterioration. PREOPERATIVE DIAGNOSES: Cervical spondylitic myelopathy from intervertebral disk disease at C3-4 cor d compression and T2 signal change within the cord. POSTOPERATIVE DIAGNOSES: Cervical spondylitic myelopathy from intervertebral disk disease at C3-C4 c ord compression and T2 signal change within the cord. OPERATIVE PROCEDURE: Anterior cervical diskectomy, intervertebral arthrodesis, placement of interver tebral biomechanical device, anterior cervical plating C3-4, local morselized autograft, morselized A llograft, and operating microscope. PREOPERATIVE MEDICATION: Clindamycin 900 mg IV, Levaquin 500 mg IV. DRAIN NUMBER: Zero. DRAIN TYPE: None. OPERATIVE DICTATION: The patient was brought to the operating room. General endotracheal anesthesia was induced. The patient was positioned supine on the operating table, keeping his neck carefully i n normal anatomic alignment. A lateral fluoro radiograph was used to plan our incision. The right s lorene of the neck was sterilely prepped and draped. We made an incision and controlled bleeding with b ipolar cautery. We dissected sharply to the platysma. We dissected and cut this muscle in line with our incision and then dissected medial to the sternocleidomastoid and lateral to the trachea and eso phagus until we arrived at the prevertebral space. We placed a marker at C3-4 and took a lateral flu ayaka radiograph to confirm the levels upon which we were operating. We then elevated the longus colli muscles off the anterior surface of C3 and C4 and placed self-retaining and lateral retractors benea th them. We placed distraction pins at C3 and C4 and distracted across the intervening interspace. We incised the interspaces with a 15-blade knife and we removed disk contents using curettes and bill eurs. As we approached the posterior longitudinal ligament, we brought the operating microscope in t he field. Under microscopic magnification and using microsurgical techniques, we removed the remainder of the i ntervertebral disk. We accessed the ventral epidural space with a micro curette and used 1 mm Kerris on rongeur to remove posterior osteophytes and posterior longitudinal ligament across the entire inte rspace from one nerve root all the way to the other. When we were fully decompressed, we turned our attention to arthrodesis. Using curettes, we prepared the endplates for grafting. We measured the h eight of the interspace to 8 mm with a bone rasp. An 8 mm PEEK intervertebral graft was brought into the field. Osteophytes removed from the front and the back of the interspace were carefully cleaned of soft tissue attachments, morselized and added to demineralized bone matrix as our fusion substrat e. The PEEK grafts were loaded with local morselized autograft and morselized Allograft, and advance d into the interspace under radiographic guidance to the appropriate depth. We then removed the dist raction pins and took the operating microscope out of the field. A 16-mm anterior cervical plate was brought into the field. We drilled pilot instructor holes through the plate into C3 and C4 and affixed the plate using 14 mm screws. We used fixed angle screws at C4 and varia ble angle screws at C3. AP and lateral fluoro radiographs confirmed adequate positioning of our inst rumentation. We engaged the locking mechanism over each of the 4 screws. We irrigated copiously wit h bacitracin irrigation. We closed the wound in anatomic layers and applied a sterile dressing. Thi s was a clean case and no contamination.
[2018-03-27] MEDS ORDERED: EVOLOCUMAB 140 MG SC SCH (09:00)
== END 2018-03-14 18:15 | disposition home or self-care (01) | DRG 473 ==
LOC: ERS 13:33 → SURG B 15:19
PROVIDERS: ADMIT Neurological Surgery; ATTEND Neurological Surgery
PROC: 0RG1070 Fusion of Cervical Vertebral Joint with Autologous Tissue Substitute, Anterior Approach, Anterior Column, Open Approach (ICD-10-PCS; principal; 2018-03-14)
PROC: 0RG10J0 Fusion of Cervical Vertebral Joint with Synthetic Substitute, Anterior Approach, Anterior Column, Open Approach (ICD-10-PCS; 2018-03-14)
PROC: 0RB30ZZ Excision of Cervical Vertebral Disc, Open Approach (ICD-10-PCS; 2018-03-14)
DX: M50.00 Cervical disc disorder with myelopathy, unspecified cervical region (principal); Z88.0 Allergy status to penicillin; Z88.8 Allergy status to other drugs, medicaments and biological substances; I25.2 Old myocardial infarction; E78.5 Hyperlipidemia, unspecified; I10 Essential (primary) hypertension; Z85.46 Personal history of malignant neoplasm of prostate
CPT/HCPCS: 36415; 36416; 70450; 76001; 80053; 82550; 82553; 84484; 85025; 85610; 85730; 93005; A4216; J1956; J2250; J2405; J2550; J3010; J3490

== ENCOUNTER 2018-05-10 13:35 | Outpatient (CLI) | payer BC ==
--- NOTE | 2018-05-10 15:58 | RAD ---
CERVICAL SPINE FOUR VIEWS: History: Spondylosis with myelopathy. Previous cervical spine surgery. Comparison: None. FINDINGS: There is no prevertebral soft tissue swelling. Pre dental space is normal. Intact odontoid process. O n the open mouth projection, lateral masses of C1-2 articulate appropriate. The bases of the odontoid process is intact. Tip of the odontoid process is obscured. Cervical spine vertebral body height is maintained. There is no evidence of fracture. There is evidence of previous cervical fusion at C3 and C4. No perihardware lucency. Disc prosthesis at the C3-4 disc space level. There is grade I retrolis thesis of C3 upon C4. Moderate degenerative disc disease at C5-6 and C6-7. On the AP projection, there is mild degenerative change of the facets. IMPRESSION: 1. Uncomplicated cervical fusion hardware. 2. Extensive degenerative changes of the cervical spine. There is significant degenerative disc disea se at C5-6 and C6-7. POS: [facility]
== END 2018-05-10 13:36 | disposition home or self-care (01) ==
LOC: TBSIIMAG 13:35
PROVIDERS: ATTEND Neurological Surgery
DX: M47.12 Other spondylosis with myelopathy, cervical region (principal); M50.022 Cervical disc disorder at C5-C6 level with myelopathy
CPT/HCPCS: 72040

== ENCOUNTER 2019-07-06 00:18 | Inpatient (IN) | payer BC, MEDICARE ==
[2019-07-06] MEDS ORDERED: Aspirin Chewable 81 MG TAB ONE (00:31)
[2019-07-06] MEDS ORDERED: Nitroglycerin 2% Ointment 1 INCH/1 GM Packet ONE (00:31)
[2019-07-06] MEDS ORDERED: Ondansetron PF 4 MG/2 ML Vial ONE ×2 (00:47→01:00)
[2019-07-06] MEDS ORDERED: Morphine 10 MG/ML VIAL ONE (00:47)
[2019-07-06 01:05] LABS: ALT (SGPT) 17 U/L (8-55); AST (SGOT) 17 U/L (5-34); Albumin 4.3 g/dL (3.4-4.8); Alkaline Phosphatase 89 U/L (40-110); Anion Gap 16 mmol/L (10-20); BUN (Urea Nitrogen) 14 mg/dL (8.4-25.7); Bilirubin, Total 0.3 mg/dL (0.2-1.2); CK (CPK) 139 U/L (30-200); Calc. Creatinine Clearance 0 mL/min (70-130); Calcium 9.3 mg/dL (7.8-10.44); Carbon Dioxide 23 mmol/L (23-31); Chloride 107 mmol/L (98-107); Estimated GFR-MDRD 69; Globulin 2.4 g/dL (2.4-3.5); Glucose 108 mg/dL (80-115); Lipase 36 U/L (8-78); Potassium 4.2 mmol/L (3.5-5.1); Protein, Total 6.7 g/dL (5.8-8.1); Sodium 142 mmol/L (136-145)
[2019-07-06 01:06] LABS: #Basophils 0.1 thou/uL (0.0-0.2); #Eosinphils 0.2 thou/uL (0.0-0.7); #Lymphocytes 3.2 thou/uL (1.20-3.40); #Monocytes 0.8 thou/uL (0.11-0.59); #Neutrophils 4.4 thou/uL (1.40-6.50); %Basophils 1.5 % (0.0-1.0); %Lymphocytes 36.9 % (21.0-51.0); %Monocytes 8.9 % (0.0-10.0); %Neutrophils 50.7 % (42.0-75.0); Hemoglobin 13.3 g/dL (14.0-18.0); Mean Corpuscular Hemoglobin 26.5 pg (27.0-31.0); Mean Corpuscular Volume 82.8 fL (78.0-98.0); Platelet Count 255 thou/uL (130-400); RBC Distribution Width 15.1 % (11.5-14.5); Red Blood Cell (RBC) Count 5.03 mill/uL (4.70-6.10); White Blood Cell (WBC) Count 8.6 thou/uL (4.8-10.8)
[2019-07-06] MEDS ORDERED: Enoxaparin Sodium 100 MG/ML SYRINGE ONE (01:13)
[2019-07-06 02:54] VITALS: BMI 28.5
[2019-07-06] MEDS ORDERED: Ondansetron PF 4 MG/2 ML Vial IVP PRN (02:54)
[2019-07-06] MEDS ORDERED: HYDROcodone/Acetaminophen 5/325 mg Tablet PO PRN (02:54)
[2019-07-06] MEDS ORDERED: Morphine 2 MG/ML SYRINGE SLOW IVP PRN (02:57)
[2019-07-06] MEDS ORDERED: hydrALAZINE 20 MG/ML VIAL SLOW IVP PRN (02:57)
[2019-07-06] MEDS ORDERED: Nitroglycerin 0.4 MG TAB (25 Tab Bottle) SL PRN (02:57)
[2019-07-06] MEDS ORDERED: Rosuvastatin 5 MG TAB PO SCH (03:06)
[2019-07-06] MEDS: Morphine 2 MG/ML SYRINGE SLOW IVP PRN ×2 (03:47→08:06)
[2019-07-06 04:10] LABS: Troponin I Less than 0.010 ng/mL (< 0.028)
[2019-07-06 04:12] LABS: Band 1 % (5-11); Hemoglobin 12.3 g/dL (14.0-18.0); Hypochromia SLIGHT = 6-15 cells (100X) (0-5/hpf); Lymphocytes 22 % (21-51); MDiff Complete? YES; Mean Corpuscular Hemoglobin 26.7 pg (27.0-31.0); Mean Corpuscular Volume 80.9 fL (78.0-98.0); Mean Platelet Volume 8.2 fL (7.4-10.4); Metamyelocyte 1 % (0-0); Monocytes 1 % (0-10); Neutrophil 75 % (42-75); Platelet Count 244 thou/uL (130-400); Platelet Morphology Comment Appears Adequate; RBC Distribution Width 14.8 % (11.5-14.5); Red Blood Cell (RBC) Count 4.59 mill/uL (4.70-6.10); White Blood Cell (WBC) Count 10.5 thou/uL (4.8-10.8)
--- NOTE | 2019-07-06 04:12 | HP ---
PRESENTING COMPLAINT: Chest pain. HISTORY OF PRESENT ILLNESS: Ave Hernandez is a 64-year-old male with past medical history of hypertension, coronary artery disease, status post CABG one year ago with no recurrent chest pain since then. History of atrial fibrillation on amiodarone, hyperlipidemia, diastolic CHF, developed sudden onset chest pain while sitting in the office today. The pain was more creepy and located in the left side of the chest. No radiating. The patient's pain continued throughout the rest of the day. The patient was stable to exercise including running 1 mile on the treadmill during this period of the persistent chest pain. However, after the patient went to sleep this a.m., the patient woke up with worsening of the pain symptoms, and presented to the ED. EKG shows T-wave inversion. Echo done was unremarkable. Initial set of cardiac enzymes negative. The patient feels much better now. After nitroglycerin was given at the emergency room. He rates pain at about 3 to 4/10 down from 8/10 at presentation. PAST MEDICAL HISTORY: Significant for coronary artery disease, status post CABG one year ago. Follows with Dr. Cross. Hypertension, hyperlipidemia, and history of atrial fibrillation. FAMILY HISTORY: Noncontributory. ALLERGIES: PENICILLIN, STATIN. SOCIAL HISTORY: Residing in community with his spouse. History of occasional alcohol use. No history of illicit drug use. No history of tobacco smoke. HOME MEDICATIONS: Reviewed. See MAR. REVIEW OF SYSTEMS: All systems reviewed x14 were negative except as mentioned above. PHYSICAL EXAMINATION: VITAL SIGNS: Current vitals, blood pressure of 134/72, pulse 57, respiratory rate of 18, O2 saturation 98% on room air, and temp 98. GENERAL: Middle-aged male, not in any distress. NECK: No JVD. No carotid bruit. RESPIRATORY: Good air entry bilaterally. CARDIOVASCULAR: S1, S2. Rate and rhythm regular. Midline sternotomy scar, well healed. ABDOMEN: Full, soft, nontender. Bowel sounds positive. EXTREMITIES: No calf tenderness. No pedal edema. NEURO: The patient is alert and oriented. Cranial nerves 2 through 12 grossly intact. LABORATORY DATA: WBC 8.6, hemoglobin 13, and platelets 255. Sodium 142 and potassium 4.2. Troponin 0.02. Lipase 36. Creatinine 1.0. IMPRESSION: 1. Atypical chest pain, rule out acute coronary syndrome. We will admit the patient to observation on telemetry floor. We will consult Cardiology. We will do serial set of cardiac enzyme. If increasing cardiac enzymes, we will transfer to CCU and plan for cardiac cath in a.m. If negative set of cardiac enzymes, possibility of stress test by inpatient consult will be considered. Continue nitro. We place nitroglycerin patch now, was to give morphine for pain relief. 2. Hypertension, controlled. Continue home regimen. 3. Hyperlipidemia. Continue Evolocumab for high lipid level. 4. Deep vein thrombosis prophylaxis. Continue subcutaneous heparin/Lovenox. ADVANCED DIRECTIVES: The patient is full code. Total time spent on review of record, discussion with the patient, and evaluation greater than 60 minutes. Job ID: [id number]
[2019-07-06] MEDS: Acetaminophen 325 MG TAB PO PRN ×3 (05:08→20:16)
[2019-07-06 06:48] LABS: Troponin I 0.029 ng/mL (< 0.028)
[2019-07-06] MEDS: Gabapentin 300 MG CAP PO SCH ×2 (08:11→14:55)
[2019-07-06] MEDS: Amiodarone 200 MG TAB PO SCH ×2 (08:13→14:55)
[2019-07-06] MEDS: Aspirin 81 mg Enteric Coated Tablet PO SCH (08:13)
[2019-07-06] MEDS: Fish Oil 1,000 MG CAP PO SCH ×2 (08:13→20:16)
[2019-07-06] MEDS: Allopurinol 300 MG TAB PO SCH (08:13)
[2019-07-06] MEDS: Amlodipine 5 mg/Benazepril 20 mg CAP PO SCH (08:13)
[2019-07-06] MEDS: Torsemide 10 MG TAB PO SCH (08:14)
[2019-07-06] MEDS: Clopidogrel Bisulfate 75 MG TAB PO SCH (08:14)
--- NOTE | 2019-07-06 08:22 | RAD ---
XR Chest 1 View HISTORY: Chest pain, CABG COMPARISON: 02/04/2018 FINDINGS: The heart size is normal. Changes of median sternotomy are present. The lungs are well expa nded without focal areas of consolidation, pneumothorax or pleural effusions. Postop changes of bilateral rotator cuff repair are noted. IMPRESSION: No radiographic evidence of acute cardiopulmonary process.
[2019-07-06] MEDS ORDERED: Tadalafil [Cialis] 20 MG PO SCH (09:00)
[2019-07-06] MEDS ORDERED: COLESEVELAM HCL PO SCH (09:00)
[2019-07-06] MEDS ORDERED: Enoxaparin Sodium 40 MG/0.4 ML SYRINGE SC SCH ×2 (09:00→09:14)
[2019-07-06] MEDS ORDERED: Prevnar 13-Val Conj/PF 0.5 ML SYRINGE IM ONE (09:00)
[2019-07-06] MEDS ORDERED: Enoxaparin Sodium 100 MG/ML SYRINGE SC SCH ×2 (10:15→13:15)
[2019-07-06 14:57] LABS: CKMB 1.6 ng/mL (0-6.6)
--- NOTE | 2019-07-06 18:41 | PRG ---
DATE OF SERVICE: 07/06/2019 SUBJECTIVE: Mr. Dorado is a gentleman, who has had previous coronary artery bypass grafting, had the onset of severe chest pain in left side of his chest and the left arm, typical of angina. EKGs I reviewed and it looked normal. He is feeling fine now. He did have severe pain, however. OBJECTIVE: VITAL SIGNS: Blood pressure is 113/64, pulse 56 and regular. LUNGS: Clear. CARDIAC: Normal S1, normal S2. ABDOMEN: Soft and nontender. EXTREMITIES: There is no edema. ASSESSMENT: 1. Chest pain, compatible with angina. 2. Previous bypass surgery. PLAN: A Cardiolite stress testing tomorrow to further risk stratify. Job ID: [id number]
[2019-07-06] MEDS: Ezetimibe 10 MG TAB PO SCH (20:16)
[2019-07-07 05:11] LABS: #Basophils 0.1 thou/uL (0.0-0.2); #Eosinphils 0.2 thou/uL (0.0-0.7); #Lymphocytes 2.3 thou/uL (1.20-3.40); #Monocytes 0.7 thou/uL (0.11-0.59); #Neutrophils 4.2 thou/uL (1.40-6.50); %Basophils 0.9 % (0.0-1.0); %Eosinophils 2.5 % (0.0-10.0); %Lymphocytes 30.8 % (21.0-51.0); %Monocytes 9.6 % (0.0-10.0); %Neutrophils 56.2 % (42.0-75.0); Hemoglobin 12.6 g/dL (14.0-18.0); Mean Corpuscular HGB CONC 33.6 g/dL (32.0-36.0); Mean Corpuscular Hemoglobin 27.2 pg (27.0-31.0); Mean Corpuscular Volume 80.8 fL (78.0-98.0); Mean Platelet Volume 8.5 fL (7.4-10.4); Platelet Count 221 thou/uL (130-400); RBC Distribution Width 14.8 % (11.5-14.5); Red Blood Cell (RBC) Count 4.64 mill/uL (4.70-6.10); White Blood Cell (WBC) Count 7.4 thou/uL (4.8-10.8)
[2019-07-07 05:34] LABS: ALT (SGPT) 14 U/L (8-55); AST (SGOT) 15 U/L (5-34); Albumin 3.8 g/dL (3.4-4.8); Alkaline Phosphatase 72 U/L (40-110); Anion Gap 10 mmol/L (10-20); BUN (Urea Nitrogen) 16 mg/dL (8.4-25.7); Bilirubin, Total 0.7 mg/dL (0.2-1.2); Calc. Creatinine Clearance 88 mL/min (70-130); Calcium 8.9 mg/dL (7.8-10.44); Carbon Dioxide 27 mmol/L (23-31); Chloride 105 mmol/L (98-107); Estimated GFR-MDRD 65; Globulin 2.1 g/dL (2.4-3.5); Glucose 97 mg/dL (80-115); Potassium 4.1 mmol/L (3.5-5.1); Protein, Total 5.9 g/dL (5.8-8.1); Sodium 138 mmol/L (136-145)
[2019-07-07] MEDS: Fish Oil 1,000 MG CAP PO SCH ×2 (08:29→19:24)
[2019-07-07] MEDS: Torsemide 10 MG TAB PO SCH (08:29)
[2019-07-07] MEDS: Clopidogrel Bisulfate 75 MG TAB PO SCH (08:29)
[2019-07-07] MEDS: Aspirin 81 mg Enteric Coated Tablet PO SCH (08:29)
[2019-07-07] MEDS: Amlodipine 5 mg/Benazepril 20 mg CAP PO SCH (08:29)
[2019-07-07] MEDS: Allopurinol 300 MG TAB PO SCH (08:30)
[2019-07-07] MEDS ORDERED: Enoxaparin Sodium 100 MG/ML SYRINGE SC SCH (09:00)
--- NOTE | 2019-07-07 13:27 | NM ---
NUCLEAR MEDICINE CARDIAC STRESS WITH EF AND WALL MOTION: HISTORY: Chest pain. COMPARISON: None. TECHNIQUE: The patient was administered 10.2 mCi of technetium 99m sestamibi for rest imaging and 27.8 mCi of te chnetium 99m sestamibi for stress imaging. Cardiac gating was performed. FINDINGS: Small focus of reversibility involving the mid inferior wall. TID: 1.04 End-diastolic volume: 114 mL End-systolic volume: 53 mL Cardiac gating: Normal wall motion and thickening. Ejection fraction: 54% IMPRESSION: 1. Small focus of reversibility involving the mid inferior wall. 2. Ejection fraction 54%. Transcribed Date/Time: 07/07/2019 1:34 PM
[2019-07-07] MEDS ORDERED: Communication Order-Pharmacy FS SCH (18:15)
[2019-07-07] MEDS: Ezetimibe 10 MG TAB PO SCH (19:24)
--- NOTE | 2019-07-07 23:20 | PDOC.HOSPP ---
- Subjective Encounter Date: 07/07/19 Encounter Time: 16:00 Subjective: Patient seen and examined for CP/USA. CP improviing. No bleeding. No SOB or palpitations. No new complaints. No overnight events - Objective Vital Signs & Weight: Vital Signs (12 hours) Temp Pulse Resp BP Pulse Ox 07/07/19 19:48 98.6 F 75 16 112/67 95 07/07/19 19:20 95 07/07/19 15:22 98.3 F 68 16 126/80 99 07/07/19 12:15 97.7 F 82 18 129/77 99 Weight Weight 214 lb 3.2 oz I&O: 07/06/19 07/07/19 07/08/19 06:59 06:59 06:59 Intake Total 1310 850 Output Total 151 Balance 1159 850 Result Diagrams: 07/07/19 04:56 07/07/19 04:56 EKG Reviewed by me: Yes (Tele SR) Hospitalist ROS - Review of Systems Constitutional: denies: fever, chills, sweats, weakness, malaise, other Gastrointestinal: denies: nausea, vomiting, abdominal pain, diarrhea, constipation, melena, hematochezia, other Genitourinary: denies: dysuria, frequency, incontinence, hematuria, retention, other - Medication Medications: Active Medications Generic Name Dose Route Start Last Admin Trade Name Freq PRN Reason Stop Dose Admin Acetaminophen 650 mg 07/06/19 03:17 07/06/19 20:16 Tylenol PO 650 mg Q4H PRN Administration Headache/Fever or Pain Allopurinol 300 mg 07/06/19 09:00 07/07/19 08:30 Zyloprim PO 300 mg DAILY CHUCK Administration Amlodipine/Benazepril HCl 1 cap 07/06/19 09:00 07/07/19 08:29 Lotrel 5/20 PO 1 cap DAILY CHUCK Administration Aspirin 81 mg 07/06/19 09:00 07/07/19 08:29 Ecotrin PO 81 mg DAILY CHUCK Administration Clopidogrel Bisulfate 75 mg 07/06/19 09:00 07/07/19 08:29 Plavix PO 75 mg DAILY CHUCK Administration Ezetimibe 10 mg 07/06/19 21:00 07/07/19 19:24 Zetia PO 10 mg HS CHUCK Administration Enoxaparin Sodium 100 mg 07/07/19 09:00 07/07/19 08:29 Lovenox SC 07/07/19 23:59 100 mg 0900 CHUCK Administration Fish Oil 1,000 mg 07/06/19 09:00 07/07/19 19:24 Fish Oil PO 1,000 mg BID CHUCK Administration Morphine Sulfate 1 mg 07/06/19 03:17 07/06/19 08:06 Morphine SLOW IVP 1 mg Q4H PRN Administration Moderate Pain (4-6) Pantoprazole Sodium 40 mg 07/06/19 09:00 07/07/19 19:24 Protonix PO 40 mg BID CHUCK Administration Sodium Chloride 10 ml 07/06/19 21:00 07/07/19 19:28 Flush - Normal Saline IVF 10 ml Q12HR CHUCK Administration Torsemide 10 mg 07/06/19 09:00 07/07/19 08:29 Demadex PO 10 mg DAILY CHUCK Administration - Exam General Appearance: NAD Neck: supple, no JVD Heart: RRR, no gallops Respiratory: CTAB, no rales Gastrointestinal: soft, non-tender, normal bowel sounds Extremities: no edema Hosp A/P - Plan DVT proph w/SCDs CP/Unstable angina CAD s/p CABG HTN HLD Par Afib PLAN: Stress test abnormal Cath in AM Cont ASA/Plavix/Statins Cont other meds
[2019-07-08] MEDS ORDERED: Sodium Chloride 0.9% 1,000 ML IV SCH (06:00)
[2019-07-08] MEDS ORDERED: Diazepam 5 MG TAB PO SCH (06:00)
[2019-07-08] MEDS: Aspirin 81 mg Enteric Coated Tablet PO SCH (06:09)
[2019-07-08] MEDS: Clopidogrel Bisulfate 75 MG TAB PO SCH (06:09)
[2019-07-08] MEDS: Allopurinol 300 MG TAB PO SCH (06:10)
[2019-07-08] MEDS: Amlodipine 5 mg/Benazepril 20 mg CAP PO SCH (06:12)
[2019-07-08] MEDS: Fish Oil 1,000 MG CAP PO SCH (06:12)
[2019-07-08] MEDS ORDERED: Heparin (Artline) 1,000 ML ONE (06:32)
[2019-07-08] MEDS ORDERED: Fentanyl 100 MCG/2 ML VIAL ONE ×2 (06:33→08:05)
[2019-07-08] MEDS ORDERED: Lidocaine 1% (PF) 30 ML VIAL ONE (06:33)
[2019-07-08] MEDS ORDERED: Midazolam HCl 2 mg/2 ml Vial ONE ×2 (06:33→07:55)
[2019-07-08] MEDS ORDERED: Nitroglycerin 0.4 MG TAB (25 Tab Bottle) SL PRN (08:27)
[2019-07-08] MEDS ORDERED: Acetaminophen/Codeine 30-300mg Tablet PO PRN ×2 (08:27)
[2019-07-08] MEDS ORDERED: Sodium Chloride 0.9% 200 ML IV PRN (08:27)
[2019-07-08] MEDS ORDERED: Metoprolol Tartrate 25 MG TAB PO SCH (09:00)
[2019-07-08] MEDS ORDERED: Rosuvastatin 5 MG TAB PO SCH (09:00)
[2019-07-08] MEDS ORDERED: Polyethylene Glycol 3350 17 GM Packet PO PRN (11:06)
[2019-07-08] MEDS ORDERED: Iopamidol 370 76% 100 ML VIAL ONE (11:28)
[2019-07-08] MEDS: Torsemide 10 MG TAB PO SCH (13:10)
[2019-07-08 15:32] VITALS: BP 116/64; TEMP 97.7
--- NOTE | 2019-07-08 17:14 | PRG ---
DATE OF SERVICE: 07/08/2019 Mr. Dorado underwent cardiac catheterization today. It revealed that he has a patent internal mammary to the LAD, no obstructive disease in the circumflex, and occluded right coronary artery with an occluded graft, but the right fills via collaterals. Ejection fraction is normal. Medical therapy is the appropriate choice. He will go home on the same medicines he came in on with the addition of nitroglycerin if needed. I will see this in the office in a few weeks. I had a discussion about the importance of warming up slowly when he exerts himself to avoid angina and take nitroglycerin if needed. If he still has angina, we could add Ranexa. He takes Cialis intermittently; therefore, we would avoid long-acting nitrates. Job ID: [id number]
--- NOTE | 2019-07-09 03:17 | DIS ---
DATE OF ADMISSION: 07/07/2019 DATE OF DISCHARGE: 07/08/2019 DISCHARGE DISPOSITION: Home. FOLLOWUP: 1. Follow up with primary care physician, Dr. Zaid Trevino, in 1 week. 2. Follow up with Dr. Cross as scheduled. DISCHARGE MEDICATIONS: Same as admission medication. Patient was seen and examined on the day of discharge. Denies any new complaints. No chest pain or shortness of breath reported. BRIEF HOSPITAL COURSE: Patient is a 64-year-old male with hypertension; coronary artery disease, status post CABG; and hyperlipidemia, presented to the emergency room with chest discomfort. Please refer to the history and physical for further details. The patient was admitted to the hospital with a diagnosis of chest pain consistent with unstable angina. He was started on 1 mg/kg Lovenox. Aspirin and Plavix were continued. He was evaluated by Cardiology, Dr. Cross. Dr. Cross recommended a stress test that showed small focus of reversibility involving the mid inferior wall with ejection fraction of 54%. He underwent a cardiac catheterization that showed occluded right coronary artery with occluded graft with good collateral. Medical therapy was recommended. He has been cleared by Cardiology for discharge. FINAL DIAGNOSES: 1. Chest discomfort consistent with unstable angina. 2. Coronary artery disease, status post multiple stent placements. 3. History of coronary artery bypass grafting. 4. Hypertension. 5. Hyperlipidemia. 6. Paroxysmal atrial fibrillation. 7. Chronic anemia. 8. Statin allergy. 9. Chronic kidney disease, stage 2. 10. Please note that statins were not prescribed due to allergy. Job ID: [id number]
== END 2019-07-08 17:44 | disposition home or self-care (01) | DRG 287 ==
LOC: SCSER 00:18 → 2SW 02:04 → 2NO 07-07 14:34 → 2SW 07-07 14:43 → OBSVTOIN 07-07 23:50
PROVIDERS: ADMIT Internal Medicine; ATTEND Internal Medicine
PROC: 3E0234Z Introduction of Serum, Toxoid and Vaccine into Muscle, Percutaneous Approach (ICD-10-PCS; 2019-07-06)
PROC: 4A023N7 Measurement of Cardiac Sampling and Pressure, Left Heart, Percutaneous Approach (ICD-10-PCS; principal; 2019-07-08)
PROC: B2111ZZ Fluoroscopy of Multiple Coronary Arteries using Low Osmolar Contrast (ICD-10-PCS; 2019-07-08)
PROC: B2151ZZ Fluoroscopy of Left Heart using Low Osmolar Contrast (ICD-10-PCS; 2019-07-08)
PROC: B2121ZZ Fluoroscopy of Single Coronary Artery Bypass Graft using Low Osmolar Contrast (ICD-10-PCS; 2019-07-08)
PROC: B2181ZZ Fluoroscopy of Left Internal Mammary Bypass Graft using Low Osmolar Contrast (ICD-10-PCS; 2019-07-08)
DX: I25.110 Atherosclerotic heart disease of native coronary artery with unstable angina pectoris (principal); I50.32 Chronic diastolic (congestive) heart failure; T82.218A Other mechanical complication of coronary artery bypass graft, initial encounter; I13.0 Hypertensive heart and chronic kidney disease with heart failure and stage 1 through stage 4 chronic kidney disease, or unspecified chronic kidney disease; Z23 Encounter for immunization; E78.5 Hyperlipidemia, unspecified; E78.00 Pure hypercholesterolemia, unspecified; I48.0 Paroxysmal atrial fibrillation; D63.1 Anemia in chronic kidney disease; Y83.2 Surgical operation with anastomosis, bypass or graft as the cause of abnormal reaction of the patient, or of later complication, without mention of misadventure at the time of the procedure; N18.2 Chronic kidney disease, stage 2 (mild); Z95.1 Presence of aortocoronary bypass graft; I25.2 Old myocardial infarction; Z85.46 Personal history of malignant neoplasm of prostate; Z95.5 Presence of coronary angioplasty implant and graft; Z88.0 Allergy status to penicillin; Z88.8 Allergy status to other drugs, medicaments and biological substances; Z79.82 Long term (current) use of aspirin; Z79.899 Other long term (current) drug therapy; Z79.02 Long term (current) use of antithrombotics/antiplatelets
CPT/HCPCS: 36415; 71045; 76942; 78452; 80053; 82550; 82553; 83690; 83735; 84484; 85025; 90471; 90670; 93005; 93017; 93459; 96374; 96375; 99152; 99153; A9500; C1769; G0009; J1644; J1650; J2001; J2250; J2270; J2405; J3010; Q9967

== ENCOUNTER 2019-07-17 00:13 | Emergency (ER) | payer BC, MEDICARE ==
[2019-07-17 00:50] LABS: #Basophils 0.1 thou/uL (0.0-0.2); #Eosinphils 0.2 thou/uL (0.0-0.7); #Lymphocytes 2.6 thou/uL (1.20-3.40); #Monocytes 0.9 thou/uL (0.11-0.59); #Neutrophils 4.4 thou/uL (1.40-6.50); %Basophils 0.6 % (0.0-1.0); %Eosinophils 2.9 % (0.0-10.0); %Lymphocytes 31.4 % (21.0-51.0); %Monocytes 11.4 % (0.0-10.0); %Neutrophils 53.7 % (42.0-75.0); Mean Corpuscular HGB CONC 33.8 g/dL (32.0-36.0); Mean Corpuscular Hemoglobin 27.6 pg (27.0-31.0); Mean Corpuscular Volume 81.5 fL (78.0-98.0); Mean Platelet Volume 8.8 fL (7.4-10.4); Platelet Count 240 thou/uL (130-400); RBC Distribution Width 14.9 % (11.5-14.5); Red Blood Cell (RBC) Count 4.72 mill/uL (4.70-6.10); White Blood Cell (WBC) Count 8.2 thou/uL (4.8-10.8)
[2019-07-17 01:09] LABS: ALT (SGPT) 18 U/L (8-55); AST (SGOT) 16 U/L (5-34); Albumin 4.2 g/dL (3.4-4.8); Alkaline Phosphatase 92 U/L (40-110); Anion Gap 12 mmol/L (10-20); BUN (Urea Nitrogen) 14 mg/dL (8.4-25.7); Bilirubin, Total 0.3 mg/dL (0.2-1.2); Calc. Creatinine Clearance 0 mL/min (70-130); Calcium 9.1 mg/dL (7.8-10.44); Carbon Dioxide 25 mmol/L (23-31); Chloride 103 mmol/L (98-107); Estimated GFR-MDRD 64; Globulin 2.7 g/dL (2.4-3.5); Glucose 152 mg/dL (80-115); Potassium 4.2 mmol/L (3.5-5.1); Protein, Total 6.9 g/dL (5.8-8.1); Sodium 136 mmol/L (136-145)
--- NOTE | 2019-07-17 09:19 | RAD ---
CHEST 1 VIEW: INDICATION: History of chest pain. COMPARISON: Prior exam dated 07/06/2019. IMPRESSION: Chronic obstructive pulmonary disease change and mild cardiomegaly is stable. No consolidation is ev ident. Costophrenic angles are excluded. No pneumothorax is demonstrated. Postoperative change of the left proximal humerus and midline sternum is stable. POS: BH
== END 2019-07-17 02:34 | disposition home or self-care (01) ==
LOC: ERS 00:13
DX: I25.119 Atherosclerotic heart disease of native coronary artery with unspecified angina pectoris (principal); I10 Essential (primary) hypertension; E78.5 Hyperlipidemia, unspecified; I25.2 Old myocardial infarction; E78.00 Pure hypercholesterolemia, unspecified; Z79.899 Other long term (current) drug therapy; Z79.82 Long term (current) use of aspirin
CPT/HCPCS: 36415; 71045; 80053; 84484; 85025; 93005; 94760

== ENCOUNTER 2021-12-25 15:16 | Emergency (ER) | payer MEDICARE, OTHER ==
[2021-12-25 15:56] LABS: #Basophils 0.1 thou/uL (0.0-0.2); #Eosinphils 0.1 thou/uL (0.0-0.7); #Lymphocytes 2.2 thou/uL (1.20-3.40); #Monocytes 0.6 thou/uL (0.11-0.59); #Neutrophils 3.6 thou/uL (1.40-6.50); %Basophils 1.1 % (0.0-1.0); %Eosinophils 1.3 % (0.0-10.0); %Lymphocytes 34.1 % (21.0-51.0); %Neutrophils 54.5 % (42.0-75.0); Hemoglobin 13.8 g/dL (14.0-18.0); Mean Corpuscular Volume 94.1 fL (78.0-98.0); Mean Platelet Volume 8.4 fL (7.4-10.4); Platelet Count 247 thou/uL (130-400); RBC Distribution Width 12.6 % (11.5-14.5); Red Blood Cell (RBC) Count 4.44 mill/uL (4.70-6.10); White Blood Cell (WBC) Count 6.6 thou/uL (4.8-10.8)
[2021-12-25] MEDS ORDERED: Dexamethasone 4 mg/ml Vial ONE (16:03)
[2021-12-25] MEDS ORDERED: Lorazepam 2 MG/ML VIAL ONE (16:03)
[2021-12-25] MEDS ORDERED: Ondansetron PF 4 MG/2 ML Vial ONE (16:03)
[2021-12-25] MEDS ORDERED: Meclizine HCl 25 MG TAB ONE (16:06)
[2021-12-25] MEDS ORDERED: Dexamethasone 10 MG/ML VIAL ONE (16:12)
[2021-12-25 16:17] LABS: ALT (SGPT) 16 U/L (8-55); AST (SGOT) 14 U/L (5-34); Albumin 4.3 g/dL (3.4-4.8); Alkaline Phosphatase 65 U/L (40-110); Anion Gap 13 mmol/L (10-20); BUN (Urea Nitrogen) 21 mg/dL (8.4-25.7); Bilirubin, Total 0.5 mg/dL (0.2-1.2); CK (CPK) 70 U/L (30-200); Calc. Creatinine Clearance 0 mL/min (70-130); Calcium 9.3 mg/dL (7.8-10.44); Carbon Dioxide 25 mmol/L (23-31); Chloride 101 mmol/L (98-107); Globulin 2.1 g/dL (2.4-3.5); Glucose 127 mg/dL (80-115); Lipase 31 U/L (8-78); Potassium 4.2 mmol/L (3.5-5.1); Protein, Total 6.4 g/dL (5.8-8.1); Sodium 135 mmol/L (136-145)
== END 2021-12-25 17:48 | disposition home or self-care (01) ==
LOC: ERS 15:16
DX: H81.13 Benign paroxysmal vertigo, bilateral (principal); I10 Essential (primary) hypertension; E78.5 Hyperlipidemia, unspecified; E78.00 Pure hypercholesterolemia, unspecified; I25.2 Old myocardial infarction; Z85.46 Personal history of malignant neoplasm of prostate; Z79.82 Long term (current) use of aspirin; Z79.899 Other long term (current) drug therapy
CPT/HCPCS: 70450; 80053; 82550; 83690; 84484; 85025; 93005; 96365; 96375; J1100; J2060; J2405

== ENCOUNTER 2022-09-22 15:52 | Inpatient (IN) | payer MEDICARE, OTHER ==
[2022-09-22] MEDS ORDERED: Ondansetron PF 4 MG/2 ML Vial IVP PRN (16:52)
[2022-09-22] MEDS ORDERED: Nitroglycerin 0.4 MG TAB (25 Tab Bottle) SL PRN (16:56)
[2022-09-22 17:46] LABS: Troponin I 0.011 ng/mL (< 0.028)
[2022-09-22 18:04] VITALS: BMI 37.5
[2022-09-22] MEDS: Acetaminophen 325 MG TAB PO PRN (19:12)
[2022-09-22 20:12] LABS: Troponin I Less than 0.010 ng/mL (< 0.028)
[2022-09-22] MEDS ORDERED: traMADol HCl 50 MG TAB PO SCH (21:15)
[2022-09-22] MEDS: Rosuvastatin 5 MG TAB PO SCH (21:30)
[2022-09-22] MEDS: Metoprolol Tartrate 25 MG TAB PO SCH (21:34)
[2022-09-22] MEDS ORDERED: Ketorolac Tromethamine 30 MG/ML VIAL IVP SCH (23:00)
[2022-09-23 05:46] LABS: Anion Gap 13 mmol/L (10-20); BUN (Urea Nitrogen) 24 mg/dL (8.4-25.7); Calc. Creatinine Clearance 89 mL/min (70-130); Calcium 8.9 mg/dL (7.8-10.44); Carbon Dioxide 24 mmol/L (23-31); Chloride 103 mmol/L (98-107); Estimated GFR 53; Glucose 114 mg/dL (80-115); Sodium 136 mmol/L (136-145)
[2022-09-23 05:49] LABS: #Eosinphils 0.1 thou/uL (0.0-0.7); #Lymphocytes 2.4 thou/uL (1.20-3.40); #Monocytes 0.8 thou/uL (0.11-0.59); #Neutrophils 2.3 thou/uL (1.40-6.50); %Basophils 0.8 % (0.0-1.0); %Eosinophils 1.8 % (0.0-10.0); %Lymphocytes 42.5 % (21.0-51.0); %Monocytes 14.7 % (0.0-10.0); %Neutrophils 40.2 % (42.0-75.0); Hemoglobin 13.8 g/dL (14.0-18.0); Mean Corpuscular HGB CONC 33.4 g/dL (32.0-36.0); Mean Platelet Volume 8.8 fL (7.4-10.4); Platelet Count 193 10x3/uL (130-400); RBC Distribution Width 12.5 % (11.5-14.5); Red Blood Cell (RBC) Count 4.59 mill/uL (4.70-6.10); White Blood Cell (WBC) Count 5.6 10x3/uL (4.8-10.8)
[2022-09-23] MEDS: Acetaminophen 325 MG TAB PO PRN (07:50)
[2022-09-23] MEDS: Aspirin 81 mg Enteric Coated Tablet PO SCH (10:31)
[2022-09-23] MEDS: Metoprolol Tartrate 25 MG TAB PO SCH (10:31)
[2022-09-23] MEDS: HYDROcodone/Acetaminophen 10/325 mg Tablet PO PRN ×2 (13:08→20:52)
[2022-09-23] MEDS ORDERED: Rosuvastatin 5 MG TAB PO SCH (16:45)
[2022-09-23] MEDS ORDERED: Communication Order-Pharmacy FS SCH (18:15)
[2022-09-23] MEDS ORDERED: Melatonin 3 MG TAB PO PRN (20:36)
[2022-09-23] MEDS: Fish Oil 1,000 MG CAP PO SCH (20:52)
[2022-09-23] MEDS ORDERED: Torsemide 10 MG TAB PO SCH (21:00)
[2022-09-24] MEDS: Sodium Chloride 0.9% 1,000 ML IV SCH ×2 (05:55→17:26)
[2022-09-24] MEDS ORDERED: Lidocaine 1% (PF) 30 ML VIAL ONE (08:13)
[2022-09-24] MEDS ORDERED: Heparin 10,000 UNITS/ 10 ML VIAL ONE (08:13)
[2022-09-24] MEDS ORDERED: Spironolactone 25 MG TAB PO SCH (09:00)
[2022-09-24] MEDS ORDERED: FENTANYL 50 MCG/ML 1 ML VIAL ONE ×2 (09:07→09:56)
[2022-09-24] MEDS ORDERED: Midazolam HCl 2 mg/2 ml Vial ONE ×2 (09:07→09:29)
[2022-09-24] MEDS: Fish Oil 1,000 MG CAP PO SCH ×2 (10:55→20:55)
[2022-09-24] MEDS: Lisinopril 10 MG TAB PO SCH (10:57)
[2022-09-24] MEDS: Aspirin 81 mg Enteric Coated Tablet PO SCH (10:57)
[2022-09-24] MEDS: Ezetimibe 10 MG TAB PO SCH (10:57)
[2022-09-24] MEDS: Empagliflozin 10 MG TAB PO SCH (10:58)
[2022-09-24] MEDS: Clopidogrel Bisulfate 75 MG TAB PO SCH (10:58)
[2022-09-24] MEDS: HYDROcodone/Acetaminophen 10/325 mg Tablet PO PRN (11:50)
[2022-09-24] MEDS ORDERED: Sodium Chloride 0.9% 500 ML IV SCH (14:45)
[2022-09-24] MEDS ORDERED: Iopamidol 370 76% 100 ML VIAL ONE (15:23)
[2022-09-24 15:24] LABS: Anion Gap 9 mmol/L (10-20); BUN (Urea Nitrogen) 17 mg/dL (8.4-25.7); Calc. Creatinine Clearance 124 mL/min (70-130); Calcium 8.1 mg/dL (7.8-10.44); Carbon Dioxide 24 mmol/L (23-31); Chloride 108 mmol/L (98-107); Estimated GFR 79; Glucose 127 mg/dL (80-115); Sodium 137 mmol/L (136-145)
[2022-09-24 15:55] LABS: Magnesium 1.8 mg/dL (1.6-2.6)
[2022-09-24 15:55] LABS: Hemoglobin 14.1 g/dL (14.0-18.0); Platelet Count 199 10x3/uL (130-400)
[2022-09-24] MEDS ORDERED: QUEtiapine 25 MG TAB PO SCH (21:00)
[2022-09-24] MEDS: Rosuvastatin 5 MG TAB PO SCH (22:22)
[2022-09-25 05:34] LABS: #Eosinphils 0.2 thou/uL (0.0-0.7); #Lymphocytes 2.1 thou/uL (1.20-3.40); #Monocytes 0.7 thou/uL (0.11-0.59); #Neutrophils 3.6 thou/uL (1.40-6.50); %Basophils 0.4 % (0.0-1.0); %Eosinophils 2.7 % (0.0-10.0); %Lymphocytes 31.2 % (21.0-51.0); %Monocytes 11.1 % (0.0-10.0); %Neutrophils 54.6 % (42.0-75.0); Hemoglobin 13.1 g/dL (14.0-18.0); Mean Corpuscular HGB CONC 33.5 g/dL (32.0-36.0); Mean Corpuscular Hemoglobin 30.5 pg (27.0-31.0); Mean Corpuscular Volume 91.1 fl (78.0-98.0); Mean Platelet Volume 8.7 fL (7.4-10.4); Platelet Count 170 10x3/uL (130-400); RBC Distribution Width 12.5 % (11.5-14.5); Red Blood Cell (RBC) Count 4.28 mill/uL (4.70-6.10); White Blood Cell (WBC) Count 6.6 10x3/uL (4.8-10.8)
[2022-09-25 05:52] LABS: Anion Gap 9 mmol/L (10-20); BUN (Urea Nitrogen) 15 mg/dL (8.4-25.7); Calc. Creatinine Clearance 123 mL/min (70-130); Calcium 8.5 mg/dL (7.8-10.44); Carbon Dioxide 23 mmol/L (23-31); Chloride 108 mmol/L (98-107); Estimated GFR 78; Glucose 90 mg/dL (80-115); Magnesium 1.9 mg/dL (1.6-2.6); Potassium 4.2 mmol/L (3.5-5.1); Sodium 136 mmol/L (136-145)
[2022-09-25] MEDS ORDERED: Polyethylene Glycol 3350 17 GM Packet PO SCH (07:30)
[2022-09-25 08:03] VITALS: BP 123/69; TEMP 97.8
[2022-09-25] MEDS: Ezetimibe 10 MG TAB PO SCH (08:43)
[2022-09-25] MEDS: Aspirin 81 mg Enteric Coated Tablet PO SCH (08:43)
[2022-09-25] MEDS: Empagliflozin 10 MG TAB PO SCH (08:44)
[2022-09-25] MEDS: Lisinopril 10 MG TAB PO SCH (08:44)
[2022-09-25] MEDS: Clopidogrel Bisulfate 75 MG TAB PO SCH (08:44)
[2022-09-25] MEDS: Fish Oil 1,000 MG CAP PO SCH (08:44)
== END 2022-09-25 11:15 | disposition home or self-care (01) | DRG 287 ==
LOC: NEURO 16:48 → OBSVTOIN 09-23 17:11
PROVIDERS: ADMIT Family Medicine; ATTEND Family Medicine
PROC: 4A023N7 Measurement of Cardiac Sampling and Pressure, Left Heart, Percutaneous Approach (ICD-10-PCS; principal; 2022-09-24)
PROC: B2151ZZ Fluoroscopy of Left Heart using Low Osmolar Contrast (ICD-10-PCS; 2022-09-24)
PROC: B2111ZZ Fluoroscopy of Multiple Coronary Arteries using Low Osmolar Contrast (ICD-10-PCS; 2022-09-24)
PROC: B2121ZZ Fluoroscopy of Single Coronary Artery Bypass Graft using Low Osmolar Contrast (ICD-10-PCS; 2022-09-24)
PROC: B2181ZZ Fluoroscopy of Left Internal Mammary Bypass Graft using Low Osmolar Contrast (ICD-10-PCS; 2022-09-24)
DX: I25.118 Atherosclerotic heart disease of native coronary artery with other forms of angina pectoris (principal); I50.32 Chronic diastolic (congestive) heart failure; R07.89 Other chest pain; Z20.822 Contact with and (suspected) exposure to COVID-19; R00.1 Bradycardia, unspecified; I11.0 Hypertensive heart disease with heart failure; I25.82 Chronic total occlusion of coronary artery; E78.5 Hyperlipidemia, unspecified; F41.9 Anxiety disorder, unspecified; Z88.0 Allergy status to penicillin; Z95.1 Presence of aortocoronary bypass graft; Z95.5 Presence of coronary angioplasty implant and graft; Z85.46 Personal history of malignant neoplasm of prostate; Z90.79 Acquired absence of other genital organ(s); Z88.8 Allergy status to other drugs, medicaments and biological substances; Z79.899 Other long term (current) drug therapy; Z79.82 Long term (current) use of aspirin; Z82.49 Family history of ischemic heart disease and other diseases of the circulatory system
CPT/HCPCS: 36415; 71045; 74176; 80048; 83735; 85014; 85018; 85025; 85049; 93005; 93010; 93459; 96372; 96374; 99152; 99153; C1769; C1894; G0378; J1644; J1650; J1885; J2001; J2250; J2405; J3010; J7050; Q9967; U0003; U0005

== ENCOUNTER 2023-08-28 07:45 | Outpatient (CLI) | payer MEDICARE, OTHER | END 2023-08-28 07:46 | disposition home or self-care (01) | LOC: BICRAD 07:45 | PROVIDERS: ATTEND Nurse Practitioner Family | DX: M47.816 Spondylosis without myelopathy or radiculopathy, lumbar region (principal) | CPT/HCPCS: 72120 ==

== ENCOUNTER 2023-11-12 14:05 | Outpatient (CLI) | payer MEDICARE, OTHER | END 2023-11-12 14:06 | disposition home or self-care (01) | LOC: SCSMRI 14:05 | PROVIDERS: ATTEND Internal Medicine | DX: R41.3 Other amnesia (principal) | CPT/HCPCS: 70551 ==

== ENCOUNTER 2024-01-28 08:30 | Inpatient (IN) | payer MEDICARE, OTHER ==
[2024-01-28 08:55] VITALS: BMI 28.3
[2024-01-28 10:13] LABS: Hematocrit 39.3 % (38.8-50.0); Hemoglobin 13.8 g/dL (13.5-17.5); Mean Corpuscular HGB CONC 35.1 g/dL (32.0-36.0); Mean Corpuscular Volume 88.3 fL (81.2-95.1); Mean Platelet Volume 10.9 fL (7.4-10.4); Platelet Count 272 10x3/uL (150-450); RBC Distribution Width 13.4 % (11.5-14.5); Red Blood Cell (RBC) Count 4.45 10x6/uL (4.32-5.72); White Blood Cell (WBC) Count 9.1 10x3/uL (3.5-10.5)
[2024-01-28 10:24] LABS: Prothrombin Time 11.1 sec (9.5-12.1)
[2024-01-28 10:28] LABS: ALT (SGPT) 23 U/L (8-55); AST (SGOT) 19 U/L (5-34); Alkaline Phosphatase 65 U/L (40-110); Anion Gap 14 mmol/L (10-20); BUN (Urea Nitrogen) 22 mg/dL (8.4-25.7); Bilirubin, Total 0.5 mg/dL (0.2-1.2); Calc. Creatinine Clearance 77 mL/min (70-130); Calcium 9.7 mg/dL (7.8-10.44); Carbon Dioxide 27 mmol/L (23-31); Chloride 100 mmol/L (98-107); Estimated GFR 63; Globulin 2.4 g/dL (2.4-3.5); Glucose 78 mg/dL (80-115); Potassium 5.1 mmol/L (3.5-5.1); Protein, Total 6.4 g/dL (5.8-8.1); Sodium 136 mmol/L (136-145)
[2024-02-04] MEDS ORDERED: Ondansetron PF 4 MG/2 ML Vial ONE (10:01)
[2024-02-04] MEDS ORDERED: Lidocaine 1% PF 5 ML VIAL ONE (10:01)
[2024-02-04] MEDS ORDERED: Rocuronium Bromide 10 MG/ML (10ML VIAL) ONE (10:01)
[2024-02-04] MEDS ORDERED: Dexamethasone 20 MG/5 ML VIAL ONE (10:01)
[2024-02-04] MEDS ORDERED: PROPOFOL 200 MG/20 ML VIAL ONE (10:01)
[2024-02-04] MEDS ORDERED: Iopamidol 370 76% 100 ML VIAL ONE (12:03)
== END 2024-02-04 14:30 | disposition home or self-care (01) | DRG 274 ==
LOC: SURG A 02-04 07:21
PROVIDERS: ADMIT Internal Medicine Cardiovascular Disease; ATTEND Internal Medicine Cardiovascular Disease
PROC: 02L73DK Occlusion of Left Atrial Appendage with Intraluminal Device, Percutaneous Approach (ICD-10-PCS; principal; 2024-02-04)
PROC: B246ZZ4 Ultrasonography of Right and Left Heart, Transesophageal (ICD-10-PCS; 2024-02-04)
DX: I48.0 Paroxysmal atrial fibrillation (principal); Z00.6 Encounter for examination for normal comparison and control in clinical research program; R58 Hemorrhage, not elsewhere classified; Z79.899 Other long term (current) drug therapy; Z79.01 Long term (current) use of anticoagulants
CPT/HCPCS: 33340; 80053; 85027; 85347; 85610; 86850; 86900; 86901; 93306; 93312; C1759; C1760; C1893; C1894; J1100; J2405; J2704; J3010; J3490

== ENCOUNTER 2024-02-14 11:51 | Observation (INO) | payer MEDICARE, OTHER ==
[2024-02-14] MEDS ORDERED: Aspirin Chewable 81 MG TAB ONE (12:23)
[2024-02-14 13:25] LABS: #Basophils Less than 0.03 10x3/uL (0.0-0.2); %Basophils 0.1 % (0.0-1.0); %Eosinophils 0.6 % (0.0-10.0); %Lymphocytes 14.6 % (21.0-51.0); %Monocytes 10.8 % (0.0-10.0); %Neutrophils 73.2 % (42.0-75.0); Hematocrit 30.7 % (42.0-52.0); Hemoglobin 10.8 g/dL (14.0-18.0); Mean Corpuscular HGB CONC 35.2 g/dL (32.0-36.0); Mean Corpuscular Hemoglobin 31.2 pg (27.0-31.0); Mean Corpuscular Volume 88.7 fL (78.0-98.0); Mean Platelet Volume 10.4 fL (7.4-10.4); Platelet Count 207 10x3/uL (130-400); RBC Distribution Width 13.5 % (11.5-14.5); Red Blood Cell (RBC) Count 3.46 mill/uL (4.70-6.10)
[2024-02-14 13:47] LABS: ALT (SGPT) 19 U/L (8-55); AST (SGOT) 16 U/L (5-34); Albumin 3.1 g/dL (3.4-4.8); Alkaline Phosphatase 55 U/L (40-110); Anion Gap 15 mmol/L (10-20); BUN (Urea Nitrogen) 19 mg/dL (8.4-25.7); Bilirubin, Total 0.7 mg/dL (0.2-1.2); Calc. Creatinine Clearance 0 mL/min (70-130); Carbon Dioxide 19 mmol/L (23-31); Chloride 105 mmol/L (98-107); Estimated GFR 78; Globulin 2.2 g/dL (2.4-3.5); Glucose 111 mg/dL (80-115); Potassium 4.1 mmol/L (3.5-5.1); Protein, Total 5.3 g/dL (5.8-8.1); Sodium 135 mmol/L (136-145)
[2024-02-14 13:49] LABS: Troponin I Less than 0.010 ng/mL (< 0.028)
[2024-02-14] MEDS ORDERED: Iopamidol 370 76% 100 ML VIAL ONE (14:08)
[2024-02-14 14:21] LABS: INR-International Normal Ratio 1.6; Prothrombin Time 19.4 sec (12.0-14.7)
[2024-02-14 14:22] LABS: PTT 28.2 sec (22.9-36.1)
[2024-02-14] MEDS ORDERED: Ondansetron ODT 4 MG TAB PO PRN (16:20)
[2024-02-14 16:58] LABS: Troponin I 0.011 ng/mL (< 0.028)
[2024-02-14] MEDS: traMADol HCl 50 MG TAB PO PRN (17:34)
[2024-02-14] MEDS: Acetaminophen 325 MG TAB PO SCH (17:34)
[2024-02-14] MEDS: Sodium Chloride 0.9% 1,000 ML IV SCH (17:35)
[2024-02-14 17:49] VITALS: BMI 28.3
[2024-02-14] MEDS ORDERED: Nitroglycerin 0.4 MG TAB (25 Tab Bottle) SL PRN (18:12)
[2024-02-14] MEDS ORDERED: Evolocumab [Repatha Sureclick] 140 MG/ML Pen.Injctr FS SCH (18:15)
[2024-02-14 19:07] LABS: Troponin I 0.017 ng/mL (< 0.028)
[2024-02-14] MEDS: Apixaban 5 MG TAB PO SCH (21:10)
[2024-02-14] MEDS: Ranolazine ER 500 MG TAB PO SCH (21:10)
[2024-02-14] MEDS: Pantoprazole DR 40 MG TAB PO SCH (21:10)
[2024-02-14] MEDS: Ketorolac Tromethamine 30 MG (1 mL) VIAL IVP SCH (21:13)
[2024-02-14] MEDS: Famotidine 20 MG TAB PO SCH (22:12)
[2024-02-14] MEDS: Rosuvastatin 5 MG TAB PO SCH (22:28)
[2024-02-15 05:11] LABS: #Basophils 0.03 10x3/uL (0.0-0.2); %Basophils 0.4 % (0.0-1.0); %Eosinophils 1.8 % (0.0-10.0); %Lymphocytes 27.9 % (21.0-51.0); %Monocytes 12.3 % (0.0-10.0); %Neutrophils 57.2 % (42.0-75.0); Hematocrit 32.9 % (42.0-52.0); Hemoglobin 11.3 g/dL (14.0-18.0); Mean Corpuscular HGB CONC 34.3 g/dL (32.0-36.0); Mean Corpuscular Hemoglobin 30.1 pg (27.0-31.0); Mean Corpuscular Volume 87.5 fL (78.0-98.0); Mean Platelet Volume 10.9 fL (7.4-10.4); Platelet Count 217 10x3/uL (130-400); Red Blood Cell (RBC) Count 3.76 mill/uL (4.70-6.10)
[2024-02-15 05:44] LABS: Anion Gap 11 mmol/L (10-20); BUN (Urea Nitrogen) 22 mg/dL (8.4-25.7); Calc. Creatinine Clearance 76 mL/min (70-130); Calcium 8.3 mg/dL (7.8-10.44); Carbon Dioxide 23 mmol/L (23-31); Chloride 106 mmol/L (98-107); Estimated GFR 62; Glucose 104 mg/dL (80-115); Potassium 3.7 mmol/L (3.5-5.1); Sodium 136 mmol/L (136-145)
[2024-02-15] MEDS: Ezetimibe 10 MG TAB PO SCH (09:05)
[2024-02-15] MEDS: Clopidogrel Bisulfate 75 MG TAB PO SCH (09:05)
[2024-02-15] MEDS: Spironolactone 25 MG TAB PO SCH (09:06)
[2024-02-15] MEDS: Isosorbide Mononitrate 60 MG ER.TAB PO SCH (09:06)
[2024-02-15] MEDS: Escitalopram Oxalate 10 mg Tablet PO SCH (09:06)
[2024-02-15] MEDS: Morphine 2 MG/ML VIAL SLOW IVP SCH (09:07)
[2024-02-15] MEDS ORDERED: Morphine 2 MG/ML VIAL SLOW IVP PRN (09:47)
[2024-02-15 13:01] VITALS: BP 155/96; TEMP 98.5
[2024-02-15] MEDS: Potassium Chloride 20 MEQ TAB PO SCH (15:04)
[2024-02-17] MEDS ORDERED: Apixaban 5 MG TAB PO SCH (09:00)
== END 2024-02-15 16:23 | disposition home or self-care (01) ==
LOC: ERS 11:51 → 2SW 15:55
PROVIDERS: ADMIT Internal Medicine; ATTEND Internal Medicine
DX: R55 Syncope and collapse (principal); I10 Essential (primary) hypertension; E78.5 Hyperlipidemia, unspecified; D64.9 Anemia, unspecified; E87.1 Hypo-osmolality and hyponatremia; I25.10 Atherosclerotic heart disease of native coronary artery without angina pectoris; Z95.1 Presence of aortocoronary bypass graft; Z88.0 Allergy status to penicillin; Z88.8 Allergy status to other drugs, medicaments and biological substances; Z79.899 Other long term (current) drug therapy; Z90.79 Acquired absence of other genital organ(s)
CPT/HCPCS: 70450; 71275; 80048; 80053; 82550; 82962; 84484 ×2; 85025 ×2; 85610; 85730; 93005; 96361; 96374; 96375; G0378 ×3; J1885; J2272; J7050; Q9967; 36415; 36416

== ENCOUNTER 2025-03-27 07:28 | Observation (INO) | payer MEDICARE, OTHER ==
[2025-03-27 08:26] LABS: #Basophils Less than 0.03 10x3/uL (0.0-0.2); #Eosinophils 0.13 10x3/uL (0.0-0.7); #Monocytes 0.56 10x3/uL (0.11-0.59); #Neutrophils 3.97 10x3/uL (1.40-6.50); %Basophils 0.2 % (0.0-1.0); %Eosinophils 2.2 % (0.0-10.0); %Lymphocytes 21.8 % (21.0-51.0); %Monocytes 9.3 % (0.0-10.0); %Neutrophils 66.2 % (42.0-75.0); Hematocrit 40.2 % (42.0-52.0); Hemoglobin 13.6 g/dL (14.0-18.0); Mean Corpuscular Hemoglobin 30.4 pg (27.0-31.0); Mean Corpuscular Volume 89.7 fL (78.0-98.0); Platelet Count 241 10x3/uL (130-400); Red Blood Cell (RBC) Count 4.48 mill/uL (4.70-6.10); White Blood Cell (WBC) Count 6.00 10x3/uL (4.8-10.8)
[2025-03-27 08:39] LABS: INR-International Normal Ratio 1.0; Prothrombin Time 12.8 sec (12.0-14.7)
[2025-03-27 08:41] LABS: PTT 26.5 sec (22.9-36.1)
[2025-03-27 08:43] LABS: ALT (SGPT) 18 U/L (Less than 45); AST (SGOT) 21 U/L (11-34); Albumin 4.1 g/dL (3.1-4.5); Alkaline Phosphatase 64 U/L (40-110); Anion Gap 12 mmol/L (10-20); BUN (Urea Nitrogen) 16 mg/dL (8.4-25.7); Bilirubin, Total 0.5 mg/dL (0.3-1.2); Calc. Creatinine Clearance 0 mL/min (70-130); Calcium 8.8 mg/dL (7.8-10.44); Carbon Dioxide 22 mmol/L (23-31); Chloride 107 mmol/L (98-107); Globulin 2.8 g/dL (2.4-3.5); Glucose 118 mg/dL (83-110); Potassium 4.8 mmol/L (3.5-5.1); Sodium 136 mmol/L (136-145)
[2025-03-27] MEDS ORDERED: Droperidol 5 MG/2 ML VIAL ONE (09:39)
[2025-03-27 09:54] LABS: Troponin I Less than 0.010 ng/mL (< 0.028)
[2025-03-27] MEDS ORDERED: Iopamidol-370 76% 500 ML MDV (1 ML CHARGE) ONE (09:54)
[2025-03-27] MEDS ORDERED: Senokot S 8.6-50 MG TAB PO PRN (10:48)
[2025-03-27] MEDS ORDERED: hydrALAZINE 20 MG/ML VIAL SLOW IVP PRN (10:48)
[2025-03-27] MEDS ORDERED: Ondansetron PF 4 MG/2 ML Vial IVP PRN (10:48)
[2025-03-27] MEDS ORDERED: Calcium Carbonate 500 MG ChewTAB PO PRN (10:48)
[2025-03-27] MEDS ORDERED: Electrolyte Replacement Protocol 1 EACH FS SCH (11:00)
[2025-03-27] MEDS ORDERED: Aspirin Chewable 81 MG TAB ONE (11:35)
[2025-03-27 14:16] LABS: Bacteria/HPF None Seen HPF (None Seen); CAUTI Indications for Culture Alt mental st,lethar; Glucose, Urine (Dipstick) Normal (Negative); Leukocyte Negative Leu/uL (Negative); Protein, Urine (Dipstick) Negative (Neg-Trace); WBC/HPF 0-3 HPF (0-3)
[2025-03-27 14:18] LABS: Specific Gravity, Urine Greater than 1.050 (1.002-1.036)
[2025-03-27 14:19] LABS: Urine Culture Reflex No No
[2025-03-27] MEDS: Rosuvastatin 5 MG TAB PO SCH (16:03)
[2025-03-27] MEDS: Acetaminophen 325 MG TAB PO PRN (16:04)
[2025-03-27 16:06] VITALS: BMI 29.1
[2025-03-27] MEDS: Pantoprazole 40 MG DR.TAB PO SCH (21:51)
[2025-03-27] MEDS: Melatonin 3 MG TAB PO PRN (21:52)
[2025-03-28 04:10] LABS: #Basophils Less than 0.03 10x3/uL (0.0-0.2); #Eosinophils 0.20 10x3/uL (0.0-0.7); #Monocytes 0.69 10x3/uL (0.11-0.59); #Neutrophils 3.37 10x3/uL (1.40-6.50); %Basophils 0.3 % (0.0-1.0); %Eosinophils 3.1 % (0.0-10.0); %Lymphocytes 32.3 % (21.0-51.0); %Monocytes 10.8 % (0.0-10.0); %Neutrophils 53.0 % (42.0-75.0); Hematocrit 39.1 % (42.0-52.0); Hemoglobin 12.9 g/dL (14.0-18.0); Mean Corpuscular Hemoglobin 30.1 pg (27.0-31.0); Mean Corpuscular Volume 91.4 fL (78.0-98.0); Platelet Count 220 10x3/uL (130-400); Red Blood Cell (RBC) Count 4.28 mill/uL (4.70-6.10); White Blood Cell (WBC) Count 6.37 10x3/uL (4.8-10.8)
[2025-03-28 04:38] LABS: Anion Gap 11 mmol/L (10-20); BUN (Urea Nitrogen) 14 mg/dL (8.4-25.7); Calc. Creatinine Clearance 93 mL/min (70-130); Calcium 8.3 mg/dL (7.8-10.44); Carbon Dioxide 24 mmol/L (23-31); Chloride 107 mmol/L (98-107); Glucose 100 mg/dL (83-110); Potassium 3.8 mmol/L (3.5-5.1); Sodium 138 mmol/L (136-145)
[2025-03-28] MEDS: Aspirin 81 mg Enteric Coated Tablet PO SCH (10:01)
[2025-03-28] MEDS: Ezetimibe 10 MG TAB PO SCH (10:01)
[2025-03-28] MEDS: Enoxaparin 40 MG (0.4 mL) SYRINGE SC SCH (10:02)
[2025-03-28] MEDS: Torsemide 20 MG TAB PO SCH (10:02)
[2025-03-28 13:10] VITALS: BP 145/71; TEMP 98
== END 2025-03-28 15:00 | disposition home or self-care (01) ==
LOC: ERS 07:28 → ERHOLD 10:26 → 2SE 15:37
PROVIDERS: ADMIT Internal Medicine; ATTEND Internal Medicine
PROC: B24BZZZ Ultrasonography of Heart with Aorta (ICD-10-PCS; principal; 2025-03-28)
DX: R42 Dizziness and giddiness (principal); I12.9 Hypertensive chronic kidney disease with stage 1 through stage 4 chronic kidney disease, or unspecified chronic kidney disease; N18.2 Chronic kidney disease, stage 2 (mild); D63.1 Anemia in chronic kidney disease; I48.0 Paroxysmal atrial fibrillation; I25.10 Atherosclerotic heart disease of native coronary artery without angina pectoris; E78.5 Hyperlipidemia, unspecified; E86.0 Dehydration; Z86.73 Personal history of transient ischemic attack (TIA), and cerebral infarction without residual deficits; Z95.5 Presence of coronary angioplasty implant and graft; Z95.818 Presence of other cardiac implants and grafts; Z98.49 Cataract extraction status, unspecified eye; Z90.79 Acquired absence of other genital organ(s); Z98.890 Other specified postprocedural states; Z88.0 Allergy status to penicillin; Z88.8 Allergy status to other drugs, medicaments and biological substances; Z79.02 Long term (current) use of antithrombotics/antiplatelets; Z79.82 Long term (current) use of aspirin; Z79.899 Other long term (current) drug therapy
CPT/HCPCS: 0042T; 70450; 70496; 70498; 70551; 80048; 80053; 81001; 82962; 83880; 84484; 85025 ×2; 85610; 85730; 93005; 93306; 94760; 96374; 99285; J1650; J1790; 36415; 36416; 96372; G0378; Q9967

== ENCOUNTER 2025-06-08 13:55 | Outpatient (CLI) | payer MEDICARE, OTHER | END 2025-06-08 13:56 | disposition home or self-care (01) | LOC: BICRAD 13:55 | PROVIDERS: ATTEND Internal Medicine | DX: M54.50 Low back pain, unspecified (principal); M79.18 Myalgia, other site; M47.816 Spondylosis without myelopathy or radiculopathy, lumbar region; M43.16 Spondylolisthesis, lumbar region; M16.12 Unilateral primary osteoarthritis, left hip; M76.22 Iliac crest spur, left hip | CPT/HCPCS: 72100 ==

== ENCOUNTER 2025-06-16 09:38 | Outpatient (CLI) | payer MEDICARE, OTHER | END 2025-06-16 09:39 | disposition home or self-care (01) | LOC: SCSMRI 09:38 | PROVIDERS: ATTEND Specialist | DX: S76.312A Strain of muscle, fascia and tendon of the posterior muscle group at thigh level, left thigh, initial encounter (principal); S73.192A Other sprain of left hip, initial encounter ==